=== PATIENT | female | born 1970 | race Caucasian/White ===

== ENCOUNTER → 2016-09-09 | Outpatient (CLI) | payer OTHER ==
--- NOTE | 2016-09-09 12:15 | XR ---
EXAMINATION TYPE: XR hand complete bilateral DATE OF EXAM: 09/09/2016 10:36 AM CLINICAL HISTORY: pain TECHNIQUE: Frontal, lateral and oblique images of the left hand are obtained. COMPARISON: None. FINDINGS: There is no acute fracture/dislocation evident. The joint spaces appear within normal limi ts. The overlying soft tissue appears unremarkable. IMPRESSION: There is no acute fracture or dislocation. ICD 10 NO FRACTURE, INITIAL EVALUATION EXAMINATION TYPE: XR hand complete bilateral DATE OF EXAM: 09/09/2016 10:36 AM CLINICAL HISTORY: pain TECHNIQUE: Frontal, lateral and oblique images of the right hand are obtained. COMPARISON: None. FINDINGS: There is no acute fracture/dislocation evident. The joint spaces appear within normal limi ts. The overlying soft tissue appears unremarkable. IMPRESSION: There is no acute fracture or dislocation ICD 10 NO FRACTURE, INITIAL EVALUATION
== END | disposition home or self-care (01) ==
LOC: RADXRMAIN 10:23
PROVIDERS: ATTEND Family Medicine
DX: M19.042 Primary osteoarthritis, left hand (principal); M19.041 Primary osteoarthritis, right hand

== ENCOUNTER → 2016-09-18 | Outpatient (CLI) | payer OTHER ==
--- NOTE | 2016-09-18 10:50 | US ---
EXAMINATION TYPE: US abdomen complete DATE OF EXAM: 09/18/2016 9:46 AM COMPARISON: Previous study dated 01/18/2016. CLINICAL HISTORY: E27.8 Enlarged adrenal. Enlarged left adrenal, GB removed 01/2016 EXAM MEASUREMENTS: Liver Length: 17.0 cm CBD: 0.3 cm CHD: 0.3 cm Spleen: 10.1 cm Right Kidney: 11.2 x 5.7 x 3.8 cm Left Kidney: 11.1 x 4.5 x 4.7 cm Pancreas: wnl Liver: wnl Gallbladder: Surgically absent CBD: wnl CHD: wnl Spleen: wnl Right Kidney: wnl Left Kidney: wnl Upper IVC: seen Abd Aorta: seen Adrenal glands not visualized The adrenal glands are not visualized. The remainder the examination is within normal limits. IMPRESSION: 1. NONVISUALIZATION ADRENAL GLANDS. 2. STATUS POST CHOLECYSTECTOMY.
== END | disposition home or self-care (01) ==
LOC: RADUSWWP 08:49
PROVIDERS: ATTEND Surgery
DX: E27.8 Other specified disorders of adrenal gland (principal); Z90.49 Acquired absence of other specified parts of digestive tract
CPT/HCPCS: 76700; 77063

== ENCOUNTER → 2016-09-18 | Outpatient (CLI) | payer OTHER ==
--- NOTE | 2016-09-21 13:07 | MM ---
Reason for exam: screening (asymptomatic). Last mammogram was performed 1 year and 6 months ago. History: Patient had first child at age 35. Taking hormonal contraceptives for 6 months. Physical Findings: A clinical breast exam by your physician is recommended on an annual basis and results should be correlated with mammographic findings. MG 3D Screening Mammo W/Cad Bilateral CC and MLO view(s) were taken. Prior study comparison: March 15, 2015, bilateral MG 3d screening mammo w/cad. The breast tissue is heterogeneously dense. This may lower the sensitivity of mammography. Finding: There is a 7 mm high density, oval mass located 7 cm from the nipple in the upper outer quadrant, posterior position of the left breast on CC view, consistent with possible cyst, mass. New finding since March 15, 2015. ASSESSMENT: Incomplete: need additional imaging evaluation, BI-RAD 0 RECOMMENDATION: Ultrasound of the left breast. [facility] will attempt to contact patient to return for ultrasound.
== END | disposition home or self-care (01) ==
LOC: RADMAMWWP 08:53
PROVIDERS: ATTEND Family Medicine
DX: Z12.31 Encounter for screening mammogram for malignant neoplasm of breast (principal)
CPT/HCPCS: 77063; G0202

== ENCOUNTER → 2016-09-24 | Outpatient (CLI) | payer OTHER | END | disposition home or self-care (01) | LOC: RADMRIMAIN 08:29 | PROVIDERS: ATTEND Family Medicine | DX: Z53.9 Procedure and treatment not carried out, unspecified reason (principal) ==

== ENCOUNTER → 2016-10-05 | Outpatient (CLI) | payer OTHER ==
--- NOTE | 2016-10-05 08:38 | USB ---
Reason for exam: additional evaluation requested from abnormal screening. History: Patient had first child at age 35. Taking hormonal contraceptives for 6 months. Physical Findings: Nurse did not find any significant physical abnormalities on exam. US Breast Workup LT Left breast ultrasound includes all four quadrants, the retroareolar region and axilla. Finding demonstrates three oval, cystic lesions measuring 1.0 x 0.5 x 0.8cm at 1 o'clock, a 0.6 x 0.5 x 0.5cm at 1 o'clock and 0.5 x 0.3 x 0.5cm at 2 o'clock. These results were verbally communicated with the patient and result sheet given to the patient on 10/05/16. ASSESSMENT: Benign, BI-RAD 2 RECOMMENDATION: Return to routine screening mammogram schedule for both breasts.
== END | disposition home or self-care (01) ==
LOC: RADUSWWP 07:39
PROVIDERS: ATTEND Family Medicine
DX: R92.8 Other abnormal and inconclusive findings on diagnostic imaging of breast (principal)

== ENCOUNTER → 2017-10-01 | Outpatient (CLI) | payer OTHER ==
--- NOTE | 2017-10-02 12:28 | US ---
EXAMINATION TYPE: US thyroid st tissue head/neck DATE OF EXAM: 10/01/2017 COMPARISON: NONE CLINICAL HISTORY: E05.90 thyrotoxicosis, hyperthyroidism. GLAND SIZE: Right Lobe: 4.9 x 1.8 x 1.7 cm Overall Parenchyma: heterogenous Left Lobe: 5.3 x 1.7 x 1.6 cm Overall Parenchyma: heterogeneous Isthmus Thickness: 0.3 cm NODULES RIGHT: # of nodules measured on right: 0 Subcentimeter nodules noted. LEFT: # of nodules measured on left: 2 1. 1.0 X 0.5 x 0.8 cm hypoechoic solid nodule at the upper pole with well-defined margins. This no dule is wider than tall and shows intranodular vascularity. No prior size 2. 1.3 X 0.6 x 0.8 cm hypoechoic solid nodule at the lower/medial pole with well-defined margins. T his nodule is wider than tall and shows intranodular vascularity. No prior size ISTHMUS: # of nodules measured in the isthmus: Bilateral neck scanned, no evidence of lymphadenopathy. IMPRESSION: Multiple bilateral thyroid nodules.
== END | disposition home or self-care (01) ==
LOC: RADUSMAIN 17:34
PROVIDERS: ATTEND Family Medicine
DX: E04.2 Nontoxic multinodular goiter (principal)
CPT/HCPCS: 76536

== ENCOUNTER → 2017-11-24 | Outpatient (CLI) | payer OTHER ==
--- NOTE | 2017-11-26 08:53 | MM ---
Reason for exam: screening (asymptomatic). Last mammogram was performed 1 year and 2 months ago. History: Patient had first child at age 35. Taking hormonal contraceptives for 6 months. Physical Findings: A clinical breast exam by your physician is recommended on an annual basis and results should be correlated with mammographic findings. MG Screening Mammo w CAD Bilateral CC and MLO view(s) were taken. Prior study comparison: September 18, 2016, bilateral MG 3d screening mammo w/cad. March 15, 2015, bilateral MG 3d screening mammo w/cad. The breast tissue is heterogeneously dense. This may lower the sensitivity of mammography. Finding: There is a 9 mm obscured mass in the upper quadrant, central position of the right breast at middle depth. Left suspicious middle depth asymmetry. ASSESSMENT: Incomplete: need additional imaging evaluation, BI-RAD 0 RECOMMENDATION: Special view mammogram of both breasts. If lesion persists on supplemental views, image directed ultrasound is recommended. [facility] will attempt to contact patient to return for supplemental views and ultrasound if indicated.
== END | disposition home or self-care (01) ==
LOC: RADMAMWWP 16:45
PROVIDERS: ATTEND Obstetrics & Gynecology
DX: Z12.31 Encounter for screening mammogram for malignant neoplasm of breast (principal)
CPT/HCPCS: 77067

== ENCOUNTER → 2017-12-07 | Outpatient (CLI) | payer OTHER ==
--- NOTE | 2017-12-07 14:20 | MM ---
Reason for exam: additional evaluation requested from abnormal screening. Last mammogram was performed less than 1 month ago. History: Patient had first child at age 35. Taking hormonal contraceptives for 6 months. MG Work Up Mamm w CAD BILAT Bilateral spot compression CC, spot compression MLO, and ML view(s) were taken. Prior study comparison: November 24, 2017, bilateral MG screening mammo w CAD. September 18, 2016, bilateral MG 3d screening mammo w/cad. The breast tissue is heterogeneously dense. This may lower the sensitivity of mammography. There are two adjacent persistent masses in the central lateral right breast at middle depth. Left asymmetry improves on additional views and appears as fibroglandular tissue. These results were verbally communicated with the patient and result sheet given to the patient on 12/07/17. ASSESSMENT: Incomplete: need additional imaging evaluation, BI-RAD 0 RECOMMENDATION: Ultrasound of the right breast. (lateral)
--- NOTE | 2017-12-07 14:23 | USB ---
Reason for exam: additional evaluation requested from abnormal screening. History: Patient had first child at age 35. Taking hormonal contraceptives for 6 months. US Breast Workup Limited RT Right limited breast ultrasound including focal area of concern, retroareolar and axilla demonstrates several cystic, benign lesions measuring 1.3 x 1.1 x 0.7cm at 9 o'clock, 1.0 x 0.8 x 0.5cm at 9 o'clock, 0.6 x 0.5 x 0.3cm at 9 o'clock and 0.7 x 0.6 x 0.6cm at 11 o'clock. These results were verbally communicated with the patient and result sheet given to the patient on 12/07/17. ASSESSMENT: Benign, BI-RAD 2 RECOMMENDATION: Return to routine screening mammogram schedule for both breasts.
== END | disposition home or self-care (01) ==
LOC: RADMAMWWP 10:22
PROVIDERS: ATTEND Obstetrics & Gynecology
DX: R92.8 Other abnormal and inconclusive findings on diagnostic imaging of breast (principal)
CPT/HCPCS: 77066

== ENCOUNTER 2018-01-03 11:48 | Day surgery (SDC) | payer OTHER ==
[2017-12-30 18:52] VITALS: BMI 29.5
--- NOTE | 2018-01-02 17:02 | P.GSHP ---
History of Present Illness H&P Date: 01/03/18 CHIEF COMPLAINT: GERD HISTORY OF PRESENT ILLNESS: The patient is a 47-year-old female who presents reports gastroesophageal reflux disease. Upper endoscopy was offered for further evaluation and management. PAST MEDICAL HISTORY: Please see list. PAST SURGICAL HISTORY: Please see list. MEDICATIONS: Please see list. ALLERGIES: Please see list. SOCIAL HISTORY: No illicit drug use FAMILY HISTORY: No reports of Crohn disease or ulcerative colitis. REVIEW OF ORGAN SYSTEMS: CONSTITUTIONAL: No reports of fevers or chills. GI: Denies any blood in stools or constipation. PHYSICAL EXAM: VITAL SIGNS: Stable GENERAL: Well-developed and pleasant in no acute distress. HEENT: No scleral icterus. Extraocular movements grossly intact. Moist buccal mucosa. NECK: Supple without lymphadenopathy. CHEST: Unlabored respirations. Equal bilateral excursions. CARDIOVASCULAR: Regular rate and rhythm. Distal 2+ pulses. ABDOMEN: Soft, nondistended. MUSCULOSKELETAL: No clubbing, cyanosis, or edema. ASSESSMENT: 1. Gastroesophageal reflux disease PLAN: 1. Recommend proceeding with an upper endoscopy Past Medical History Past Medical History: Asthma, GERD/Reflux Additional Past Medical History / Comment(s): RUQ pain History of Any Multi-Drug Resistant Organisms: None Reported Past Surgical History: Cholecystectomy, Tonsillectomy Additional Past Surgical History / Comment(s): LAPAROSCOPY FOR Ovarian Cyst Past Anesthesia/Blood Transfusion Reactions: No Reported Reaction Smoking Status: Former smoker - Past Family History Mother Family Medical History: No Reported History Medications and Allergies Home Medications Medication Instructions Recorded Confirmed Type Butalb/Acetaminophen/Caffeine 1 - 2 cap PO Q4HR PRN 12/30/17 12/30/17 History [Fioricet 50-300-40 mg Capsule] Celecoxib [CeleBREX] 200 mg PO BID 12/30/17 12/30/17 History Esomeprazole Magnesium [NexIUM 20 mg PO DAILY 12/30/17 12/30/17 History 24Hr] Levonorgestrel [Mirena] 1 implant VAGINAL [id number] 12/30/17 12/30/17 History Allergies Allergy/AdvReac Type Severity Reaction Status Date / Time No Known Allergies Allergy Verified 12/30/17 18:38
[~2018-01-03 11:48] MED LIST: LACTATED RINGERS 1,000 ML IV SCH
[2018-01-03] MEDS ORDERED: LIDOCAINE 1% 20 ML VIAL (10MG/ML) FOR IV START INTRADERMA ONE (13:03)
[2018-01-03 13:06] VITALS: TEMP 98.2
[2018-01-03] MEDS ORDERED: PROPOFOL 10 MG/ML 20 ML VIAL IV ONE (13:52)
--- NOTE | 2018-01-03 14:09 | P.PCN ---
Date of Procedure: 01/03/18 Description of Procedure: PREOPERATIVE DIAGNOSIS: Gastroesophageal reflux disease. POSTOPERATIVE DIAGNOSIS: Gastroesophageal reflux disease. Diaphragmatic hiatal hernia without obstruction. Gastric polyps Mild gastritis OPERATION: Esophagogastroduodenoscopy with biopsies along antrum. SURGEON: Nitza Dumas MD ANESTHESIA: MAC. INDICATIONS: The patient is a 47-year-old female who presents with a history of reflux disease. Benefits and risks of the procedure were described. Informed consent was obtained. DESCRIPTION: The patient was brought into the endoscopy suite and laid in the left lateral decubitus position. An Olympus gastroscope was passed along the posterior oropharynx down to the distal esophagus where the squamocolumnar junction was encountered at 34 cm from the incisors. The stomach was entered and no bile reflux was found. Additional findings are listed below. Biopsies with cold forceps were obtained of the antrum. The first through third portion of the duodenum was examined and unremarkable. Retroflexion of the scope confirmed Hill grade 4 lower esophageal valve. The squamocolumnar junction demonstrated LA grade B erosive esophagitis. The stomach was desufflated. The patient tolerated the procedure well. FINDINGS: Squamocolumnar junction 34 cm from the incisors. Diaphragmatic hiatus at 40 cm. Hiatal hernia 6 cm, sliding type Hill grade 4 lower esophageal valve. LA grade B erosive esophagitis. Mild chronic gastritis Gastric polyp along antrum biopsied No active duodenitis. RECOMMENDATIONS: Upper endoscopy as needed. Plan - Discharge Summary New Discharge Prescriptions: No Action Butalb/Acetaminophen/Caffeine [Fioricet 50-300-40 mg Capsule] 1 - 2 cap PO Q4HR PRN PRN Reason: Migraine Headache Celecoxib [CeleBREX] 200 mg PO BID Esomeprazole Magnesium [NexIUM 24Hr] 20 mg PO DAILY Levonorgestrel [Mirena] 1 implant VAGINAL [id number] Discharge Medication List Butalb/Acetaminophen/Caffeine [Fioricet 50-300-40 mg Capsule] 1 - 2 cap PO Q4HR PRN 12/30/17 [History] Celecoxib [CeleBREX] 200 mg PO BID 12/30/17 [History] Esomeprazole Magnesium [NexIUM 24Hr] 20 mg PO DAILY 12/30/17 [History] Levonorgestrel [Mirena] 1 implant VAGINAL [id number] 12/30/17 [History]
[2018-01-03 14:31] VITALS: BP 115/74; PULSE 66; RESP 18
== END 2018-01-03 14:55 | disposition home or self-care (01) ==
LOC: ORWHC2ENDO 11:48
PROVIDERS: ATTEND Surgery Plastic and Reconstructive Surgery
DX: K29.50 Unspecified chronic gastritis without bleeding (principal); K22.10 Ulcer of esophagus without bleeding; K44.9 Diaphragmatic hernia without obstruction or gangrene; K21.9 Gastro-esophageal reflux disease without esophagitis; K31.7 Polyp of stomach and duodenum; J45.909 Unspecified asthma, uncomplicated; Z79.899 Other long term (current) drug therapy; Z97.5 Presence of (intrauterine) contraceptive device; Z87.891 Personal history of nicotine dependence
CPT/HCPCS: 81025; 88305; 43239; J2704

== ENCOUNTER → 2018-02-17 | Outpatient (CLI) | payer OTHER | LOC: LABWHC1 08:41 | PROVIDERS: ATTEND Surgery Plastic and Reconstructive Surgery | DX: Z01.810 Encounter for preprocedural cardiovascular examination (principal); Z01.812 Encounter for preprocedural laboratory examination | CPT/HCPCS: 36415; 93005 ==

== ENCOUNTER → 2018-05-30 | Outpatient (CLI) | payer OTHER ==
[2018-05-30 08:26] LABS: Basophils # (A) 0.1 k/uL (0-0.2); Basophils % (A) 1 %; Eosinophils # (A) 0.2 k/uL (0-0.7); Eosinophils % (A) 2 %; HCT 44.5 % (34.0-46.0); HGB 14.4 gm/dL (11.4-16.0); Lymphocytes # (A) 2.3 k/uL (1.0-4.8); Lymphocytes % (A) 31 %; MCH 30.4 pg (25.0-35.0); MCHC 32.5 g/dL (31.0-37.0); MCV 93.5 fL (80.0-100.0); Mean Platelet Volume 7.8; Monocytes # (A) 0.4 k/uL (0-1.0); Monocytes % (A) 5 %; Neutrophils # (A) 4.2 k/uL (1.3-7.7); Neutrophils % (A) 58 %; Platelet Count 289 k/uL (150-450); RBC 4.76 m/uL (3.80-5.40); RDW 12.9 % (11.5-15.5); WBC 7.2 k/uL (3.8-10.6)
== END | disposition home or self-care (01) ==
LOC: LABWHC1 07:50
PROVIDERS: ATTEND Anesthesiology
DX: Z01.818 Encounter for other preprocedural examination (principal)
CPT/HCPCS: 36415; 85025

== ENCOUNTER 2018-06-03 07:20 | Inpatient (IN) | payer OTHER ==
[2018-05-27 13:05] VITALS: BMI 31.0
[~2018-06-03 07:20] MED LIST changes: +HEPARIN SODIUM,PORCINE 5,000 UNIT/ML 1 ML VIAL SQ ONE; -LACTATED RINGERS 1,000 ML IV SCH; +ceFAZolin IN SWFI 2 GM/20 ML SYRINGE IVP ONE
[2018-06-03] MEDS ORDERED: ACETAMINOPHEN IV (For NPO) 1,000 MG in EMPTY BAG 1 BAG IVPB ONE (09:28)
--- NOTE | 2018-06-03 09:29 | P.GSHP ---
History of Present Illness H&P Date: 06/03/18 CHIEF COMPLAINT: Paraesophageal hiatal hernia with gastroesophageal reflux disease. HISTORY OF PRESENT ILLNESS: The patient is a 48-year-old female who presents with paraesophageal hiatal hernia. She has completed an esophageal manometry including upper endoscopy workup. Now she presents for surgical intervention. PAST MEDICAL HISTORY: Please see list. PAST SURGICAL HISTORY: Please see list. MEDICATIONS: Please see list. ALLERGIES: Please see list. SOCIAL HISTORY: No illicit drug use FAMILY HISTORY: No reports of Crohn disease or ulcerative colitis. REVIEW OF ORGAN SYSTEMS: CONSTITUTIONAL: No reports of fevers or chills. GI: Denies any blood in stools or constipation. PHYSICAL EXAM: VITAL SIGNS: Stable GENERAL: Well-developed pleasant and in no acute distress. HEENT: No scleral icterus. Extraocular movements grossly intact. Moist buccal mucosa. NECK: Supple without lymphadenopathy. CHEST: Unlabored respirations. Equal bilateral excursions. CARDIOVASCULAR: Regular rate and rhythm. Distal 2+ pulses. ABDOMEN: Soft, nondistended. No peritoneal signs. MUSCULOSKELETAL: No clubbing, cyanosis, or edema. SKIN: Well-perfused. Good skin turgor. MANOMETRY: Shows no evidence of achalasia or scleroderma. Findings consistent with ineffective esophageal motility. ASSESSMENT: 1. Diaphragmatic paraesophageal hiatal hernia with severe gastroesophageal reflux disease. PLAN: 1. Recommend proceeding with a robotic paraesophageal hiatal hernia with possible mesh. 2. Benefits and risks of surgical intervention was discussed including possibility of open technique. 3. Inpatient hospitalization recommended of 2 nights 4. DVT prophylaxis. 5. Antibiotic prophylaxis. Past Medical History Past Medical History: Asthma, GERD/Reflux, Osteoarthritis (OA) Additional Past Medical History / Comment(s): RUQ pain, kidney stones History of Any Multi-Drug Resistant Organisms: None Reported Past Surgical History: Cholecystectomy, Tonsillectomy Additional Past Surgical History / Comment(s): ovarian cyst Past Anesthesia/Blood Transfusion Reactions: No Reported Reaction Smoking Status: Former smoker - Past Family History Mother Family Medical History: No Reported History Medications and Allergies Home Medications Medication Instructions Recorded Confirmed Type Butalb/Acetaminophen/Caffeine 1 - 2 cap PO Q4HR PRN 12/30/17 05/27/18 History [Fioricet 50-300-40 mg Capsule] Celecoxib [CeleBREX] 200 mg PO BID 12/30/17 05/27/18 History Esomeprazole Magnesium [NexIUM 20 mg PO DAILY 12/30/17 05/27/18 History 24Hr] Levonorgestrel [Mirena] 1 implant VAGINAL [id number] 12/30/17 05/27/18 History Allergies Allergy/AdvReac Type Severity Reaction Status Date / Time No Known Allergies Allergy Verified 05/27/18 12:36
[2018-06-03] MEDS ORDERED: SCOPOLAMINE 1.5MG/72HR PATCH TRANSDERM STA (09:31)
[2018-06-03] MEDS ORDERED: LACTATED RINGERS 1,000 ML IV ONE ×2 (13:14→16:28)
[2018-06-03] MEDS ORDERED: LIDOCAINE 1% 20 ML VIAL (10MG/ML) FOR IV START INTRADERMA ONE (13:15)
[2018-06-03] MEDS ORDERED: ONDANSETRON 4 MG/2 ML VIAL IVP ONE ×2 (13:15→17:15)
[2018-06-03] MEDS ORDERED: DEXAMETHASONE SOD PHOS (MDV) 100 MG/10 ML VIAL IVP ONE (13:16)
[2018-06-03] MEDS ORDERED: MIDAZOLAM 2 MG/2 ML VIAL IVP ONE (13:41)
[2018-06-03] MEDS ORDERED: BUPIVACAIN-EPI 0.25%-1:200,000 30 ML VIAL SQ ONE ×2 (14:55→15:23)
[2018-06-03] MEDS ORDERED: NEOSTIGMINE 1 MG/ML 10 ML VIAL ONE (14:59)
[2018-06-03] MEDS ORDERED: PHENYLEPHRINE-0.9% NACL SYG 1 MG/10 ML SYRINGE ONE (14:59)
[2018-06-03] MEDS ORDERED: GLYCOPYRROLATE 0.2 MG/ML 2 ML VIAL ONE (14:59)
[2018-06-03] MEDS ORDERED: fentaNYL (PF) 50 MCG/ML 2 ML AMP ONE (14:59)
[2018-06-03] MEDS ORDERED: SUCCINYLCHOLINE CHLORIDE 100 MG/5 ML SYR IV ONE (14:59)
[2018-06-03] MEDS ORDERED: LIDOCAINE 1% INJ 10MG/ML (20 ML MDV) ONE (14:59)
[2018-06-03] MEDS ORDERED: ROCURONIUM BROMIDE 10 MG/ML 10 ML VIAL IV ONE (14:59)
[2018-06-03] MEDS ORDERED: MIDAZOLAM 2 MG/2 ML VIAL ONE (14:59)
[2018-06-03] MEDS ORDERED: PROPOFOL 10 MG/ML 20 ML VIAL IV ONE (14:59)
[2018-06-03] MEDS ORDERED: HYDROmorphone 0.5 MG/0.5 ML SYRINGE IVP ONE ×2 (16:53→17:01)
[2018-06-03] MEDS ORDERED: HYDROcodone/APAP 15 ML SOLUTION PO PRN (16:54)
[2018-06-03] MEDS ORDERED: HYDROmorphone 1 MG/ML 1 ML SYRINGE IVP PRN (16:54)
[2018-06-03] MEDS ORDERED: NALOXONE 0.4 MG/ML 1 ML VIAL IV PRN (16:54)
--- NOTE | 2018-06-03 17:01 | P.OP ---
Date of Procedure: 06/03/18 Description of Procedure: DESCRIPTION OF PROCEDURE(S): SURGEON: NORRIS PARMAR MD PREOPERATIVE DIAGNOSES: 1. Gastroesophageal reflux disease. 2. Paraesophageal hiatal hernia, midline. 3. Asthma 4. Osteoarthritis 5. Migraine headaches 6. Obesity due to excess calories, BMI 31.0 7. Ineffective esophageal motility POSTOPERATIVE DIAGNOSES: 1. Gastroesophageal reflux disease. 2. Paraesophageal hiatal hernia, midline. 3. Asthma 4. Osteoarthritis 5. Migraine headaches 6. Obesity due to excess calories, BMI 31.0 7. Ineffective esophageal motility OPERATION: 1. Robotic-assisted da Claudia Xi laparoscopic repair of paraesophageal hiatal hernia, 4 x 5 cm, with [place] Biopatch A 8 x 8 cm. 2. Placement of 56-Grenadian esophageal dilation bougie ANESTHESIA: General with local anesthetic. ESTIMATED BLOOD LOSS: 5 mL SPECIMENS REMOVED: None COMPLICATIONS: None. Pathology: none sent Condition: stable Disposition: floor FINDINGS: 1. Midline paraesophageal hiatal hernia 4 x 5 2. Intraoperative upper endoscopy confirms complete closure of hiatal hernia from Hill grade 4 to Hill grade 1 INDICATIONS: The patient is a 48-year-old female who presents with gastroesophageal reflux disease and a symptomatic diaphragmatic hiatal hernia. Preoperative workup including upper endoscopy demonstrated a Hill grade 4 lower esophageal valve. She completed an esophageal manometry. Given the severity of symptoms, she had elected for surgical intervention. Benefits and risks including bleeding, infection, recurrence, dysphagia, injury to the lung, need for further surgery was described at length. Informed consent was obtained. DESCRIPTION: The patient was brought into the operating room and placed in supine position. Preoperatively he had received heparin subcutaneously for DVT prophylaxis. After general induction, the abdomen was prepped and draped in standard sterile fashion. The patient had previously voided prior to coming to the operating room. Ioban draping was placed along the abdomen. A timeout protocol was confirmed with the surgical team, for which the patient's name, procedure to be performed including DVT prophylaxis with bilateral SCDs, and preoperative antibiotics were also confirmed. A robotic da Claudia Xi system was prepped and primed. At 12 cm from the xiphoid to just below the umbilicus, proposed port sites were marked with indelible marker along the left axillary line, left mid-clavicular line with each ports were marked 10 cm from each other. A 5 mm 0 degrees laparoscopic trocar entry was performed along the left upper quadrant. The abdomen was insufflated to 15 mmHg pressure was tolerated well. Diagnostic laparoscopy demonstrated no injury to bowel, viscera, or mesentery. No injury had occurred to the small bowel or viscera. Next, one 8 mm robotic port was placed along the right upper abdomen. An 8-mm port was were placed along the left lateral abdominal wall. The camera 8-mm port was maintained along the epigastrium via the hernia defect. Another 12 mm port was placed along the left upper abdominal wall after exchanging the 5 mm port. Please note that the ports were placed at least 20 cm away from the target anatomy. Care was taken to check that each robotic arm were safely away from collision with the bed or the patient. At the epigastrium, a median sized Jose liver retractor was placed under direct visualization with the [employer] Shop Helper placed under the right shoulder of the patient. All robotic arms were used. The patient was repositioned in reverse Trendelenburg position at 14-degrees after lowering the bed. The robot was docked above the right side of the patient. Using a grasper for arm 3, a grasper for arm 1, including vessel sealer for arm 2, the robotic system was docked and primed as described. Instruments were interchanged by the permit review assistant. I had sat at the console. The gastrohepatic ligament was cleaved using a vessel sealer. Next, the phrenoesophageal ligament was mobilized and the distal esophagus was mobilized circumferentially. The left and right crura was identified. Dissection into the mediastinum was performed to release the esophagus into the abdominal cavity. Care was taken to avoid any gastrotomy. The measured defect was consistent with 5 cm axial length and 4 cm in width. After dissection, the distal esophagus of 3 cm was brought into the abdominal cavity. Once the hiatus and crura was dissected, 2-0 VLOC suture was placed to reapproximate the diaphragmatic hiatus posteriorly. To buttress the repair, a [place] Biopatch A was prepared along the back table and cut in half of a baird-hole fashion as to reinforce the repair as an underlay. The mesh was placed along the crural repair and tagged using horizontal mattress sutures using 2-0 VLOC. I went to the head of the bed to perform intraoperative esophagogastroduodenoscopy and placement of a 56Fr bougie. The patient has history of ineffective esophageal dysmotility and a 56-Grenadian bougie was placed under direct visualization. The bougie was placed for 1 minute and then removed. An Olympus gastroscope was passed through posterior oropharynx. Retroflexion of the scope confirmed a Hill grade 1 lower esophageal valve. The stomach had been desufflated. No evidence of leaks were found of the esophagus or stomach. The squamocolumnar junction and hiatus was placed at 40 cm from the incisors. The GI tract with desufflated This concluded the endoscopic portion of the case. The robot was undocked from the patient. I re-scrubbed into the case. All instruments and pneumoperitoneum and specimens were evacuated from the abdominal cavity. Incisions were reapproximated using 4-0 Monocryl in an interrupted subcuticular fashion. Liquid glue was applied to the skin. Local anesthetic was infiltrated in all wounds for postop analgesia. Multiple intra-abdominal films were obtained. At the end of the procedure, needle, sponge, and instrument count was verified correct by the electron beam photo mask technician. The patient had tolerated the procedure well and was taken to the postanesthesia unit in stable condition. Intraoperative films were reviewed with the patient's family who was pleased with the level of care.
[2018-06-03] MEDS ORDERED: MEPERIDINE 50 MG/ML SYRINGE IVP ONE (17:20)
[2018-06-03] MEDS: ONDANSETRON 4 MG/2 ML VIAL IVP SCH (18:09)
[2018-06-03] MEDS: KETOROLAC 30 MG/ML 1 ML VIAL IVP SCH (18:10)
[2018-06-03] MEDS: HYOSCYAMINE ORAL DROPS 1.875 MG/15 ML BOTTLE PO SCH (18:11)
[2018-06-03] MEDS: SIMETHICONE 40 MG/0.6 ML DROPS 2,000 MG/30 ML BOTTLE PO SCH (18:12)
--- NOTE | 2018-06-03 18:48 | P.DS ---
Providers Date of admission: 06/03/18 12:36 Expected date of discharge: 06/04/18 Attending physician: Nitza Dumas Primary care physician: Thierry Mcintosh - Discharge Diagnosis(es) (1) Paraesophageal hiatal hernia Status: Acute (2) Gastroesophageal reflux disease Status: Acute (3) Ineffective esophageal motility Status: Acute Hospital Course: POSTOPERATIVE DIAGNOSES: 1. Gastroesophageal reflux disease. 2. Paraesophageal hiatal hernia, midline. 3. Asthma 4. Osteoarthritis 5. Migraine headaches 6. Obesity due to excess calories, BMI 31.0 7. Ineffective esophageal motility COURSE: The patient is a 48-year-old female who presents with gastroesophageal reflux disease and a symptomatic diaphragmatic hiatal hernia. Preoperative workup including upper endoscopy demonstrated a Hill grade 4 lower esophageal valve. She completed an esophageal manometry. Given the severity of symptoms, she had elected for surgical intervention. Benefits and risks including bleeding , infection, recurrence, dysphagia, injury to the lung, need for further surgery was described at length. Informed consent was obtained. She underwent a robotic-assisted hiatal hernia repair. Postdischarge diet were reviewed in detail. Esophagram was obtained. Patient was placed on a Mitch diet. Pertinent Studies: Esophagram performed Procedures: OPERATION: 1. Robotic-assisted da Claudia Xi laparoscopic repair of paraesophageal hiatal hernia, 4 x 5 cm, with [employer] Biopatch A 8 x 8 cm. 2. Placement of 56-Welsh esophageal dilation bougie ANESTHESIA: General with local anesthetic. ESTIMATED BLOOD LOSS: 5 mL SPECIMENS REMOVED: None COMPLICATIONS: None. Pathology: none sent Condition: stable Disposition: floor FINDINGS: 1. Midline paraesophageal hiatal hernia 4 x 5 2. Intraoperative upper endoscopy confirms complete closure of hiatal hernia from Hill grade 4 to Hill grade 1 Patient Condition at Discharge: Stable Plan - Discharge Summary Discharge Rx Participant: Yes New Discharge Prescriptions: New Bisacodyl [Dulcolax] 5 mg PO DAILY PRN #10 tablet.dr PRN Reason: Constipation HYDROcodone/APAP [[place] Elixir 7.5-325Mg/15Ml] 15 ml PO Q4HR PRN 3 Days #270 ml PRN Reason: Pain Ondansetron Odt [Zofran Odt] 4 mg PO Q8HR PRN #9 tab PRN Reason: Nausea Simethicone 40 mg/0.6 ml Drops [Mylicon Drops] 40 mg PO PCHS PRN #30 ml PRN Reason: Gas No Action Butalb/Acetaminophen/Caffeine [Fioricet 50-300-40 mg Capsule] 1 - 2 cap PO Q4HR PRN PRN Reason: Migraine Headache Celecoxib [CeleBREX] 200 mg PO BID Esomeprazole Magnesium [NexIUM 24Hr] 20 mg PO DAILY Levonorgestrel [Mirena] 1 implant VAGINAL [id number] Discharge Medication List Butalb/Acetaminophen/Caffeine [Fioricet 50-300-40 mg Capsule] 1 - 2 cap PO Q4HR PRN 12/30/17 [History] Celecoxib [CeleBREX] 200 mg PO BID 12/30/17 [History] Esomeprazole Magnesium [NexIUM 24Hr] 20 mg PO DAILY 12/30/17 [History] Levonorgestrel [Mirena] 1 implant VAGINAL [id number] 12/30/17 [History] Bisacodyl [Dulcolax] 5 mg PO DAILY PRN #10 tablet. 06/03/18 [Rx] HYDROcodone/APAP [[place] Elixir 7.5-325Mg/15Ml] 15 ml PO Q4HR PRN 3 Days #270 ml 06/03/18 [Rx] Ondansetron Odt [Zofran Odt] 4 mg PO Q8HR PRN #9 tab 06/03/18 [Rx] Simethicone 40 mg/0.6 ml Drops [Mylicon Drops] 40 mg PO PCHS PRN #30 ml [Rx] Follow up Appointment(s)/Referral(s): Nitza Dumas MD [STAFF PHYSICIAN] - 06/15/18 Patient Instructions/Handouts: Hiatal Hernia (DC), Laparoscopic Hiatal Hernia Repair (DC) Activity/Diet/Wound Care/Special Instructions: No lifting over 4 pounds in 4 weeks. May shower. No bathtub soaks. Full liquid diet per discussion with your surgeon. No straws. No carbonated beverages. Discharge Disposition: HOME SELF-CARE
[2018-06-03] MEDS: DEXAMETHASONE SOD PHOSPHATE 4 MG/ML 1 ML VIAL IV SCH (19:48)
[2018-06-03] MEDS: 0.9% NACL WITH KCL 20 MEQ/L 1,000 ML IV SCH (19:54)
[2018-06-03 21:54] VITALS: RESP 16
[2018-06-03] MEDS: ALBUTEROL NEBULIZED 2.5 MG/3 ML INHALATION SCH (21:55)
[2018-06-03] MEDS: ceFAZolin IN SWFI 2 GM/20 ML SYRINGE IVP SCH (23:03)
[2018-06-04] MEDS: SIMETHICONE 40 MG/0.6 ML DROPS 2,000 MG/30 ML BOTTLE PO SCH ×3 (00:04→12:57)
[2018-06-04] MEDS: HYOSCYAMINE ORAL DROPS 1.875 MG/15 ML BOTTLE PO SCH ×3 (00:05→12:56)
[2018-06-04] MEDS: KETOROLAC 30 MG/ML 1 ML VIAL IVP SCH ×3 (00:06→12:51)
[2018-06-04] MEDS: ONDANSETRON 4 MG/2 ML VIAL IVP SCH ×3 (00:06→12:50)
[2018-06-04] MEDS: DEXAMETHASONE SOD PHOSPHATE 4 MG/ML 1 ML VIAL IV SCH ×3 (00:07→12:53)
[2018-06-04] MEDS: 0.9% NACL WITH KCL 20 MEQ/L 1,000 ML IV SCH (04:31)
[2018-06-04 05:49] LABS: Basophils % (A) 0 %; Eosinophils % (A) 0 %; HCT 39.8 % (34.0-46.0); HGB 12.7 gm/dL (11.4-16.0); Lymphocytes # (A) 1.2 k/uL (1.0-4.8); Lymphocytes % (A) 12 %; MCH 29.8 pg (25.0-35.0); MCHC 31.9 g/dL (31.0-37.0); MCV 93.6 fL (80.0-100.0); Mean Platelet Volume 7.5; Monocytes # (A) 0.2 k/uL (0-1.0); Monocytes % (A) 2 %; Neutrophils # (A) 7.9 k/uL (1.3-7.7); Neutrophils % (A) 85 %; Platelet Count 265 k/uL (150-450); RBC 4.25 m/uL (3.80-5.40); RDW 12.9 % (11.5-15.5); WBC 9.3 k/uL (3.8-10.6)
[2018-06-04 05:58] LABS: Anion Gap 6 mmol/L; Blood Urea Nitrogen 15 mg/dL (7-17); Calcium 8.4 mg/dL (8.4-10.2); Carbon Dioxide 21 mmol/L (22-30); Chloride 110 mmol/L (98-107); Magnesium 1.9 mg/dL (1.6-2.3); Phosphorus 3.5 mg/dL (2.5-4.5); Potassium 4.8 mmol/L (3.5-5.1); Sodium 137 mmol/L (137-145)
[2018-06-04] MEDS ORDERED: 0.9% NACL WITH KCL 20 MEQ/L 1,000 ML IV SCH (08:00)
[2018-06-04] MEDS ORDERED: PANTOPRAZOLE 40 MG/10 ML VIAL IV SCH (09:00)
[2018-06-04] MEDS ORDERED: ENOXAPARIN 40 MG/0.4 ML SYRINGE SQ SCH (09:00)
[2018-06-04] MEDS: ceFAZolin IN SWFI 2 GM/20 ML SYRINGE IVP SCH (09:17)
[2018-06-04] MEDS: ALBUTEROL NEBULIZED 2.5 MG/3 ML INHALATION SCH ×2 (09:19→11:40)
--- NOTE | 2018-06-04 11:21 | P.PN ---
Subjective Progress Note Date: 06/04/18 Principal diagnosis: GERD Patient doing well today. Minimal discomfort. Tolerating liquids. Apparently the upper GI today show no leak however they were not able to visualize the contrast exiting the stomach. She was going to go back down at noon for repeat images. She would like to go home today. Objective - Vital Signs Vital signs: Vital Signs Temp 98.2 F 06/04/18 04:37 Pulse 72 06/04/18 09:28 Resp 16 06/04/18 04:37 BP 98/59 06/04/18 04:37 Pulse Ox 95 06/04/18 04:37 Intake & Output 06/03/18 06/04/18 06/04/18 18:59 06:59 18:59 Intake Total 1400 300 Output Total 5 400 Balance 1395 -100 Weight 95.254 kg 95.254 kg Intake: IV 1400 Oral 300 Output: Urine 400 Estimated Blood Loss 5 Other: Voiding Method Toilet Toilet - Exam Abdomen: Soft, nondistended, incisions clean and dry, minimal tenderness - Labs CBC & Chem 7: 06/04/18 05:33 06/04/18 05:33 Labs: Abnormal Lab Results - Last 24 Hours (Table) 06/04/18 06/04/18 Range/Units 05:33 05:33 Neutrophils # 7.9 H (1.3-7.7) k/uL Chloride 110 H (98-107) mmol/L Carbon Dioxide 21 L (22-30) mmol/L Assessment and Plan (1) Gastroesophageal reflux disease Narrative/Plan: Patient doing well at this time. Await final upper GI. Anticipate discharge following that. Current Visit: Yes Status: Acute Code(s): K21.9 - GASTRO-ESOPHAGEAL REFLUX DISEASE WITHOUT ESOPHAGITIS SNOMED Code(s): 534831181
--- NOTE | 2018-06-04 12:23 | FL ---
EXAMINATION TYPE: FL esophagus cervic/pharynx DATE OF EXAM ORDERED: 06/04/2018 12:13 PM HISTORY: Fundoplication. COMPARISON: None. FINDINGS: The patient drank contrast with ease. The stomach is dilated and full of fluid as the breanne ent had been drinking liquids. There was delayed and exiting of the stomach. There is no evidence of extravasation. There is no evidence of free air. IMPRESSION: 1. STATUS POST MANUEL FUNDOPLICATION. 2. MODERATELY DILATED STOMACH. 3. WE HAVE NOT IDENTIFIED THE LIGAMENT OF TREITZ.
[2018-06-04 14:40] VITALS: BP 101/63; PULSE 93; TEMP 97.9
== END 2018-06-04 14:30 | disposition home or self-care (01) | DRG 328 ==
LOC: 2ORMAIN 12:36 → 6PED 16:38
PROVIDERS: ADMIT Surgery Plastic and Reconstructive Surgery; ATTEND Surgery Plastic and Reconstructive Surgery
PROC: 8E0W4CZ Robotic Assisted Procedure of Trunk Region, Percutaneous Endoscopic Approach (ICD-10-PCS; 2018-06-03)
PROC: 0DJ08ZZ Inspection of Upper Intestinal Tract, Via Natural or Artificial Opening Endoscopic (ICD-10-PCS; 2018-06-03)
PROC: 0BUT4JZ Supplement Diaphragm with Synthetic Substitute, Percutaneous Endoscopic Approach (ICD-10-PCS; principal; 2018-06-03 13:50)
DX: K44.9 Diaphragmatic hernia without obstruction or gangrene (principal); K21.9 Gastro-esophageal reflux disease without esophagitis; G43.909 Migraine, unspecified, not intractable, without status migrainosus; J45.909 Unspecified asthma, uncomplicated; K22.4 Dyskinesia of esophagus; M19.90 Unspecified osteoarthritis, unspecified site; E66.9 Obesity, unspecified; Z68.31 Body mass index [BMI] 31.0-31.9, adult; Z87.442 Personal history of urinary calculi; Z87.891 Personal history of nicotine dependence; Z90.49 Acquired absence of other specified parts of digestive tract
CPT/HCPCS: 74210; 80051; 81025; 82310; 82565; 83735; 84100; 84520; 85025; 94640

== ENCOUNTER → 2018-12-10 | Outpatient (CLI) | payer OTHER ==
--- NOTE | 2018-12-12 00:24 | MR ---
EXAMINATION TYPE: MR brain wo/w con DATE OF EXAM: 12/10/2018 COMPARISON: NONE HISTORY: 48-year-old female Headache TECHNIQUE: Multiplanar, multisequence images of the brain and brainstem were acquired before and aft er administration of 9 mL IV Gadavist. Diffusion weighted imaging is performed. FINDINGS: No evidence for acute infarction, hemorrhage, mass, mass effect, midline shift, herniation, effacemen t of basal cisterns, or extra-axial fluid collection. The ventricles and sulci are age-appropriate. Major intracranial flow voids are intact. T2/FLAIR weighted sequences show no white matter signal abnormality. Midline structures demonstrate normal morphology. The craniocervical junction is normal. Post contrast images demonstrate no evidence of pathologic enhancement. Dural venous sinuses are pat ent. Globes are distorted from artifacts. There may be trace mucosal thickening in the ethmoid air cells. IMPRESSION: Unremarkable MRI brain. No enhancing lesion seen.
== END | disposition home or self-care (01) ==
LOC: RADMRIMAIN 13:58
PROVIDERS: ATTEND Psychiatry & Neurology Neurology
DX: R51 Headache (principal)
CPT/HCPCS: 70553; A9585

== ENCOUNTER 2020-05-06 21:56 | Emergency (ER) | payer OTHER ==
[2020-05-06 22:08] VITALS: TEMP 98.3
[2020-05-06 22:45] LABS: Appearance,Urine Clear (Clear); Basophils # (A) 0.1 k/uL (0-0.2); Basophils % (A) 1 %; Bilirubin,Urine Negative (Negative); Blood,Urine Negative (Negative); Color,Urine Light Yellow; Eosinophils # (A) 0.2 k/uL (0-0.7); Eosinophils % (A) 2 %; Glucose,Urine (UA) Negative (Negative); HCT 40.4 % (34.0-46.0); HGB 13.1 gm/dL (11.4-16.0); Ketones,Urine Negative (Negative); Leukocyte Esterase,Urine Negative (Negative); Lymphocytes # (A) 4.3 k/uL (1.0-4.8); Lymphocytes % (A) 43 %; MCH 30.4 pg (25.0-35.0); MCHC 32.3 g/dL (31.0-37.0); MCV 93.9 fL (80.0-100.0); Mean Platelet Volume 8.2; Monocytes # (A) 0.5 k/uL (0-1.0); Monocytes % (A) 5 %; Neutrophils # (A) 4.7 k/uL (1.3-7.7); Neutrophils % (A) 47 %; Nitrite,Urine Negative (Negative); PH, Urine 7.5 (5.0-8.0); Platelet Count 286 k/uL (150-450); Protein,Urine Negative (Negative); RDW 13.1 % (11.5-15.5); Specific Gravity,Urine 1.004 (1.001-1.035); Urobilinogen,Urine <2.0 mg/dL (<2.0)
[2020-05-06 22:53] LABS: ALT 12 U/L (4-34); AST 16 U/L (14-36); African American GFR (CKD) >90 (>60 ml/min/1.73 sqM); Albumin 3.9 g/dL (3.5-5.0); Alkaline Phosphatase 77 U/L (38-126); Amylase 67 U/L (30-110); Anion Gap 7 mmol/L; Blood Urea Nitrogen 13 mg/dL (7-17); Calcium 9.3 mg/dL (8.4-10.2); Carbon Dioxide 20 mmol/L (22-30); Chloride 111 mmol/L (98-107); Glucose 99 mg/dL (74-99); Lipase 184 U/L (23-300); Non-African American GFR(CKD) >90 (>60 ml/min/1.73 sqM); Potassium 4.1 mmol/L (3.5-5.1); Sodium 138 mmol/L (137-145); Total Bilirubin 0.4 mg/dL (0.2-1.3); Total Protein 6.9 g/dL (6.3-8.2)
--- NOTE | 2020-05-06 23:36 | ED ---
Abdominal Pain HPI - General Chief Complaint: Abdominal Pain Stated Complaint: Abd Pain Time Seen by Provider: 05/06/20 22:15 Source: patient Mode of arrival: wheelchair Limitations: no limitations - History of Present Illness Initial Comments: 50-year-old female presenting for right lower quadrant pain x 1 hour prior to arrival. Patient states that 1 hour prior to arrival she has had onset of right lower quadrant pain. Patient denies any nausea vomiting diarrhea fevers lack of appetite denies any pain prior denies any upper abdominal pain or chest pain. Patient states she's history of previous cholecystectomy as well as hiatal hernia repair she states her surgeon is Dr. Villegas patient states that this does not feel pelvic in nature. Patient denies any vaginal bleeding discharge or concern for sexually transmitted diseases. She denies urinary symptoms admits to history of kidney stones but states this does not feel similar in characteristic. - Related Data Home Medications Medication Instructions Recorded Confirmed Butalb/Acetaminophen/Caffeine 1 - 2 cap PO Q4HR PRN 12/30/17 05/06/20 [Fioricet 50-300-40 mg Capsule] Esomeprazole Magnesium [NexIUM 20 mg PO DAILY 12/30/17 05/06/20 24Hr] Meloxicam [Mobic] 7.5 mg PO DAILY 05/06/20 05/06/20 Topiramate [Topamax] 50 mg PO DAILY 05/06/20 05/06/20 Allergies Allergy/AdvReac Type Severity Reaction Status Date / Time No Known Allergies Allergy Verified 05/06/20 23:24 Review of Systems ROS Statement: Those systems with pertinent positive or pertinent negative responses have been documented in the HPI. ROS Other: All systems not noted in ROS Statement are negative. Past Medical History Past Medical History: Asthma, GERD/Reflux, Osteoarthritis (OA) Additional Past Medical History / Comment(s): kidney stones History of Any Multi-Drug Resistant Organisms: None Reported Past Surgical History: Cholecystectomy, Hernia Repair, Tonsillectomy Additional Past Surgical History / Comment(s): ovarian cyst Past Anesthesia/Blood Transfusion Reactions: No Reported Reaction Past Psychological History: No Psychological Hx Reported Smoking Status: Former smoker Past Alcohol Use History: Rare Past Drug Use History: None Reported - Past Family History Mother Family Medical History: No Reported History General Exam - General Exam Comments Initial Comments: General: The patient is awake and alert, in no distress Eye: +3 mm pupils are equal, round and reactive to light, extra-ocular movements are intact. No nystagmus. There is normal conjunctiva bilaterally. No signs of icterus. Ears, nose, mouth and throat: There are moist mucous membranes and no oral lesions. Neck: The neck is supple, there is no tenderness or JVD. Cardiovascular: There is a regular rate and rhythm. No murmur, rub or gallop is appreciated. Respiratory: Lungs are clear to auscultation, respirations are non-labored, breath sounds are equal. No wheezes, stridor, rales, or rhonchi. Gastrointestinal: Soft, non-distended, RLQ tenderness to palpation, felt to be moderate, abdomen without masses or organomegaly noted. There is no rebound or guarding present. Musculoskeletal: Normal ROM, no tenderness. Strength 5/5. Sensation intact. Radial pulses equal bilaterally 2+. Neurological: A&O x 3. CN II-XII intact grossly, There are no obvious motor or sensory deficits. Coordination appears grossly intact. Speech is normal. Skin: Skin is warm and dry and no rashes or lesions are noted. Psychiatric: Cooperative, appropriate mood & affect, normal judgment. Limitations: no limitations Course Vital Signs 05/06/20 05/07/20 22:02 01:24 Temperature 98.3 F Pulse Rate 84 63 Respiratory 16 18 Rate Blood Pressure 116/81 116/77 O2 Sat by Pulse 99 99 Oximetry Medical Decision Making - Medical Decision Making labs stable. CT (-) for appendicitis however there are findings suggestive possible recently ruptured right ovarian cyst. Ultrasound negative for torsion. Hemorrhagic cyst is demonstrated. Patient's pain has improved she appears nontoxic. Stable at this time feel she is stable for discharge with outpatient [employer] follow-up patient is agreeable to this care plan at discharge at this time. As is attending. - Lab Data Result diagrams: 05/06/20 22:36 05/06/20 22:36 Lab Results 05/06/20 05/06/20 05/06/20 Range/Units 22:36 22:36 22:36 WBC 10.0 (3.8-10.6) k/uL RBC 4.30 (3.80-5.40) m/uL Hgb 13.1 (11.4-16.0) gm/dL Hct 40.4 (34.0-46.0) % MCV 93.9 (80.0-100.0) fL MCH 30.4 (25.0-35.0) pg MCHC 32.3 (31.0-37.0) g/dL RDW 13.1 (11.5-15.5) % Plt Count 286 (150-450) k/uL MPV 8.2 Neutrophils % 47 % Lymphocytes % 43 % Monocytes % 5 % Eosinophils % 2 % Basophils % 1 % Neutrophils # 4.7 (1.3-7.7) k/uL Lymphocytes # 4.3 (1.0-4.8) k/uL Monocytes # 0.5 (0-1.0) k/uL Eosinophils # 0.2 (0-0.7) k/uL Basophils # 0.1 (0-0.2) k/uL Sodium 138 (137-145) mmol/L Potassium 4.1 (3.5-5.1) mmol/L Chloride 111 H (98-107) mmol/L Carbon Dioxide 20 L (22-30) mmol/L Anion Gap 7 mmol/L BUN 13 (7-17) mg/dL Creatinine 0.61 (0.52-1.04) mg/dL Est GFR (CKD-EPI)AfAm >90 (>60 ml/min/1.73 sqM) Est GFR (CKD-EPI)NonAf >90 (>60 ml/min/1.73 sqM) Glucose 99 (74-99) mg/dL Calcium 9.3 (8.4-10.2) mg/dL Total Bilirubin 0.4 (0.2-1.3) mg/dL AST 16 (14-36) U/L ALT 12 (4-34) U/L Alkaline Phosphatase 77 (38-126) U/L Total Protein 6.9 (6.3-8.2) g/dL Albumin 3.9 (3.5-5.0) g/dL Amylase 67 (30-110) U/L Lipase 184 (23-300) U/L Urine Color Light Yellow Urine Appearance Clear (Clear) Urine pH 7.5 (5.0-8.0) Ur Specific [place] 1.004 (1.001-1.035) Urine Protein Negative (Negative) Urine Glucose (UA) Negative (Negative) Urine Ketones Negative (Negative) Urine Blood Negative (Negative) Urine Nitrite Negative (Negative) Urine Bilirubin Negative (Negative) Urine Urobilinogen <2.0 (<2.0) mg/dL Ur Leukocyte Esterase Negative (Negative) Disposition Clinical Impression: Hemorrhagic cyst, Right ovarian cyst Disposition: HOME SELF-CARE Condition: Good Instructions (If sedation given, give patient instructions): Ovarian Cyst (ED), Ruptured Ovarian Cyst (ED) Additional Instructions: Please use medication as discussed. Please follow-up with family doctor in the next 2 days, follow-up with OBGYN for the ovarian cysts. Please return to emergency room if the symptoms increase or worsen or for any other concerns. Is patient prescribed a controlled substance at d/c from ED?: No Referrals: Thierry Mcintosh MD [Primary Care Provider] - 1-2 days Time of Disposition: 01:10
--- NOTE | 2020-05-06 23:46 | CT ---
EXAMINATION TYPE: CT abdomen pelvis w con DATE OF EXAM: 05/06/2020 COMPARISON: 01/30/2016 HISTORY: RLQ pain CT DLP: 1213.2 mGycm Automated exposure control for dose reduction was used. CONTRAST: Performed with IV Contrast, patient injected with 100 mL of Isovue 300. Lung bases are clear of infiltrate. There is no pleural effusion. There is small hiatal hernia. Heart size is normal. There is no pericardial effusion. There are clips from cholecystectomy. Liver spleen pancreas appear normal. Bile ducts are not dilated . There is no adrenal mass. Kidneys show satisfactory contrast opacification. There is no hydronephrosi s. Ureters are not dilated. There is no retroperitoneal adenopathy. There is IUD in good position in the uterine fundus. Uterus is anteverted. Bladder distends smoothly. There is 3 cm cyst on the right ovary. There is small amount of free fluid in the pelvis on the right side. Appendix is medial and ap pears normal. There is some retained fecal material in the rectum. Lumbar vertebra have normal alignment. Posterior elements are intact. There is no compression fractur e. Bony pelvis is intact. Hip joints are intact. IMPRESSION: Normal appendix. Right ovarian cyst. Tiny amount of fluid in the pelvis on the right side of uncertai n significance. Mild constipation.
[2020-05-06] MEDS ORDERED: MORPHINE SULFATE 2 MG/ML SYRINGE IVP STA (23:49)
--- NOTE | 2020-05-07 01:08 | US ---
EXAM: US Pelvis Transvaginal CLINICAL HISTORY: ITS.REASON US Reason: RLQ pain TECHNIQUE: Real-time transvaginal pelvic ultrasound with image documentation. Transvaginal imaging was used for better evaluation of the endometrium and adnexa. COMPARISON: CT abdomen and pelvis performed earlier. FINDINGS: Uterus/cervix: There is a 7 x 10 x 9 mm nabothian cyst noted in the cervix. The uterus measures 7.7 x 4.7 x 5.2 cm. The endometrial stripe is not well-defined with echogenic IUD noted centrally within the body and fundus of the uterus. No myometrial mass. Right ovary: There is a hypoechoic hemorrhagic cyst noted centrally within the right ovary measuring 3.2 x 2.9 x 3 cm. The right ovary measures 4.3 x 3.5 x 3.3 cm. Normal blood flow. Left ovary: There is a 1.3 cm dominant follicle in the left ovary. The left ovary measures 4.3 x 2.4 x 2.4 cm. Normal blood flow. Free fluid: Trace free fluid in the pelvic cul-de-sac and adjacent to the right adnexa noted. Bladder: Empty bladder which cannot be evaluated with this probe. IMPRESSION: 1. There is a hypoechoic hemorrhagic cyst noted centrally within the right ovary measuring 3.2 x 2.9 x 3 cm. 2. No evidence for ovarian torsion bilaterally. 3. The IUD is poorly defined but is suggested centrally in the uterus, as noted on the previous CT examination.
[2020-05-07] MEDS ORDERED: ACET/COD 300 MG/30 MG STARTER PACK 6 TAB BTL PO STA (01:12)
[2020-05-07 01:26] VITALS: BP 116/77; PULSE 63; RESP 18
== END 2020-05-07 01:33 | disposition home or self-care (01) ==
LOC: EC 21:56
DX: N83.201 Unspecified ovarian cyst, right side (principal); K21.9 Gastro-esophageal reflux disease without esophagitis; M19.90 Unspecified osteoarthritis, unspecified site; Z79.899 Other long term (current) drug therapy; Z79.1 Long term (current) use of non-steroidal anti-inflammatories (NSAID); Z90.49 Acquired absence of other specified parts of digestive tract; Z87.891 Personal history of nicotine dependence; Z87.442 Personal history of urinary calculi
CPT/HCPCS: 36415; 80053; 82150; 83690; 85025; 81003; 74177; 99284; 96374; Q9967; 76830; 93975

== ENCOUNTER → 2020-08-22 | Outpatient (CLI) | payer OTHER ==
--- NOTE | 2020-08-26 09:02 | MM ---
Reason for exam: screening (asymptomatic). Last mammogram was performed 2 years and 8 months ago. History: Patient had first child at age 35. Taking hormonal contraceptives for 6 months. Physical Findings: A clinical breast exam by your physician is recommended on an annual basis and results should be correlated with mammographic findings. MG 3D Screening Mammo W/Cad Bilateral CC and MLO view(s) were taken. Prior study comparison: December 07, 2017, bilateral MG work up mamm w CAD BILAT. November 24, 2017, bilateral MG screening mammo w CAD. September 18, 2016, bilateral MG 3d screening mammo w/cad. Finding: There are two typically benign equal density (isodense), obscured oval masses in the upper outer quadrant, posterior middle position of the right breast. New finding since December 07, 2017, November 24, 2017, and September 18, 2016. ASSESSMENT: Incomplete: need additional imaging evaluation, BI-RAD 0 RECOMMENDATION: Ultrasound of the right breast. [facility] will attempt to contact patient to return for ultrasound.
== END | disposition home or self-care (01) ==
LOC: RADMAMWWP 08:22
PROVIDERS: ATTEND Obstetrics & Gynecology
DX: Z12.31 Encounter for screening mammogram for malignant neoplasm of breast (principal)
CPT/HCPCS: 77063; 77067

== ENCOUNTER → 2020-09-03 | Outpatient (CLI) | payer OTHER ==
--- NOTE | 2020-09-03 09:23 | USB ---
Reason for exam: additional evaluation requested from abnormal screening. History: Patient had first child at age 35. Taking hormonal contraceptives for 6 months. Physical Findings: Nurse did not find any significant physical abnormalities on exam. US Breast Workup Limited RT Right limited breast ultrasound including focal area of concern, retroareolar and axilla demonstrates a 20 x 10 x 20mm oval, cystic lesion at 9 o'clock with mammographic correlate, a 18 x 10 x 14mm oval, cystic lesion at 11 o'clock and a 7 x 5 x 7mm oval, mixed lesion at 9 o'clock, cyst with thick debris versus internal nodularity, 6 month follow up recommended. Scanned 9-12 o'clock. These results were verbally communicated with the patient and result sheet given to the patient on 09/03/20. ASSESSMENT: Probably benign, BI-RAD 3 RECOMMENDATION: Follow-up diagnostic mammogram and ultrasound of the right breast in 6 months.
== END | disposition home or self-care (01) ==
LOC: RADUSWWP 07:36
PROVIDERS: ATTEND Obstetrics & Gynecology
DX: N60.01 Solitary cyst of right breast (principal)

== ENCOUNTER → 2021-03-04 | Outpatient (CLI) | payer OTHER ==
--- NOTE | 2021-03-05 07:12 | US ---
EXAMINATION TYPE: US thyroid st tissue head/neck DATE OF EXAM: 03/04/2021 COMPARISON: US dated 10/01/2017 CLINICAL HISTORY: E04.2 Nontoxic multinodular goiter. GLAND SIZE: Right Lobe: 5.7 x 2.0 x 1.6 cm Overall Parenchyma: heterogenous Left Lobe: 5.1 x 1.7 x 2.1 cm Overall Parenchyma: homogeneous Isthmus Thickness: 0.4 cm NODULES RIGHT: # of nodules measured on right: 2 1. 0.9 X 0.9 x 0.9 cm, lower mid, solid or almost completely solid, hypoechoic nodule, which is wid er than tall, with smooth margins, without echogenic foci. Prior size: no prior 2. 0.9 X 0.7 x 0.7 cm, lower mid, solid or almost completely solid, hypoechoic nodule, which is wid er than tall, with smooth margins, without echogenic foci. Prior size: no prior LEFT: # of nodules measured on left: 2 1. 1.0 X 0.5 x 0.8 cm, upper mid, solid or almost completely solid, hypoechoic nodule, which is wid er than tall, with smooth margins, without echogenic foci. Prior size: 1.0 x 0.5 x 0.8 cm 2. 1.4 X 0.6 x 1.0 cm, lower medial, solid or almost completely solid, hypoechoic nodule, which is wider than tall, with smooth margins, without echogenic foci. Prior size: 1.3 x 0.6 x 0.8 cm ISTHMUS: # of nodules measured in the isthmus: 0 Bilateral neck scanned, no evidence of lymphadenopathy. IMPRESSION: Nonspecific thyroid nodularity. Stable nodularity left thyroid lobe.
== END | disposition home or self-care (01) ==
LOC: RADUSWWP 16:36
PROVIDERS: ATTEND Family Medicine
DX: E04.2 Nontoxic multinodular goiter (principal)
CPT/HCPCS: 76536

== ENCOUNTER → 2021-08-05 | Outpatient (CLI) | payer OTHER ==
--- NOTE | 2021-08-05 12:02 | MM ---
Reason for exam: follow-up at short interval from prior study. Last mammogram was performed 11 months ago. History: Patient had first child at age 35. Taking hormonal contraceptives for 6 months. Physical Findings: A clinical breast exam by your physician is recommended on an annual basis and results should be correlated with mammographic findings. MG 3D Diag Mammo W/Cad RT CC and MLO view(s) were taken of the right breast. Prior study comparison: August 22, 2020, bilateral MG 3d screening mammo w/cad. December 07, 2017, bilateral MG work up mamm w CAD BILAT. The breast tissue is heterogeneously dense. This may lower the sensitivity of mammography. There is persistent nodularity in the right breast. This finding is increased in size when compared with previous exams. ASSESSMENT: Incomplete: need additional imaging evaluation, BI-RAD 0 RECOMMENDATION: Ultrasound of the right breast. DAWIT
--- NOTE | 2021-08-05 12:06 | USB ---
Reason for exam: additional evaluation requested from abnormal screening. History: Patient had first child at age 35. Taking hormonal contraceptives for 6 months. US Breast Limited RT Technologist: Dedra Mcdaniels Right limited breast ultrasound including focal area of concern, retroareolar and axilla demonstrates a 1.6 x 1.5 x 1.1cm round, cystic lesion at 9 o'clock, 2cm from nipple simple cyst, stable, a 0.7 x 0.6 x 0.7cm round, cystic lesion, internal echoes at 9 o'clock, 1cm from nipple probable debris filled cysts, stable, a 0.6 x 0.7 x 0.5cm round, cystic lesion, internal echoes at 9 o'clock, 2cm from nipple, probable debris filled cyst, stable and a 2.3 x 2.2 x 1.3cm cystic lesion at 11 o'clock, 5cm from nipple, thin walled cyst increased in size from prior ultrasound with adjacent smaller cysts, stable. ASSESSMENT: Benign, BI-RAD 2 RECOMMENDATION: Follow-up diagnostic mammogram of both breasts in 1 month. Back on schedule.
== END | disposition home or self-care (01) ==
LOC: RADMAMWWP 10:43
PROVIDERS: ATTEND Family Medicine
DX: R92.8 Other abnormal and inconclusive findings on diagnostic imaging of breast (principal)
CPT/HCPCS: 77061; 77065

== ENCOUNTER 2021-09-13 12:36 | Observation (INO) | payer OTHER ==
[2021-09-13] MEDS ORDERED: SODIUM CHLORIDE 0.9% 1,000 ML IV STA (12:59)
[2021-09-13] MEDS ORDERED: ONDANSETRON 4 MG/2 ML VIAL IVP STA (12:59)
[2021-09-13] MEDS ORDERED: IOPAMIDOL CONTRAST (ORAL USE) VIAL PO PRN (12:59)
[2021-09-13] MEDS ORDERED: HYDROmorphone 1 MG/ML 1 ML SYRINGE IVP STA (12:59)
[2021-09-13] MEDS ORDERED: FAMOTIDINE 20 MG/2 ML VIAL IV STA (13:00)
--- NOTE | 2021-09-13 13:06 | ED ---
General Adult HPI - General Chief complaint: Abdominal Pain Stated complaint: r sided abd pain Time Seen by Provider: 09/13/21 12:52 Source: patient, RN notes reviewed Mode of arrival: ambulatory Limitations: no limitations - History of Present Illness Initial comments: Patient is a pleasant 51-year-old female presenting to the emergency Department with right-sided abdominal discomfort. Onset of symptoms was a week ago. Symptoms worsened the past 2 days. Discomfort feels sharp more right upper abdomen and through to the back. Patient has nausea but no vomiting. Patient is having occasional bloody stools, approximately one per day. Patient does have history of previous cholecystectomy as well as hiatal hernia surgery 2 years ago. No fevers. Discomfort is positional. - Related Data Home Medications Medication Instructions Recorded Confirmed Butalb/Acetaminophen/Caffeine 1 - 2 cap PO Q4HR PRN 12/30/17 05/06/20 [Fioricet 50-300-40 mg Capsule] Esomeprazole Magnesium [NexIUM 20 mg PO DAILY 12/30/17 05/06/20 24Hr] Meloxicam [Mobic] 7.5 mg PO DAILY 05/06/20 05/06/20 Topiramate [Topamax] 50 mg PO DAILY 05/06/20 05/06/20 Allergies Allergy/AdvReac Type Severity Reaction Status Date / Time No Known Allergies Allergy Verified 09/13/21 12:42 Review of Systems ROS Statement: Those systems with pertinent positive or pertinent negative responses have been documented in the HPI. ROS Other: All systems not noted in ROS Statement are negative. Constitutional: Denies: fever Eyes: Denies: eye pain Respiratory: Denies: cough Cardiovascular: Denies: chest pain Endocrine: Denies: fatigue Gastrointestinal: Reports: as per HPI, abdominal pain, nausea, hematochezia. Denies: vomiting Genitourinary: Denies: dysuria Musculoskeletal: Reports: as per HPI, back pain Skin: Denies: rash Neurological: Denies: weakness Past Medical History Past Medical History: Asthma, GERD/Reflux, Osteoarthritis (OA) Additional Past Medical History / Comment(s): kidney stones History of Any Multi-Drug Resistant Organisms: None Reported Past Surgical History: Cholecystectomy, Hernia Repair, Tonsillectomy Additional Past Surgical History / Comment(s): ovarian cyst Past Anesthesia/Blood Transfusion Reactions: No Reported Reaction Past Psychological History: No Psychological Hx Reported Smoking Status: Former smoker Past Alcohol Use History: Rare Past Drug Use History: None Reported - Past Family History Mother Family Medical History: No Reported History General Exam Limitations: no limitations General appearance: alert, in no apparent distress Head exam: Present: normocephalic Eye exam: Present: normal appearance Neck exam: Present: normal inspection Respiratory exam: Present: normal lung sounds bilaterally Cardiovascular Exam: Present: regular rate, normal rhythm Expanded Peripheral pulses: 2+: Posterior Tibialis (R), Posterior Tibialis (L) GI/Abdominal exam: Present: soft, tenderness (Moderate right upper quadrant tenderness.). Absent: distended, guarding, rebound, rigid Extremities exam: Present: normal inspection Back exam: Present: other (Patient states mild discomfort below right CVA) Neurological exam: Present: alert Psychiatric exam: Present: normal affect, normal mood Skin exam: Present: normal color Course Vital Signs 09/13/21 12:40 Temperature 98.6 F Pulse Rate 78 Respiratory 20 Rate Blood Pressure 131/62 O2 Sat by Pulse 98 Oximetry Medical Decision Making - Medical Decision Making Patient reevaluated and resting comfortably in bed. Patient states no improvement with medications. Patient updated on results and plan. Case discussed with Dr. arana, who will admit, Dr. Mcintosh. Consult with Dr. Villegas who patient has previously seen. - Lab Data Result diagrams: 09/13/21 13:16 09/13/21 13:16 Lab Results 09/13/21 09/13/21 09/13/21 Range/Units 13:16 13:16 13:16 WBC 7.6 (3.8-10.6) k/uL RBC 4.27 (3.80-5.40) m/uL Hgb 13.3 (11.4-16.0) gm/dL Hct 41.0 (34.0-46.0) % MCV 96.1 (80.0-100.0) fL MCH 31.1 (25.0-35.0) pg MCHC 32.4 (31.0-37.0) g/dL RDW 13.3 (11.5-15.5) % Plt Count 292 (150-450) k/uL MPV 8.2 Neutrophils % 54 % Lymphocytes % 36 % Monocytes % 5 % Eosinophils % 2 % Basophils % 1 % Neutrophils # 4.1 (1.3-7.7) k/uL Lymphocytes # 2.8 (1.0-4.8) k/uL Monocytes # 0.3 (0-1.0) k/uL Eosinophils # 0.1 (0-0.7) k/uL Basophils # 0.1 (0-0.2) k/uL PT 10.6 (9.0-12.0) sec INR 1.0 (<1.2) APTT 23.9 (22.0-30.0) sec Sodium (137-145) mmol/L Potassium (3.5-5.1) mmol/L Chloride (98-107) mmol/L Carbon Dioxide (22-30) mmol/L Anion Gap mmol/L BUN (7-17) mg/dL Creatinine (0.52-1.04) mg/dL Est GFR (CKD-EPI)AfAm (>60 ml/min/1.73 sqM) Est GFR (CKD-EPI)NonAf (>60 ml/min/1.73 sqM) Glucose (74-99) mg/dL Calcium (8.4-10.2) mg/dL Total Bilirubin (0.2-1.3) mg/dL AST (14-36) U/L ALT (4-34) U/L Alkaline Phosphatase (38-126) U/L Troponin I (0.000-0.034) ng/mL Total Protein (6.3-8.2) g/dL Albumin (3.5-5.0) g/dL Amylase (30-110) U/L Lipase (23-300) U/L Urine Color Colorless Urine Appearance Clear (Clear) Urine pH 6.5 (5.0-8.0) Ur Specific [place] 1.011 (1.001-1.035) Urine Protein Negative (Negative) Urine Glucose (UA) Negative (Negative) Urine Ketones Negative (Negative) Urine Blood Negative (Negative) Urine Nitrite Negative (Negative) Urine Bilirubin Negative (Negative) Urine Urobilinogen <2.0 (<2.0) mg/dL Ur Leukocyte Esterase Negative (Negative) 09/13/21 09/13/21 Range/Units 13:16 13:16 WBC (3.8-10.6) k/uL RBC (3.80-5.40) m/uL Hgb (11.4-16.0) gm/dL Hct (34.0-46.0) % MCV (80.0-100.0) fL MCH (25.0-35.0) pg MCHC (31.0-37.0) g/dL RDW (11.5-15.5) % Plt Count (150-450) k/uL MPV Neutrophils % % Lymphocytes % % Monocytes % % Eosinophils % % Basophils % % Neutrophils # (1.3-7.7) k/uL Lymphocytes # (1.0-4.8) k/uL Monocytes # (0-1.0) k/uL Eosinophils # (0-0.7) k/uL Basophils # (0-0.2) k/uL PT (9.0-12.0) sec INR (<1.2) APTT (22.0-30.0) sec Sodium 138 (137-145) mmol/L Potassium 4.0 (3.5-5.1) mmol/L Chloride 109 H (98-107) mmol/L Carbon Dioxide 23 (22-30) mmol/L Anion Gap 6 mmol/L BUN 9 (7-17) mg/dL Creatinine 0.54 (0.52-1.04) mg/dL Est GFR (CKD-EPI)AfAm >90 (>60 ml/min/1.73 sqM) Est GFR (CKD-EPI)NonAf >90 (>60 ml/min/1.73 sqM) Glucose 87 (74-99) mg/dL Calcium 8.9 (8.4-10.2) mg/dL Total Bilirubin 1.0 (0.2-1.3) mg/dL AST 18 (14-36) U/L ALT 14 (4-34) U/L Alkaline Phosphatase 75 (38-126) U/L Troponin I <0.012 (0.000-0.034) ng/mL Total Protein 7.0 (6.3-8.2) g/dL Albumin 3.7 (3.5-5.0) g/dL Amylase 50 (30-110) U/L Lipase 61 (23-300) U/L Urine Color Urine Appearance (Clear) Urine pH (5.0-8.0) Ur Specific [place] (1.001-1.035) Urine Protein (Negative) Urine Glucose (UA) (Negative) Urine Ketones (Negative) Urine Blood (Negative) Urine Nitrite (Negative) Urine Bilirubin (Negative) Urine Urobilinogen (<2.0) mg/dL Ur Leukocyte Esterase (Negative) - Radiology Data Radiology results: report reviewed (Computed tomography scan of abdomen and pelvis reveals no acute process) Disposition Clinical Impression: Abdominal pain, Lower GI hemorrhage Disposition: ADMITTED IP TO THIS HOSP Is patient prescribed a controlled substance at d/c from ED?: No Referrals: Thierry Mcintosh MD [Primary Care Provider] - 1-2 days Time of Disposition: 15:07
[2021-09-13 13:25] LABS: Basophils # (A) 0.1 k/uL (0-0.2); Basophils % (A) 1 %; Eosinophils # (A) 0.1 k/uL (0-0.7); Eosinophils % (A) 2 %; HGB 13.3 gm/dL (11.4-16.0); Lymphocytes # (A) 2.8 k/uL (1.0-4.8); Lymphocytes % (A) 36 %; MCH 31.1 pg (25.0-35.0); MCHC 32.4 g/dL (31.0-37.0); MCV 96.1 fL (80.0-100.0); Mean Platelet Volume 8.2; Monocytes # (A) 0.3 k/uL (0-1.0); Monocytes % (A) 5 %; Neutrophils # (A) 4.1 k/uL (1.3-7.7); Neutrophils % (A) 54 %; Platelet Count 292 k/uL (150-450); RBC 4.27 m/uL (3.80-5.40); RDW 13.3 % (11.5-15.5); WBC 7.6 k/uL (3.8-10.6)
[2021-09-13 13:35] LABS: ALT 14 U/L (4-34); AST 18 U/L (14-36); African American GFR (CKD) >90 (>60 ml/min/1.73 sqM); Albumin 3.7 g/dL (3.5-5.0); Alkaline Phosphatase 75 U/L (38-126); Amylase 50 U/L (30-110); Anion Gap 6 mmol/L; Blood Urea Nitrogen 9 mg/dL (7-17); Calcium 8.9 mg/dL (8.4-10.2); Carbon Dioxide 23 mmol/L (22-30); Chloride 109 mmol/L (98-107); Glucose 87 mg/dL (74-99); Lipase 61 U/L (23-300); Non-African American GFR(CKD) >90 (>60 ml/min/1.73 sqM); Partial Thromboplastin Time 23.9 sec (22.0-30.0); Prothrombin Time 10.6 sec (9.0-12.0); Sodium 138 mmol/L (137-145)
[2021-09-13 14:07] LABS: Appearance,Urine Clear (Clear); Bilirubin,Urine Negative (Negative); Blood,Urine Negative (Negative); Color,Urine Colorless; Glucose,Urine (UA) Negative (Negative); Ketones,Urine Negative (Negative); Leukocyte Esterase,Urine Negative (Negative); Nitrite,Urine Negative (Negative); PH, Urine 6.5 (5.0-8.0); Protein,Urine Negative (Negative); Specific Gravity,Urine 1.011 (1.001-1.035); Urobilinogen,Urine <2.0 mg/dL (<2.0)
--- NOTE | 2021-09-13 14:10 | CT ---
EXAMINATION TYPE: CT abdomen pelvis w con DATE OF EXAM: 09/13/2021 COMPARISON: 05/06/2020 INDICATION: Rt flank pain DLP: 1408.8 mGycm, Automated exposure control for dose reduction was used. CONTRAST: 100 mL of Isovue 300. Study performed with Oral Contrast TECHNIQUE: Axial images were obtained from above the diaphragm to the pubic rami in the axial plane a t 5 mm thick sections. Reconstructed images are reviewed on the computer in the coronal plane. FINDINGS: Limited CT sections are obtained the lung bases. The lung bases are clear. CT ABDOMEN: Liver: Normal Spleen: Normal Pancreas: Normal Adrenal glands: The adrenal glands are normal. Gallbladder: Surgically absent Kidneys: No masses are evident. No hydronephrosis is present. No cysts are present. Delayed images were obtained through the kidneys, which remain unremarkable. Aorta: No acute changes Inferior vena cava: Normal. CT PELVIS: Loops of bowel within the abdomen and pelvis are normal. The study is with limited oral contrast limiting bowel evaluation. Note is made of a few diverticuli sigmoid colon. Appendix: Normal as visualized. Urinary bladder: Normal. Genitourinary structures: Uterus is normal. IUD is within the uterus. A 1.5 cm cyst is on the right o vary. There is a 2 cm cyst on left ovary. Osseous structures: No suspicious lytic or sclerotic lesions. IMPRESSIONS: 1. Bilateral ovarian cysts. This could be followed with ultrasound. 2. No suspicious acute changes to account for abdominal pain.
[2021-09-13] MEDS ORDERED: HYDROmorphone 1 MG/ML 1 ML SYRINGE IVP PRN (15:07)
[2021-09-13] MEDS ORDERED: NALOXONE 0.4 MG/ML 1 ML VIAL IV PRN (15:07)
[2021-09-13] MEDS ORDERED: ONDANSETRON 4 MG/2 ML VIAL IVP PRN (15:07)
[2021-09-13] MEDS ORDERED: PANTOPRAZOLE 40 MG/10 ML VIAL IV SCH (15:15)
[2021-09-13] MEDS: SODIUM CHLORIDE 0.9% 1,000 ML IV SCH (18:11)
[2021-09-13] MEDS: PANTOPRAZOLE 40 MG/10 ML VIAL IVP SCH (22:06)
--- NOTE | 2021-09-13 23:56 | P.HPIM ---
History of Present Illness H&P Date: 09/13/21 Chief Complaint: abdominal pain Patient is a 51-year-old female with a long history of asthma, GERD, diabetes, history of cholecystectomy and previous history of smoking presents to ER with complaints of abdominal pain. Patient states that she has been having right upper quadrant abdominal pain and radiating around to the back. Pain is associated nausea and no episodes of vomiting. Denies any hematemesis or melena. Patient also states that she has been having bright red blood per rectum for the past 1 week. Denies any diarrhea. No complaints of lower abdominal pain. No chest pain or shortness of breath. No fever. No cough or sputum production. Denies any recent illnesses. Patient did have history of cholecystectomy and also hiatal hernia. 2 years ago. Patient does take Celebrex for arthritis frequently. CT of the abdomen pelvis showed bilateral ovarian cysts. This could be followed with ultrasound. Patient still continues to Hicon for abdominal pain. Level of data showed WBC 7.6 hemoglobin 13.3 and platelets 292 Sodium 138 potassium 4.0 chloride 109 bicarb is 23 BUN 9 and creatinine 0.54 liver enzymes not elevated. Total bilirubin level is 1.0 troponin x1 negative and lipase level is 61 Urinalysis: Negative for infection. Review of Systems Constitutional: Patient denies any fever or chills . No generalized weakness or weight loss. Abdomen: Patient does complain of right upper quadrant abdominal pain associate with nausea. No vomiting. No hematemesis. Bright light blood per rectum. No diarrhea. Cardiovascular: Patient denies any chest pain or short of breath no palpitations. Respiratory: patient denied any cough or sputum production. No shortness of breath Neurologic: Patient denied any numbness or tingling headache. Musculoskeletal: Patient denies any complaints of joint swelling or deformity. Skin: Negative Psychiatric: Negative Endocrine: No heat or cold intolerance. No recent weight gain. Genitourinary: No dysuria or hematuria. All other 14 point ROS negative except the above Past Medical History Past Medical History: Asthma, GERD/Reflux, Osteoarthritis (OA) Additional Past Medical History / Comment(s): kidney stones History of Any Multi-Drug Resistant Organisms: None Reported Past Surgical History: Cholecystectomy, Hernia Repair, Tonsillectomy Additional Past Surgical History / Comment(s): ovarian cyst Past Anesthesia/Blood Transfusion Reactions: No Reported Reaction Past Psychological History: No Psychological Hx Reported Smoking Status: Former smoker Past Alcohol Use History: Rare Additional Past Alcohol Use History / Comment(s): quit smoking 2016, 1ppd for 30 yrs. Past Drug Use History: None Reported - Past Family History Mother Family Medical History: No Reported History Medications and Allergies Home Medications Medication Instructions Recorded Confirmed Type Esomeprazole Magnesium [NexIUM 20 mg PO DAILY 12/30/17 09/13/21 History 24Hr] Celecoxib [CeleBREX] 200 mg PO DAILY 09/13/21 09/13/21 History Cyanocobalamin (Vitamin B-12) 1,000 mcg PO DAILY 09/13/21 09/13/21 History [Vitamin B-12] Magnesium 300mg 1 tab PO DAILY 09/13/21 09/13/21 History Zinc Gluconate [Zinc] 100 mg PO DAILY 09/13/21 09/13/21 History Allergies Allergy/AdvReac Type Severity Reaction Status Date / Time No Known Allergies Allergy Verified 09/13/21 15:07 Physical Exam Vitals: Vital Signs Temp Pulse Pulse Resp BP BP Pulse Ox 09/13/21 20:00 87 18 09/13/21 15:45 98.1 F 87 18 131/66 100 09/13/21 15:00 78 18 128/78 99 09/13/21 12:40 98.6 F 78 20 131/62 98 Intake and Output 09/13/21 09/13/21 09/14/21 14:59 22:59 06:59 Other: Voiding Method Toilet # Voids 2 Weight 90.718 kg 90.718 kg PHYSICAL EXAMINATION: Patient is lying in the bed comfortably, no acute distress, awake alert and orie nted.. HEENT: Normocephalic. Neck is supple. Pupils reactive. Nostrils clear. Oral cavity is moist. Neck reveals no JVD, carotid bruits, or thyromegaly. CHEST EXAMINATION: Trachea is central. Symmetrical expansion. Lung hinojosa clear to auscultation and percussion. CARDIAC: Normal S1, S2 with no gallops. No murmurs ABDOMEN: Soft. Bowel sounds normal. Right upper quadrant tenderness. No organ omegaly. No abdominal bruits. Extremities: reveal no edema. No clubbing or cyanosis Neurologically awake, alert, oriented x3 with well-coordinated movements. No focal deficits noted Skin: No rash or skin lesions. Psychiatric: Cooperative. Nonsuicidal Musculoskeletal: No joint swelling or deformity. Normal range of motion. Results CBC & Chem 7: 09/13/21 13:16 09/13/21 13:16 Labs: Abnormal Lab Results - Last 24 Hours (Table) 09/13/21 Range/Units 13:16 Chloride 109 H (98-107) mmol/L Thrombosis Risk Factor Assmnt - DVT/VTE Prophylaxis DVT/VTE Prophylaxis: Mechanical Prophylaxis ordered - Choose All That Apply Any of the Below Risk Factors Present?: Yes Each Factor Represents 1 point: Age 41-60 years Other Risk Factors: No Thrombosis Risk Factor Assessment Total Risk Factor Score: 1 Thrombosis Risk Factor Assessment Level: Low Risk Assessment and Plan Assessment: Right upper quadrant pain. Patient does have history of cholecystectomy. LFTs are not elevated. Followed during hospital is also in consultation with daily use of Celebrex. Bright red blood per rectum/lower GI bleed History of cholecystectomy History of hiatal hernia repair Asthma not menstruation Previous history of smoking DVT prophylaxis with SCDs Plan: Patient will be continued on IV hydration and PPI IV twice daily. Monitor H&H and continue with pain medications and follow-up closely. Gastroenterology service was consulted. Current home medications. Discussed with the patient and her at bedside in detail. Time with Patient: Greater than 30
[2021-09-14] MEDS: SODIUM CHLORIDE 0.9% 1,000 ML IV SCH ×2 (06:11→19:52)
[2021-09-14] MEDS: PANTOPRAZOLE 40 MG/10 ML VIAL IVP SCH ×2 (09:04→20:26)
[2021-09-14] MEDS: CYANOCOBALAMIN 500 MCG TAB PO SCH (09:04)
[2021-09-14 09:11] LABS: Basophils # (A) 0.06 X 10*3/uL (0.00-0.10); Basophils % (A) 0.9 %; Eosinophils # (A) 0.13 X 10*3/uL (0.04-0.35); HCT 37.9 % (37.2-46.3); Immature Grans, Automated 0.3 %; Lymphocytes # (A) 2.47 X 10*3/uL (0.90-5.00); Lymphocytes % (A) 38.4 %; MCH 30.4 pg (27.0-32.0); MCHC 31.7 g/dL (32.0-37.0); MCV 95.9 fL (80.0-97.0); Mean Platelet Volume 11.4 fL (9.5-12.2); Monocytes # (A) 0.56 X 10*3/uL (0.20-1.00); Monocytes % (A) 8.7 %; NRBC Per 100 WBC 0 /100 WBCS (0.0-0.0); Neutrophils # (A) 3.19 X 10*3/uL (1.80-7.70); Neutrophils % (A) 49.7 %; Platelet Count 256 X 10*3/uL (140-440); RBC 3.95 X 10*6/uL (4.10-5.20); RDW 12.8 % (11.5-14.5); WBC 6.43 X 10*3/uL (4.50-10.00)
[2021-09-14] MEDS ORDERED: HYDROcodone/APAP 5-325MG 1 EACH TAB PO PRN (09:14)
[2021-09-14] MEDS ORDERED: HYDROcodone/APAP 5-325MG 1 EACH TAB PO STA (09:14)
[2021-09-14 09:36] LABS: African American GFR (CKD) 123.3 (60.0-200.0); Albumin 3.4 g/dL (3.8-4.9); Albumin/Globulin Ratio 1.53 (1.60-3.17); Anion Gap 6.5 mmol/L (10.00-18.00); BUN/Creat Ratio 14.22 Ratio (12.00-20.00); Blood Urea Nitrogen 8.3 mg/dL (9.0-27.0); Calcium 8.4 mg/dL (8.7-10.3); Carbon Dioxide 22.5 mmol/L (20.0-27.5); Globulin 2.2 g/dL (1.6-3.3); Non-African American GFR(CKD) 106.4 (60.0-200.0); Potassium 4.5 mmol/L (3.5-5.5); Total Bilirubin 0.8 mg/dL (0.30-1.20); Total Protein 5.5 g/dL (6.2-8.2)
--- NOTE | 2021-09-14 12:34 | XR ---
EXAMINATION TYPE: XR chest 1V DATE OF EXAM: 09/14/2021 COMPARISON: None INDICATION: Pain TECHNIQUE: Single frontal view of the chest is obtained. FINDINGS: The heart size is normal. The pulmonary vasculature is normal. The lungs are clear. IMPRESSION: 1. No acute pulmonary process.
--- NOTE | 2021-09-14 14:00 | P.GSCN ---
History of Present Illness Consult date: 09/14/21 History of present illness: REASON FOR CONSULTATION: Right upper quadrant abdominal pain HISTORY OF PRESENT ILLNESS: The patient is a 51 year old female who reports damir ing Celebrex and recently mobic for generalized osteoarthritis for over 3 months. She has had prior hiatal hernia repair. She also had cholecystectomy also previously performed. She reports epigastric abdominal pain is worse with eating at the right upper quadrant. She reports blood in stools and she is due for colonoscopy. Her pain has been worse for over 5 days. General surgery is consulted for abdominal pain. PAST MEDICAL HISTORY: See list and reviewed PAST SURGICAL HISTORY: See list and reviewed MEDICATIONS: See list and reviewed ALLERGIES: See list and reviewed SOCIAL HISTORY: See list and reviewed FAMILY HISTORY: See list and reviewed REVIEW OF ORGAN SYSTEMS: CONSTITUTIONAL: No fevers or chills. No recent weight loss. EYES: Denies any trouble with vision. No glasses. HEENT: No difficulties with hearing. No nosebleeds. No difficulty swallowing. RESPIRATORY: Has asthma. CARDIOVASCULAR: Denies any chest pain, palpitations, or recent heart attacks. GASTROINTESTINAL: Has gastroesophageal reflux disease. GENITOURINARY: Denies any blood in urine or increased urinary frequency. History of kidney stones. History of ovarian cyst. NEUROLOGICAL: Denies any numbness or tingling along the distal extremities. No seizure disorders or headaches. MUSCULOSKELETAL: Has back pain, stiffness or joint arthritis. SKIN: No current skin cancer. No rash. PSYCHIATRIC: Denies current depression or suicidal thoughts. ENDOCRINE: Denies current thyroid disorders. Denies any blood sugar glucose intolerance. HEME/LYMPHATIC: Denies any lumps and bumps around the neck. No recent deep venous thrombosis. ALLERGY/IMMUNOLOGY: No immunoglobulin therapy. No immune deficiencies. BREAST: Denies current breast lumps, pain or nipple discharge. PHYSICAL EXAM: VITALS: Reviewed CONSTITUTIONAL: Well developed and in no acute distress. EYES: Conjuctivae without sclera icterus. Extraocular movements grossly intact. HEAD, EARS, NOSE, THROAT: Moist buccal mucosa. Head is atraumatic, normocephalic. Hears conversational speech. No nasal drainage. NECK: Supple. No JV distention. No thyroidomegaly. RESPIRATORY: Non-labored respirations and equal bilateral excursions. No gross wheezes. CARDIOVASCULAR: Regular rate and rhythm. Extremities without moderate edema. Palpable 2+ radial pulses. ABDOMEN: Moderate tenderness epigastric and right upper quadrant abdominal pain. LYMPH: No neck lymphadenopathy. MUSCULOSKELETAL: Nail and fingers with good capillary refill. SKIN: Warm and well perfused with good skin turgor. NEUROLOGIC: Cranial nerves II through XII grossly intact. Sensation upper and extremities intact. No focal or lateralizing signs. PSYCH: Appropriate affect. Alert and oriented to person, place and time. Displays appropriate insight. CLINCAL LABS: Reviewed. WBC normal at 6.43. Hgb 12.0. Lipase normal. IMAGING: Independently reviewed CT of the abdomen and pelvis demonstrated prior cholecystectomy. No free air. Umbilical hernia fat containing. This is my independent interpretation. RADIOLOGY: Report reviewed with CT of the abdomen and pelvis with bilateral ovarian cyst. RECORDS: previous old records reviewed with hiatal hernia repair in 2019. Midline paraesophageal hiatal hernia 4 x 5 cm. Intraoperative upper endoscopy confirms complete closure of hiatal hernia from Hill grade 4 to Hill grade 1 ASSESSMENT: 1. Epigastric/right upper quadrant abdominal pain 2. Chronic NSAID use for gastro-duodenal ulcer PLAN: 1. Recommend EGD for gastro-duodenal ulcers as she is high risk with her NSAID use. 2. She reports blood in stools and she is due for colonoscopy. 3. Colonoscopy described following completion of EGD ADVANCE DIRECTIVE: Thank you for this kind consultation. Past Medical History Past Medical History: Asthma, GERD/Reflux, Osteoarthritis (OA) Additional Past Medical History / Comment(s): kidney stones History of Any Multi-Drug Resistant Organisms: None Reported Past Surgical History: Cholecystectomy, Hernia Repair, Tonsillectomy Additional Past Surgical History / Comment(s): ovarian cyst Past Anesthesia/Blood Transfusion Reactions: No Reported Reaction Past Psychological History: No Psychological Hx Reported Smoking Status: Former smoker Past Alcohol Use History: Rare Additional Past Alcohol Use History / Comment(s): quit smoking 2016, 1ppd for 30 yrs. Past Drug Use History: None Reported - Past Family History Mother Family Medical History: No Reported History Medications and Allergies Home Medications Medication Instructions Recorded Confirmed Type Esomeprazole Magnesium [NexIUM 20 mg PO DAILY 12/30/17 09/13/21 History 24Hr] Celecoxib [CeleBREX] 200 mg PO DAILY 09/13/21 09/13/21 History Cyanocobalamin (Vitamin B-12) 1,000 mcg PO DAILY 09/13/21 09/13/21 History [Vitamin B-12] Magnesium 300mg 1 tab PO DAILY 09/13/21 09/13/21 History Zinc Gluconate [Zinc] 100 mg PO DAILY 09/13/21 09/13/21 History Allergies Allergy/AdvReac Type Severity Reaction Status Date / Time No Known Allergies Allergy Verified 09/13/21 15:07 Surgical - Exam Vital Signs Temp Pulse Resp BP Pulse Ox 98.6 F 78 20 131/62 98 09/13/21 12:40 09/13/21 12:40 09/13/21 12:40 09/13/21 12:40 09/13/21 12:40 Results - Labs 09/14/21 05:36 09/14/21 05:36 Abnormal Lab Results - Last 24 Hours (Table) 09/14/21 09/14/21 Range/Units 05:36 05:36 RBC 3.95 L (4.10-5.20) X 10*6/uL MCHC 31.7 L (32.0-37.0) g/dL Anion Gap 6.50 L (10.00-18.00) mmol/L BUN 8.3 L (9.0-27.0) mg/dL Calcium 8.4 L (8.7-10.3) mg/dL Total Protein 5.5 L (6.2-8.2) g/dL Albumin 3.4 L (3.8-4.9) g/dL Albumin/Globulin Ratio 1.53 L (1.60-3.17) g/dL Diabetes panel 09/14/21 Range/Units 05:36 Sodium 138 (135-145) mmol/L Potassium 4.5 (3.5-5.5) mmol/L Chloride 109 (96-109) mmol/L Carbon Dioxide 22.5 (20.0-27.5) mmol/L BUN 8.3 L (9.0-27.0) mg/dL Creatinine 0.6 (0.6-1.5) mg/dL Glucose 81 (70-110) mg/dL Calcium 8.4 L (8.7-10.3) mg/dL AST 16 (13-35) U/L ALT 17 (8-44) U/L Alkaline Phosphatase 86 (41-126) U/L Total Protein 5.5 L (6.2-8.2) g/dL Albumin 3.4 L (3.8-4.9) g/dL Calcium panel 09/14/21 Range/Units 05:36 Calcium 8.4 L (8.7-10.3) mg/dL Albumin 3.4 L (3.8-4.9) g/dL Pituitary panel 09/14/21 Range/Units 05:36 Sodium 138 (135-145) mmol/L Potassium 4.5 (3.5-5.5) mmol/L Chloride 109 (96-109) mmol/L Carbon Dioxide 22.5 (20.0-27.5) mmol/L BUN 8.3 L (9.0-27.0) mg/dL Creatinine 0.6 (0.6-1.5) mg/dL Glucose 81 (70-110) mg/dL Calcium 8.4 L (8.7-10.3) mg/dL Adrenal panel 09/14/21 Range/Units 05:36 Sodium 138 (135-145) mmol/L Potassium 4.5 (3.5-5.5) mmol/L Chloride 109 (96-109) mmol/L Carbon Dioxide 22.5 (20.0-27.5) mmol/L BUN 8.3 L (9.0-27.0) mg/dL Creatinine 0.6 (0.6-1.5) mg/dL Glucose 81 (70-110) mg/dL Calcium 8.4 L (8.7-10.3) mg/dL Total Bilirubin 0.80 (0.30-1.20) mg/dL AST 16 (13-35) U/L ALT 17 (8-44) U/L Alkaline Phosphatase 86 (41-126) U/L Total Protein 5.5 L (6.2-8.2) g/dL Albumin 3.4 L (3.8-4.9) g/dL
[2021-09-14 20:17] VITALS: RESP 18
--- NOTE | 2021-09-14 21:24 | P.PN ---
Subjective Progress Note Date: 09/14/21 Patient is a 51-year-old female with a long history of asthma, GERD, diabetes, history of cholecystectomy and previous history of smoking presents to ER with complaints of abdominal pain. Patient states that she has been having right upper quadrant abdominal pain and radiating around to the back. Pain is associated nausea and no episodes of vomiting. Denies any hematemesis or melena. Patient also states that she has been having bright red blood per rectum for the past 1 week. Denies any diarrhea. No complaints of lower abdominal pain. No chest pain or shortness of breath. No fever. No cough or sputum production. Denies any recent illnesses. Patient did have history of cholecystectomy and also hiatal hernia. 2 years ago. Patient does take Celebrex for arthritis frequently. CT of the abdomen pelvis showed bilateral ovarian cysts. This could be followed with ultrasound. [facility] Level of data showed WBC 7.6 hemoglobin 13.3 and platelets 292 Sodium 138 potassium 4.0 chloride 109 bicarb is 23 BUN 9 and creatinine 0.54 liver enzymes not elevated. Total bilirubin level is 1.0 troponin x1 negative and lipase level is 61 Urinalysis: Negative for infection. 09/14/2021 Patient is currently resting in the bed comfortably. Still complains of right upper quadrant abdominal pain. No complaints of chest pain or shortness of breath. No further episodes of rectal bleed. Hemoglobin is fairly stable. Liver enzymes are not elevated and bilirubin level is 0.8. Due to pleuritic chest pain D-dimer was done which is not elevated at 0.37. Chest x-ray showed no acute pulmonary process. Possible duodenal ulcer is being considered. General surgery is on board. Laboratory test showed WBC 6.4 hemoglobin 12.0 and platelets 256 sodium 138 potassium 4.5 chloride 109 bicarb is 22.5 BUN 8.3 and creatinine 0.6. Patient is being continued on Protonix IV twice daily. Current medications reviewed. Objective - Vital Signs Vital signs: Vital Signs Temp 97.9 F 09/14/21 07:00 Pulse 62 09/14/21 07:00 Resp 14 09/14/21 07:00 BP 124/83 09/14/21 07:00 Pulse Ox 98 09/14/21 07:00 Intake & Output 04/30/22 05/01/22 05/01/22 18:59 06:59 18:59 Weight 90.718 kg Other: Voiding Method Toilet # Voids 2 - Exam PHYSICAL EXAMINATION: Patient is lying in the bed comfortably, no acute distress, awake alert and oriented.. HEENT: Normocephalic. Neck is supple. Pupils reactive. Nostrils clear. Oral cavity is moist. Neck reveals no JVD, carotid bruits, or thyromegaly. CHEST EXAMINATION: Trachea is central. Symmetrical expansion. Lung hinojosa clear to auscultation and percussion. CARDIAC: Normal S1, S2 with no gallops. No murmurs ABDOMEN: Soft. Bowel sounds normal. Right upper quadrant tenderness. No organomegaly. No abdominal bruits. Extremities: reveal no edema. No clubbing or cyanosis Neurologically awake, alert, oriented x3 with well-coordinated movements. No focal deficits noted Skin: No rash or skin lesions. Psychiatric: Cooperative. Nonsuicidal Musculoskeletal: No joint swelling or deformity. Normal range of motion. - Labs CBC & Chem 7: 09/14/21 05:36 09/14/21 05:36 Labs: Abnormal Lab Results - Last 24 Hours (Table) 09/13/21 09/14/21 09/14/21 Range/Units 13:16 05:36 05:36 RBC 3.95 L (4.10-5.20) X 10*6/uL MCHC 31.7 L (32.0-37.0) g/dL Chloride 109 H (98-107) mmol/L Anion Gap 6.50 L (10.00-18.00) mmol/L BUN 8.3 L (9.0-27.0) mg/dL Calcium 8.4 L (8.7-10.3) mg/dL Total Protein 5.5 L (6.2-8.2) g/dL Albumin 3.4 L (3.8-4.9) g/dL Albumin/Globulin Ratio 1.53 L (1.60-3.17) g/dL Assessment and Plan Assessment: Right upper quadrant pain. Patient does have history of cholecystectomy. LFTs are not elevated. Followed during hospital is also in consultation with daily use of Celebrex. Bright red blood per rectum/lower GI bleed History of cholecystectomy History of hiatal hernia repair Asthma not menstruation Previous history of smoking DVT prophylaxis with SCDs Plan: Patient will be continued on IV hydration and PPI IV twice daily. Monitor H&H and continue with pain medications and follow-up closely. Gen Surgery was consulted. Current home medications. Consider EGD and colonoscopy. Discussed with the patient and her at bedside in detail.
[2021-09-15] MEDS: PANTOPRAZOLE 40 MG/10 ML VIAL IVP SCH (07:14)
[2021-09-15] MEDS: SODIUM CHLORIDE 0.9% 1,000 ML IV SCH (07:15)
[2021-09-15] MEDS: CYANOCOBALAMIN 500 MCG TAB PO SCH (07:15)
[2021-09-15] MEDS ORDERED: PROPOFOL 10 MG/ML 20 ML VIAL IV ONE (08:24)
[2021-09-15] MEDS ORDERED: LIDOCAINE 2% INJ 20 MG/ML (2 ML VIAL) ONE (08:24)
[2021-09-15] MEDS ORDERED: IV FLUID CONTINUATION 1,000 ML IV ONE (08:27)
--- NOTE | 2021-09-15 08:34 | P.PCN ---
Date of Procedure: 09/15/21 Description of Procedure: PREOPERATIVE DIAGNOSIS: Acute gastrointestinal bleeding Rectal bleeding Right upper quadrant abdominal pain Gastroesophageal reflux disease Status post Mitch fundoplasty POSTOPERATIVE DIAGNOSIS: Acute gastrointestinal bleeding Rectal bleeding Right upper quadrant abdominal pain Gastroesophageal reflux disease Status post Mitch fundoplasty OPERATION: Esophagogastroduodenoscopy SURGEON: Nitza Duams MD ANESTHESIA: MAC. INDICATIONS: The patient is a 51-year-old female who presents with gastrointestinal bleeding. Benefits and risks of the procedure were described. Informed consent was obtained. DESCRIPTION: The patient was brought into the endoscopy suite and laid in the left lateral decubitus position. An Olympus gastroscope was passed along the posterior oropharynx down to the distal esophagus where the squamocolumnar junction was encountered at 40 cm from the incisors. The stomach was entered and no bile reflux was found. Additional findings are listed below. The first through third portion of the duodenum was examined and unremarkable. Retroflexion of the scope confirmed Hill grade 2 lower esophageal valve. The squamocolumnar junction demonstrated LA grade B erosive esophagitis. The stomach was desufflated. The patient tolerated the procedure well. FINDINGS: Squamocolumnar junction 40 cm from the incisors. Diaphragmatic hiatus at 41 cm. Hiatal hernia, 1 cm, sliding hiatal hernia Hill grade 2 lower esophageal valve. LA grade B erosive esophagitis. No active duodenitis. No stigmata of bleeding RECOMMENDATIONS: 1. Recommend lower endoscopy for gastrointestinal bleed
[2021-09-15 09:12] LABS: Basophils # (A) 0.04 X 10*3/uL (0.00-0.10); Basophils % (A) 0.6 %; Eosinophils # (A) 0.18 X 10*3/uL (0.04-0.35); Eosinophils % (A) 2.6 %; HCT 37.1 % (37.2-46.3); HGB 11.7 g/dL (12.0-15.0); Immature Grans, Automated 0.3 %; Lymphocytes # (A) 3.21 X 10*3/uL (0.90-5.00); Lymphocytes % (A) 45.9 %; MCH 30.8 pg (27.0-32.0); MCHC 31.5 g/dL (32.0-37.0); MCV 97.6 fL (80.0-97.0); Mean Platelet Volume 11.5 fL (9.5-12.2); Monocytes # (A) 0.56 X 10*3/uL (0.20-1.00); NRBC Per 100 WBC 0 /100 WBCS (0.0-0.0); Neutrophils # (A) 2.99 X 10*3/uL (1.80-7.70); Neutrophils % (A) 42.6 %; Platelet Count 240 X 10*3/uL (140-440); RDW 12.8 % (11.5-14.5)
[2021-09-15 09:31] LABS: African American GFR (CKD) 122.3 (60.0-200.0); Anion Gap 8.5 mmol/L (10.00-18.00); BUN/Creat Ratio 9.5 Ratio (12.00-20.00); Blood Urea Nitrogen 5.7 mg/dL (9.0-27.0); Calcium 8.3 mg/dL (8.7-10.3); Carbon Dioxide 21.5 mmol/L (20.0-27.5); Non-African American GFR(CKD) 105.5 (60.0-200.0); Potassium 4.1 mmol/L (3.5-5.5)
[2021-09-15 09:33] VITALS: TEMP 97.6
[2021-09-15 09:36] VITALS: BP 130/85; PULSE 67
--- NOTE | 2021-09-15 21:33 | P.DS ---
Providers Date of admission: 09/13/21 15:12 Attending physician: Lopez Marquez MD Consults: 09/13/21 15:07 Consult Physician Urgent Consulting Provider: Nitza Dumas Consult Reason/Comments: abp, lower gi hemorrhage Do you want consulting provider notified?: Yes Primary care physician: Thierry Mcintosh Hospital Course: Final Diagnosis Right upper quadrant pain s/p cholecystectomy. Bright red blood per rectum x 1 week status post EGD showing erosive espophagitis with no active duodenitis or bleeding. Daily use of celebrex for chronic arthritis History of cholecystectomy History of hiatal hernia repair Asthma, not in acute exacerbation Previous history of smoking DVT prophylaxis; SCD's Discharge Disposition Patient is discharged home and will proceed with outpatient colonoscopy on Thursday September 16, 2021. Hospital Course This is a pleasant 51 year old female who presents to the hospital with concerns for abdominal pain, right upper quadrant with radiation to the back. Denies hematemesis or melena. Patient also reports bright red blood per rectum which has been ongoing for the last week. There is no lower abdominal pain, dysuria. Medical history includes cholecystectomy 2 years ago, hiatal hernia, arthritis for which patient takes celebrex daily. Initial work up consists of CT abdomen pelvis which shows bilateral ovarian cysts. On admission WBC 7.6, hemoglobin 13.3, platelet count 292. Sodium 138 potassium 4.0 chloride 109 bicarb is 23 BUN 9 and creatinine 0.54 liver enzymes not elevated. Total bilirubin level is 1.0 troponin x1 negative and lipase level is 61 Urinalysis: Negative for infection. Chest xray: No acute cardiopulmonary process. Patient was given IV hydration, started on IV protonix 40 mg PO BID, and admitted to the hospital with consults placed to surgical services. Patient underwent EGD on 09/15/2021 which shows hiatal hernia, Hill grade 2 lower esophageal valve, LA grade B erosive esophagitis, no active duodenitis, no stigmata of bleeding. Surgical services recommended colonoscopy which is scheduled for Wednesday. Patient will be discharged home on protonix 40 mg PO twice a day and continue to hold celebrex. 09/15/2021 Patient is evaluated today status post EGD. Reports mild abdominal pain right upper quadrant which has improved somewhat. No further episodes of rectal bleeding, states though she has not had a bowel movement since Wednesday. Patient would like to go home and proceed with colonoscopy outpatient. Continue on protonix twice a day, hold celebrex. Bowel prep has been sent to pharmacy by surgical services. Hemoglobin today 11.7. Patient denying chest pain, chest pressure, cough or shortness of breath. Denies hematuria, dysuria. Lungs are clear, S1 S2 auscultated, normoactive bowel sounds, no tenderness on palpation. Focal neurological exam is negative. Vital signs stable, afebrile, heart rate 67, blood pressure 130/85, 99% on room air. Please see medication reconciliation for a list off current medications. Thank you for allowing us to participate in the care of this patient. The impression and plan of care has been dictated by Elizabeth Gordon, Nurse Practitioner as directed. Dr. Judson MD I have performed a history and physical examination and medical decision making of this patient, discussed the same with the dictator, and agree with the dictators assessment and plan as written, documented as a scribe. Based on total visit time, I have performed more than 50% of this visit. Patient Condition at Discharge: Stable Plan - Discharge Summary New Discharge Prescriptions: New Pantoprazole [Protonix] 40 mg PO BID 14 Days #28 tab Continue Zinc Gluconate [Zinc] 100 mg PO DAILY Celecoxib [CeleBREX] 200 mg PO DAILY Magnesium 300mg 1 tab PO DAILY Cyanocobalamin (Vitamin B-12) [Vitamin B-12] 1,000 mcg PO DAILY Discontinued Esomeprazole Magnesium [NexIUM 24Hr] 20 mg PO DAILY Discharge Medication List Celecoxib [CeleBREX] 200 mg PO DAILY 09/13/21 [History] Cyanocobalamin (Vitamin B-12) [Vitamin B-12] 1,000 mcg PO DAILY 09/13/21 [History] Magnesium 300mg 1 tab PO DAILY 09/13/21 [History] Zinc Gluconate [Zinc] 100 mg PO DAILY 09/13/21 [History] Pantoprazole [Protonix] 40 mg PO BID 14 Days #28 tab 09/15/21 [Rx] Follow up Appointment(s)/Referral(s): Thierry Mcintosh MD [Primary Care Provider] - 1-2 days Nitza Dumas MD [STAFF PHYSICIAN] - 09/17/21 ([facility] will call you with time of colonscopy and when to take prep. Call office with any issues) Ambulatory/Diagnostic Orders: Complete Blood Count w/diff [LAB.AMB] Time Frame: 3 Days, Location: None Selected Patient Instructions/Handouts: Esophagitis (DC), Colonoscopy (DC) Activity/Diet/Wound Care/Special Instructions: Surgical Services will notify you tomorrow for time of colonoscopy on Wednesday September 15, 2021. Complete bowel prep Wednesday, which has been sent in to your pharmacy. Monitor for signs of acute bleeding Protonix twice a day for 2 weeks and can resume home esomeprazole unless otherwise directed from surgical services. Discharge Disposition: HOME SELF-CARE
== END 2021-09-15 14:19 | disposition home or self-care (01) ==
LOC: EC 12:36 → 6NMEDSUR 15:12 → INTOOBSV 09-15 12:03 → OBSVTOIN 09-15 12:03 → UNDODISOB 09-15 14:19 → UNDODISIN 09-15 14:19
PROVIDERS: ADMIT Internal Medicine; ATTEND Internal Medicine
PROC: 0DJ08ZZ Inspection of Upper Intestinal Tract, Via Natural or Artificial Opening Endoscopic (ICD-10-PCS; principal; 2021-09-15 07:55)
DX: K62.5 Hemorrhage of anus and rectum (principal); R10.11 Right upper quadrant pain; K21.00 Gastro-esophageal reflux disease with esophagitis, without bleeding; J45.909 Unspecified asthma, uncomplicated; K44.9 Diaphragmatic hernia without obstruction or gangrene; E11.9 Type 2 diabetes mellitus without complications; M15.9 Polyosteoarthritis, unspecified; N83.202 Unspecified ovarian cyst, left side; N83.201 Unspecified ovarian cyst, right side; Z79.1 Long term (current) use of non-steroidal anti-inflammatories (NSAID); Z79.899 Other long term (current) drug therapy; Z87.891 Personal history of nicotine dependence; Z87.442 Personal history of urinary calculi; Z90.49 Acquired absence of other specified parts of digestive tract; Z87.19 Personal history of other diseases of the digestive system; Z98.890 Other specified postprocedural states
CPT/HCPCS: 96376 ×2; 96361; 96375 ×2; 96374; 99285; 36415; 85379; 80053 ×2; 80048; 82150; 83690; 84484; 85025 ×3; 85610; 85730; 81003; 71045; 74177; 43235; G0378 ×3; J2405; J1170; J2704; C9113 ×3; Q9967; J2001; 96365

== ENCOUNTER 2021-09-17 09:28 | Day surgery (SDC) | payer OTHER ==
[2021-09-16 08:48] VITALS: BMI 31.3
[~2021-09-17 09:28] MED LIST changes: -HEPARIN SODIUM,PORCINE 5,000 UNIT/ML 1 ML VIAL SQ ONE; +LACTATED RINGERS 1,000 ML IV SCH; -ceFAZolin IN SWFI 2 GM/20 ML SYRINGE IVP ONE
[2021-09-17 10:01] VITALS: RESP 16; TEMP 98.9
[2021-09-17] MEDS ORDERED: PROPOFOL 10 MG/ML 20 ML VIAL IV ONE (10:38)
[2021-09-17] MEDS ORDERED: SODIUM CHLORIDE 0.9% 1,000 ML IV ONE (11:05)
--- NOTE | 2021-09-17 11:33 | P.GSHP ---
History of Present Illness H&P Date: 09/17/21 CHIEF COMPLAINT: Colon screen HISTORY OF PRESENT ILLNESS: The patient is a 51-year-old female who presents for colon screen. Lower endoscopy was offered for further evaluation and management. PAST MEDICAL HISTORY: Please see list. PAST SURGICAL HISTORY: Please see list. MEDICATIONS: Please see list. ALLERGIES: Please see list. SOCIAL HISTORY: No illicit drug use FAMILY HISTORY: No reports of Crohn disease or ulcerative colitis. REVIEW OF ORGAN SYSTEMS: CONSTITUTIONAL: No reports of fevers or chills. PHYSICAL EXAM: VITAL SIGNS: Stable GENERAL: Well-developed pleasant in no acute distress. HEENT: No scleral icterus. Extraocular movements grossly intact. Moist buccal mucosa. NECK: Supple without lymphadenopathy. CHEST: Unlabored respirations. Equal bilateral excursions. CARDIOVASCULAR: Regular rate and rhythm. Distal 2+ pulses. ABDOMEN: Soft, nontender, nondistended. MUSCULOSKELETAL: No clubbing, cyanosis, or edema. ASSESSMENT: 1. Colon screen. PLAN: 1. Recommend proceeding with a lower endoscopy Past Medical History Past Medical History: Asthma, GERD/Reflux, Osteoarthritis (OA) Additional Past Medical History / Comment(s): admitted to [facility] w/ abd pain and GI Bleed on 09/13 thru 09/15,hx kidney stones History of Any Multi-Drug Resistant Organisms: None Reported Past Surgical History: Cholecystectomy, Hernia Repair, Tonsillectomy Additional Past Surgical History / Comment(s): ovarian cyst Past Anesthesia/Blood Transfusion Reactions: No Reported Reaction Smoking Status: Former smoker - Past Family History Mother Family Medical History: No Reported History Medications and Allergies Home Medications Medication Instructions Recorded Confirmed Type Cyanocobalamin (Vitamin B-12) 1,000 mcg PO DAILY 09/13/21 09/16/21 History [Vitamin B-12] Magnesium 300mg 300 mg PO DAILY 09/13/21 09/16/21 History Zinc Gluconate [Zinc] 100 mg PO DAILY 09/13/21 09/16/21 History Pantoprazole [Protonix] 40 mg PO BID 14 Days #28 tab 09/15/21 09/16/21 Rx Hydrocortisone Suppository 25 mg RECTAL BID #20 suppositor 09/17/21 Rx [Anusol-Hc] Allergies Allergy/AdvReac Type Severity Reaction Status Date / Time No Known Allergies Allergy Verified 09/16/21 08:40 Surgical - Exam Vital Signs Temp Pulse Resp BP Pulse Ox 98.9 F 67 16 121/67 99 09/17/21 09:59 09/17/21 09:59 09/17/21 09:59 09/17/21 09:59 09/17/21 09:59
--- NOTE | 2021-09-17 11:37 | P.PCN ---
Date of Procedure: 09/17/21 Description of Procedure: PREOPERATIVE DIAGNOSIS: Colonoscopy screening Recent GI bleed POSTOPERATIVE DIAGNOSIS: Recent GI bleed Tubular adenoma sigmoid colon Sigmoid diverticulosis Internal hemorrhoids, grade 4 OPERATION: Colonoscopy to the ileocecal valve and appendiceal orifice, cecum Colonoscopy with hot snare polypectomy SURGEON: Nitza Dumas MD. ANESTHESIA: MAC. INDICATIONS: The patient is an 51-year-old female with recent gastrointestinal bleeding. Benefits and risks were described and informed consent was obtained. DESCRIPTION OF PROCEDURE: The patient had undergone Sutab prep. The patient had been brought into the operating room and laid in the left lateral decubitus position. After adequate intravenous sedation, the rectum was examined with 2% lidocaine jelly. External hemorrhoids were encountered. The rectal tone was within normal limits. No lesions were palpated in the rectal vault. An Olympus colonoscope was advanced until the cecum, ileocecal valve and appendiceal orifice were clearly viewed. The prep was good. Sigmoid diverticulosis was encountered. Colonic polyps were found and removed. No evidence of focal colitis was found. Retroflexion of the scope demonstrated grade 4 internal hemorrhoids without active bleeding or inflammation. The colon was desufflated. The patient had tolerated the procedure well. Withdrawal time was over 6 minutes. FINDINGS: Aronchick preparation quality scale 2 (1-5) Internal hemorrhoids, grade 4 with recent inflammation and bleeding External hemorrhoids, grade 4. No arteriovenous malformations. Sigmoid diverticulosis, few Removal of 1 polyps: - Snare polypectomy 20 cm from the anal verge, 5 mm tubulovillous adenoma polyp, sigmoid colon No focal colitis. RECOMMENDATIONS: Repeat colonoscopy in 3 years, 2024 Rectal suppository for rectal bleeding Plan - Discharge Summary Discharge Rx Participant: No New Discharge Prescriptions: New Hydrocortisone Suppository [Anusol-Hc] 25 mg RECTAL BID #20 suppositor Continue Zinc Gluconate [Zinc] 100 mg PO DAILY Pantoprazole [Protonix] 40 mg PO BID 14 Days #28 tab Magnesium 300mg 300 mg PO DAILY Cyanocobalamin (Vitamin B-12) [Vitamin B-12] 1,000 mcg PO DAILY Discharge Medication List Cyanocobalamin (Vitamin B-12) [Vitamin B-12] 1,000 mcg PO DAILY 09/13/21 [History] Magnesium 300mg 300 mg PO DAILY 09/13/21 [History] Zinc Gluconate [Zinc] 100 mg PO DAILY 09/13/21 [History] Pantoprazole [Protonix] 40 mg PO BID 14 Days #28 tab 09/15/21 [Rx] Hydrocortisone Suppository [Anusol-Hc] 25 mg RECTAL BID #20 suppositor 09/17/21 [Rx] Follow up Appointment(s)/Referral(s): Nitza Dumas MD [STAFF PHYSICIAN] - 09/23/21 10:00 am Patient Instructions/Handouts: *Surgery [facility] - (Anesthesia) Endoscopy Discharge Instructions, Hemorrhoids (DC), Diverticulosis (GEN), Colorectal Polyps (GEN), Diverticulosis Diet (GEN) Activity/Diet/Wound Care/Special Instructions: Repeat colonoscopy in 3 years, 2024 Discharge Disposition: HOME SELF-CARE
[2021-09-17 11:38] VITALS: BP 114/61; PULSE 69
== END 2021-09-17 11:39 | disposition home or self-care (01) ==
LOC: ORWHC2ENDO 09:28
PROVIDERS: ATTEND Surgery Plastic and Reconstructive Surgery
DX: D12.5 Benign neoplasm of sigmoid colon (principal); K57.31 Diverticulosis of large intestine without perforation or abscess with bleeding; K64.3 Fourth degree hemorrhoids; K64.4 Residual hemorrhoidal skin tags; J45.909 Unspecified asthma, uncomplicated; K21.9 Gastro-esophageal reflux disease without esophagitis; M19.90 Unspecified osteoarthritis, unspecified site; Z87.442 Personal history of urinary calculi; Z90.49 Acquired absence of other specified parts of digestive tract; Z98.890 Other specified postprocedural states; Z90.89 Acquired absence of other organs; Z87.891 Personal history of nicotine dependence; Z79.899 Other long term (current) drug therapy
CPT/HCPCS: 81025; 88305; 45385; J2704

== ENCOUNTER 2022-04-18 13:59 | Emergency (ER) | payer OTHER ==
[2022-04-18 14:03] VITALS: PULSE 75; TEMP 98.6
[2022-04-18 14:57] LABS: Appearance,Urine Clear (Clear); Bilirubin,Urine Negative (Negative); Blood,Urine Negative (Negative); Color,Urine Light Yellow; Glucose,Urine (UA) Negative (Negative); Ketones,Urine Negative (Negative); Leukocyte Esterase,Urine Negative (Negative); Nitrite,Urine Negative (Negative); PH, Urine 7.5 (5.0-8.0); Protein,Urine Negative (Negative); Specific Gravity,Urine 1.008 (1.001-1.035); Urobilinogen,Urine <2.0 mg/dL (<2.0)
[2022-04-18] MEDS ORDERED: HYDROcodone/APAP 7.5-325MG 1 EACH TAB PO ONE (15:55)
[2022-04-18] MEDS ORDERED: ONDANSETRON 4 MG/2 ML VIAL IVP STA (15:55)
[2022-04-18] MEDS ORDERED: SODIUM CHLORIDE 0.9% 1,000 ML IV STA (15:55)
[2022-04-18 16:33] LABS: Basophils # (A) 0.1 k/uL (0-0.2); Basophils % (A) 1 %; Eosinophils # (A) 0.2 k/uL (0-0.7); Eosinophils % (A) 3 %; HCT 41.7 % (34.0-46.0); HGB 13.6 gm/dL (11.4-16.0); Lymphocytes # (A) 2.6 k/uL (1.0-4.8); Lymphocytes % (A) 38 %; MCH 31.4 pg (25.0-35.0); MCHC 32.7 g/dL (31.0-37.0); MCV 96.1 fL (80.0-100.0); Mean Platelet Volume 8.9; Monocytes # (A) 0.3 k/uL (0-1.0); Monocytes % (A) 5 %; Neutrophils # (A) 3.5 k/uL (1.3-7.7); Neutrophils % (A) 51 %; Platelet Count 248 k/uL (150-450); RBC 4.34 m/uL (3.80-5.40); RDW 12.8 % (11.5-15.5); WBC 6.8 k/uL (3.8-10.6)
[2022-04-18 16:45] LABS: ALT 28 U/L (4-34); AST 24 U/L (14-36); African American GFR (CKD) >90 (>60 ml/min/1.73 sqM); Alkaline Phosphatase 73 U/L (38-126); Amylase 43 U/L (30-110); Anion Gap 5 mmol/L; Blood Urea Nitrogen 14 mg/dL (7-17); Calcium 8.9 mg/dL (8.4-10.2); Carbon Dioxide 25 mmol/L (22-30); Chloride 109 mmol/L (98-107); Glucose 82 mg/dL (74-99); Lipase 53 U/L (23-300); Non-African American GFR(CKD) >90 (>60 ml/min/1.73 sqM); Potassium 4.1 mmol/L (3.5-5.1); Sodium 139 mmol/L (137-145); Total Bilirubin 0.8 mg/dL (0.2-1.3)
--- NOTE | 2022-04-18 17:15 | US ---
EXAMINATION TYPE: US abdomen limited DATE OF EXAM: 04/18/2022 COMPARISON: NONE CLINICAL HISTORY: RUQ pain, hx of cholecystectomy. Pain TECHNIQUE: Multiple sonographic images of the right upper quadrant are obtained. 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 Liver: wnl Gallbladder: Surgically absent Evidence for sonographic Stiles's sign: No CBD: wnl Right Kidney: wnl IMPRESSION: Cholecystectomy. No dilated ducts. No evidence of pancreatic mass.
[2022-04-18] MEDS ORDERED: KETOROLAC 15 MG/ML 1 ML VIAL IVP STA (17:54)
--- NOTE | 2022-04-18 18:02 | ED ---
Abdominal Pain HPI - General Chief Complaint: Abdominal Pain Stated Complaint: abdominal pain Time Seen by Provider: 04/18/22 15:36 Source: patient Mode of arrival: ambulatory Limitations: no limitations - History of Present Illness Initial Comments: Patient is a 52-year-old female who presents to the emergency department for evaluation of abdominal pain. Patient reports pain in her right upper abdomen which has been occurring for the past year with worsening in the past few weeks. She has history of cholecystectomy approximately 6 years ago. Oatient scheduled for outpatient ultrasound next week due to primary care providers concern for "blocked duct " however patient presents today due to increased pain. Patient has not taken pain medication, reports 7/10 in severity. Patient describes it as a sharp pain in her right upper abdomen that radiates to her back. Patient is adamant that pain is not in the epigastric region. It is associated with nausea and one episode of vomiting. Patient also reports decreased appetite. She denies fever, chills, chest pain, shortness of breath, diarrhea, burning with urination, increased urinary frequency/urgency. Does admit to intermittent blood in stool which she states is chronic for her. Patient presented for similar symptoms in August. This documentation was reviewed. Patient was evaluated by Dr. Dumas who performed hiatal hernia surgery on patient 3 years ago. EGD was performed on 09/15/21 which was reviewed and showed hiatal hernia and erosive esophagitis with no active duodenitis or bleeding. It was thought to be due to chronic Celebrex use. Patient states she was switched to diclofenac. Patient was discharged with Protonix and outpatient colonoscopy was scheduled for rectal bleeding. This was performed which I reviewed. This was significant for internal/external hemorrhoids and one polyp which found to be tubular adenoma. - Related Data Home Medications Medication Instructions Recorded Confirmed Diclofenac Sodium [Voltaren] 75 mg PO BID 04/18/22 04/18/22 Previous Rx's Medication Instructions Recorded Ketorolac [Toradol] 10 mg PO Q8HR #15 tab 04/18/22 Ondansetron Odt [Zofran Odt] 4 mg PO Q8HR PRN #12 tab 04/18/22 Allergies Allergy/AdvReac Type Severity Reaction Status Date / Time No Known Allergies Allergy Verified 04/18/22 18:21 Review of Systems ROS Statement: Those systems with pertinent positive or pertinent negative responses have been documented in the HPI. ROS Other: All systems not noted in ROS Statement are negative. Past Medical History Past Medical History: Asthma, GERD/Reflux, Osteoarthritis (OA) Additional Past Medical History / Comment(s): admitted to [facility] w/ abd pain and GI Bleed on 09/13 thru 09/15,hx kidney stones History of Any Multi-Drug Resistant Organisms: None Reported Past Surgical History: Cholecystectomy, Hernia Repair, Tonsillectomy Additional Past Surgical History / Comment(s): ovarian cyst Past Anesthesia/Blood Transfusion Reactions: No Reported Reaction Past Psychological History: No Psychological Hx Reported Smoking Status: Former smoker Past Alcohol Use History: None Reported Past Drug Use History: None Reported - Past Family History Mother Family Medical History: No Reported History General Exam Limitations: no limitations General appearance: alert, in no apparent distress Head exam: Present: atraumatic, normocephalic, normal inspection Eye exam: Present: normal appearance, PERRL, EOMI. Absent: scleral icterus, conjunctival injection, periorbital swelling Respiratory exam: Present: normal lung sounds bilaterally. Absent: respiratory distress, wheezes, rales, rhonchi, stridor Cardiovascular Exam: Present: regular rate, normal rhythm, normal heart sounds. Absent: systolic murmur, diastolic murmur, rubs, gallop, clicks GI/Abdominal exam: Present: soft, tenderness (RUQ), normal bowel sounds. Absent: distended, guarding, rebound, rigid, pulsatile mass, hernia Back exam: Present: normal inspection, full ROM. Absent: tenderness, CVA tenderness (R), CVA tenderness (L), paraspinal tenderness, vertebral tenderness Neurological exam: Present: alert, oriented X3, CN II-XII intact Psychiatric exam: Present: normal affect, normal mood Course Vital Signs 04/18/22 04/18/22 14:00 18:46 Temperature 98.6 F Pulse Rate 75 75 Respiratory 22 18 Rate Blood Pressure 138/63 117/69 O2 Sat by Pulse 98 96 Oximetry Medical Decision Making - Medical Decision Making This is a 52-year-old female presenting with right upper quadrant pain. Patient well-appearing and in no apparent distress. Afebrile. There is moderate tender ness in the right upper quadrant without rigidity or guarding. Laboratory studies obtained. There is no leukocytosis. No abnormal liver enzymes. Normal bilirubin. Urinalysis is not indicative of infection. Abdominal ultrasound obtained interpreted by me which shows no dilated ducts. No evidence of pancreatic mass or other abnormality. Results discussed with patient. Pain unchanged. Toradol given. CT of abdomen and pelvis with contrast was obtained and interpreted by me which shows a nondilated bile neck, small hiatal hernia, clips from cholecystectomy. There is a large right ovarian cyst compared to old exam. Patient does not have right lower quadrant pain or tenderness. Results discussed with patient. At this time there are no diagnostic studies to explain patient's symptoms. I offered patient admission for pain control and further evaluation however she declined. Patient did have pain relief with Toradol. I will send a very short course of this medication. Patient will follow up with primary care provider. Dr. Harrell is my attending. - Lab Data Result diagrams: 04/18/22 16:24 04/18/22 16:24 Lab Results 04/18/22 04/18/22 04/18/22 Range/Units 14:48 16:24 16:24 WBC 6.8 (3.8-10.6) k/uL RBC 4.34 (3.80-5.40) m/uL Hgb 13.6 (11.4-16.0) gm/dL Hct 41.7 (34.0-46.0) % MCV 96.1 (80.0-100.0) fL MCH 31.4 (25.0-35.0) pg MCHC 32.7 (31.0-37.0) g/dL RDW 12.8 (11.5-15.5) % Plt Count 248 (150-450) k/uL MPV 8.9 Neutrophils % 51 % Lymphocytes % 38 % Monocytes % 5 % Eosinophils % 3 % Basophils % 1 % Neutrophils # 3.5 (1.3-7.7) k/uL Lymphocytes # 2.6 (1.0-4.8) k/uL Monocytes # 0.3 (0-1.0) k/uL Eosinophils # 0.2 (0-0.7) k/uL Basophils # 0.1 (0-0.2) k/uL Sodium 139 (137-145) mmol/L Potassium 4.1 (3.5-5.1) mmol/L Chloride 109 H (98-107) mmol/L Carbon Dioxide 25 (22-30) mmol/L Anion Gap 5 mmol/L BUN 14 (7-17) mg/dL Creatinine 0.56 (0.52-1.04) mg/dL Est GFR (CKD-EPI)AfAm >90 (>60 ml/min/1.73 sqM) Est GFR (CKD-EPI)NonAf >90 (>60 ml/min/1.73 sqM) Glucose 82 (74-99) mg/dL Calcium 8.9 (8.4-10.2) mg/dL Total Bilirubin 0.8 (0.2-1.3) mg/dL AST 24 (14-36) U/L ALT 28 (4-34) U/L Alkaline Phosphatase 73 (38-126) U/L Total Protein 7.0 (6.3-8.2) g/dL Albumin 4.0 (3.5-5.0) g/dL Amylase 43 (30-110) U/L Lipase 53 (23-300) U/L Urine Color Light Yellow Urine Appearance Clear (Clear) Urine pH 7.5 (5.0-8.0) Ur Specific [place] 1.008 (1.001-1.035) Urine Protein Negative (Negative) Urine Glucose (UA) Negative (Negative) Urine Ketones Negative (Negative) Urine Blood Negative (Negative) Urine Nitrite Negative (Negative) Urine Bilirubin Negative (Negative) Urine Urobilinogen <2.0 (<2.0) mg/dL Ur Leukocyte Esterase Negative (Negative) Disposition Clinical Impression: RUQ pain, Nausea & vomiting, Decreased appetite Disposition: HOME SELF-CARE Condition: Good Instructions (If sedation given, give patient instructions): Abdominal Pain (ED) Additional Instructions: Take medication as directed. Follow-up with primary care provider as planned. Return to the emergency department experience new, concerning, or worsening symptoms. Prescriptions: Ketorolac [Toradol] 10 mg PO Q8HR #15 tab Ondansetron Odt [Zofran Odt] 4 mg PO Q8HR PRN #12 tab PRN Reason: Nausea Is patient prescribed a controlled substance at d/c from ED?: No Referrals: Thierry Mcintosh MD [Primary Care Provider] - 1-2 days
[2022-04-18 18:47] VITALS: BP 117/69; RESP 18
--- NOTE | 2022-04-18 18:47 | CT ---
EXAMINATION TYPE: CT abdomen pelvis w con DATE OF EXAM: 04/18/2022 COMPARISON: 09/13/2021 HISTORY: Abdominal pain. Right upper quadrant pain CT DLP: mGycm Automated exposure control for dose reduction was used. CONTRAST: Isovue 100 mL IV. FINDINGS: There are some mild subsegmental atelectasis at the posterior lung bases. No pleural effusion. Heart size is normal. No pericardial effusion. There is small hiatal hernia. Stomach is intact. There are c lips from cholecystectomy. The bile necks are nondilated. Spleen is intact. There is no pancreatic ma ss. Liver is intact. There is no adrenal mass. Kidneys show satisfactory contrast opacification. No hydronephrosis. Ureter s are not dilated. No retroperitoneal adenopathy. Bladder distends smoothly. There is 5 x 4 cm cystic fluid collection in the pelvis on the right side at could be ovarian cyst. There is IUD in the uteri ne fundus. Uterus is anteverted. Appendix not clearly seen. No sign of thickened appendix. There is no mesenteric edema. No ascites or free air. Delayed images show normal renal excretion. No intestinal wall thickening. The lumbar vertebra have normal alignment. No compression fracture. This spaces are normal. Bony pelv is is intact. The hip joints are intact. IMPRESSION: Large right ovarian cyst is increased compared to old exam. Appendix not seen.
== END 2022-04-18 19:18 | disposition home or self-care (01) ==
LOC: EC 13:59
DX: R10.11 Right upper quadrant pain (principal); R11.2 Nausea with vomiting, unspecified; J45.909 Unspecified asthma, uncomplicated; R63.0 Anorexia; Z87.891 Personal history of nicotine dependence
CPT/HCPCS: 36415; 80053; 82150; 83690; 85025; 81003; 76705; 74177; 99284; 96374; 96375; 96361; J2405; J1885; Q9967

== ENCOUNTER → 2022-04-22 | Outpatient (CLI) | payer OTHER ==
--- NOTE | 2022-04-22 08:34 | MM ---
Reason for Exam: Follow-up at short interval from prior study. Last mammogram was performed 1 year(s) and 8 month(s) ago. Patient History: Menarche at age 14. First Full-Term at age 35. Late child-bearing (after 30). Currently using Hormonal Contraceptives, for 6 months. Last menstrual period: 05/20/2020 Risk Values: Tanisha 5 year model risk: 1.3%. NCI Lifetime model risk: 10.8%. Prior Study Comparison: 12/07/2017 Bilateral Diagnostic Mammogram, [facility]. 08/22/2020 Bilateral Screening Mammogram, [facility]. 08/05/2021 Right Diagnostic Mammogram, [facility]. Tissue Density: The breast tissue is heterogeneously dense. This may lower the sensitivity of mammography. Findings: Analyzed By CAD. Stable breast cysts within the right breast which were characterized on prior ultrasound. No new suspicious masses consultations or distortions. Overall Assessment: Benign, BI-RAD 2 Management: Screening Mammogram of both breasts in 1 year. A clinical breast exam by your physician is recommended on an annual basis and results should be correlated with mammographic findings. This exam should not preclude additional follow-up of suspicious palpable abnormalities. Results were given to the patient verbally at the time of exam. Electronically signed and approved by: Stevo Mir DO
== END | disposition home or self-care (01) ==
LOC: RADMAMWWP 06:55
PROVIDERS: ATTEND Family Medicine
DX: R92.8 Other abnormal and inconclusive findings on diagnostic imaging of breast (principal); R10.11 Right upper quadrant pain
CPT/HCPCS: 77062; 77066

== ENCOUNTER → 2022-06-01 | Outpatient (CLI) | payer OTHER ==
--- NOTE | 2022-06-01 13:00 | US ---
EXAMINATION TYPE: US pelvic complete DATE OF EXAM: 06/01/2022 COMPARISON: Transvaginal ultrasound 05/07/2020, CT abdomen and pelvis 04/18/2022. CLINICAL HISTORY: N83.[address] showed right ovarian cyst, patient has history of o v cysts, h/o IUD, TECHNIQUE: TA. Transabdominal sonographic images of the pelvis were acquired. Date of LMP: h/o 2 IUD's, has some spotting but not true cycles EXAM MEASUREMENTS: Uterus: 8.4 x 4.0 x 5.2 cm Endometrial Stripe: 0.7 cm Right Ovary: 2.8 x 2.8 x 3.2 cm Left Ovary: 2.5 x 2.5 x 1.8 cm 1. Uterus: Anteverted wnl 2. Endometrium: fundal IUD seen 3. Right Ovary: 2 separate cystic structures seen, posterior = 3.2 x 2.7 x 2.6cm, anterior = 2.3 x 2 .3 x 2.6cm 4. Left Ovary: wnl 5. Bilateral Adnexa: wnl 6. Posterior cul-de-sac: wnl IMPRESSION: 1. No acute pelvic process. 2. There are 2 simple appearing right ovarian cysts with the largest one measuring up to 3.2 cm. 3. IUD is present within the uterus.
== END | disposition home or self-care (01) ==
LOC: RADUSWWP 12:17
PROVIDERS: ATTEND Family Medicine
DX: N83.201 Unspecified ovarian cyst, right side (principal); Z97.5 Presence of (intrauterine) contraceptive device
CPT/HCPCS: 76856

== ENCOUNTER 2022-10-17 12:26 | Emergency (ER) | payer OTHER ==
[2022-10-17 12:33] VITALS: TEMP 98
[2022-10-17] MEDS ORDERED: KETOROLAC 15 MG/ML 1 ML VIAL IVP STA (13:00)
[2022-10-17] MEDS ORDERED: SODIUM CHLORIDE 0.9% 1,000 ML IV STA (13:00)
[2022-10-17] MEDS ORDERED: ONDANSETRON 4 MG/2 ML VIAL IVP STA (13:00)
--- NOTE | 2022-10-17 13:10 | ED ---
Abdominal Pain HPI - General Chief Complaint: Abdominal Pain Stated Complaint: Abd Pain Time Seen by Provider: 10/17/22 12:47 Source: patient, RN notes reviewed Mode of arrival: ambulatory Limitations: no limitations - History of Present Illness Initial Comments: This is a 52-year-old female who presents to the emergency department for abdominal pain. States that this started last night. Describes this as being in the right lower quadrant, however it started out in the center of the abdomen. She has nausea but no vomiting. Denies any fevers or chills. Reports associated diarrhea. Also reports a history of kidney stones and ovarian cysts, but states that this feels different. Denies any fevers, chills, sore throat, cough, dyspnea, chest pain, palpitations, vomiting, back pain, or headaches. MD Complaint: abdominal pain Onset/Timin -: days(s) Location: RLQ Associated Symptoms: nausea - Related Data Home Medications Medication Instructions Recorded Confirmed Diclofenac Sodium [Voltaren] 75 mg PO BID 04/18/22 04/18/22 Previous Rx's Medication Instructions Recorded Ketorolac [Toradol] 10 mg PO Q8HR #15 tab 04/18/22 Ondansetron Odt [Zofran Odt] 4 mg PO Q8HR PRN #12 tab 04/18/22 Ondansetron Odt [Zofran Odt] 4 mg PO Q8HR PRN #10 tab 10/17/22 traMADol HCl [Ultram] 50 mg PO Q6HR PRN 3 Days #12 tab 10/17/22 Allergies Allergy/AdvReac Type Severity Reaction Status Date / Time No Known Allergies Allergy Verified 10/17/22 12:32 Review of Systems ROS Statement: Those systems with pertinent positive or pertinent negative responses have been documented in the HPI. ROS Other: All systems not noted in ROS Statement are negative. Past Medical History Past Medical History: Asthma, GERD/Reflux, Osteoarthritis (OA) Additional Past Medical History / Comment(s): admitted to [facility] w/ abd pain and GI Bleed on 09/13 thru 09/15,hx kidney stones History of Any Multi-Drug Resistant Organisms: None Reported Past Surgical History: Cholecystectomy, Hernia Repair, Tonsillectomy Additional Past Surgical History / Comment(s): ovarian cyst Past Anesthesia/Blood Transfusion Reactions: No Reported Reaction Past Psychological History: No Psychological Hx Reported Smoking Status: Former smoker Past Alcohol Use History: None Reported Past Drug Use History: None Reported - Past Family History Mother Family Medical History: No Reported History General Exam Limitations: no limitations General appearance: alert, in no apparent distress Head exam: Present: atraumatic, normocephalic, normal inspection Respiratory exam: Present: normal lung sounds bilaterally. Absent: respiratory distress, wheezes, rales, rhonchi, stridor Cardiovascular Exam: Present: regular rate, normal rhythm, normal heart sounds. Absent: systolic murmur, diastolic murmur, rubs, gallop, clicks GI/Abdominal exam: Present: soft, tenderness (RLQ), normal bowel sounds. Absent: distended, guarding, rebound, rigid Neurological exam: Present: alert, oriented X3, CN II-XII intact Psychiatric exam: Present: normal affect, normal mood Skin exam: Present: warm, dry, intact, normal color. Absent: rash Course Vital Signs 10/17/22 10/17/22 10/17/22 12:30 13:34 15:40 Temperature 98 F Pulse Rate 86 59 L 66 Respiratory 20 16 18 Rate Blood Pressure 123/82 132/72 129/87 O2 Sat by Pulse 99 99 99 Oximetry Medical Decision Making - Medical Decision Making This is a 52-year-old female who presents to the emergency department for abdominal pain. Was pt. sent in by a medical professional or institution? @ -No Did you speak to anyone other than the patient for history? @ -No Did you review nursing and triage notes? @ -Yes, and I agree, it is accurate with regards to the patient's symptoms. Were old charts reviewed? @ -No Differential Diagnosis? @ -Differential Abdominal Pain Women: Appendicitis, diverticulosis, ischemic bowel, pancreatitis, hepatitis, UTI, gastroenteritis, AAA, incarcerated hernia, bowel obstruction, constipation, inflammatory bowel, hepatitis, peptic ulcer disease, splenic infarction, perforated viscus, vulvitis, ovarian torsion, PID, kidney stone, placenta abruption, this is not meant to be an all-inclusive list EKG interpreted by me (3pts min.)? @ -Not obtained X-rays interpreted by me (1pt min.)? @ -Not obtained CT interpreted by me (1pt min.)? @ -Computed tomography scan of the abdomen and pelvis obtained. My interpreta tion identifies no evidence of dilation of the appendix, bowel wall thickening, or free air. U/S interpreted by me (1pt. min.)? @ -Not obtained What testing was considered but not performed? (CT, X-rays, U/S, labs)? Why? @ -None What meds were considered but not given? Why? @ -None Did you discuss the management of the patient with other professionals? @ -No Did you reconcile home meds? @ -No Was smoking cessation discussed for >3mins.? @ -No Was critical care preformed (if so, how long)? @ -No Were there social determinants of health that impacted care today? How? (Homelessness, low income, unemployed, alcoholism, drug addiction, transportation, low edu. Level, literacy, decrease access to med. care, prison, rehab)? @ -No Was there de-escalation of care discussed even if they declined? (Discuss DNR or withdrawal of care, Hospice)? @ -No What co-morbidities impacted this encounter? (DM, HTN, Smoking, COPD, CAD, Cancer, CVA, Hep., AIDS, mental health diagnosis, sleep apnea, morbid obesity)? @ -Morbid obesity Was patient admitted / discharged? @ -Discharged. Lab work obtained and found to be nonactionable. Computed tomography scan of the abdomen and pelvis obtained revealing no acute findings to account for her symptoms. The appendix was visualized and no evidence of appendicitis was identified. She has a left-sided ovarian cyst, however the patient's symptoms are on the right side. She also notes a history of ovarian cysts and states that the pain is different. She had some improvement in pain with the Toradol, states that it took the edge off and made it more tolerable. Advised that this may be musculoskeletal in nature. Recommended ibuprofen and T ylenol as needed for pain relief. Prescription for Zofran provided with dosing instructions reviewed. She is instructed to follow up with her primary care provider for reevaluation of symptoms. Undiagnosed new problem with uncertain prognosis? @ -None Drug Therapy requiring intensive monitoring for toxicity (Heparin, Nitro, Insulin, Cardizem)? @ -None Were any procedures done? @ -None Diagnosis/symptom? @ -Abdominal pain Acute, or Chronic, or Acute on Chronic? @ -Acute Uncomplicated (without systemic symptoms) or Complicated (systemic symptoms)? @ -Uncomplicated Side effects of treatment? @ -None Exacerbation, Progression, or Severe Exacerbation] @ -Not applicable Poses a threat to life or bodily function? @ -No Return precautions reviewed in depth, the patient is instructed to return to the emergency department with any new, worsening, or concerning symptoms. Patient verbalized understanding. This case was discussed in detail with the attending ED physician, Dr. Roth. Presentation, findings, and treatment plan discussed in detail as well. - Lab Data Result diagrams: 10/17/22 13:15 10/17/22 13:15 Lab Results 10/17/22 10/17/22 10/17/22 Range/Units 13:15 13:15 13:15 WBC 7.2 (3.8-10.6) k/uL RBC 4.32 (3.80-5.40) m/uL Hgb 13.4 (11.4-16.0) gm/dL Hct 41.5 (34.0-46.0) % MCV 96.0 (80.0-100.0) fL MCH 31.1 (25.0-35.0) pg MCHC 32.4 (31.0-37.0) g/dL RDW 12.5 (11.5-15.5) % Plt Count 278 (150-450) k/uL MPV 8.4 Neutrophils % 53 % Lymphocytes % 37 % Monocytes % 5 % Eosinophils % 2 % Basophils % 1 % Neutrophils # 3.8 (1.3-7.7) k/uL Lymphocytes # 2.7 (1.0-4.8) k/uL Monocytes # 0.4 (0-1.0) k/uL Eosinophils # 0.1 (0-0.7) k/uL Basophils # 0.0 (0-0.2) k/uL Sodium 137 (137-145) mmol/L Potassium 4.1 (3.5-5.1) mmol/L Chloride 106 (98-107) mmol/L Carbon Dioxide 23 (22-30) mmol/L Anion Gap 8 mmol/L BUN 15 (7-17) mg/dL Creatinine 0.58 (0.52-1.04) mg/dL Est GFR (CKD-EPI)AfAm >90 (>60 ml/min/1.73 sqM) Est GFR (CKD-EPI)NonAf >90 (>60 ml/min/1.73 sqM) Glucose 95 (74-99) mg/dL Plasma Lactic Acid E[place] (0.7-2.0) mmol/L Calcium 8.6 (8.4-10.2) mg/dL Total Bilirubin 0.6 (0.2-1.3) mg/dL AST 22 (14-36) U/L ALT 29 (4-34) U/L Alkaline Phosphatase 71 (38-126) U/L Total Protein 7.0 (6.3-8.2) g/dL Albumin 3.8 (3.5-5.0) g/dL Urine Color Yellow Urine Appearance Clear (Clear) Urine pH 7.0 (5.0-8.0) Ur Specific [place] 1.013 (1.001-1.035) Urine Protein Negative (Negative) Urine Glucose (UA) Negative (Negative) Urine Ketones Negative (Negative) Urine Blood Negative (Negative) Urine Nitrite Negative (Negative) Urine Bilirubin Negative (Negative) Urine Urobilinogen <2.0 (<2.0) mg/dL Ur Leukocyte Esterase Trace H (Negative) Urine RBC 1 (0-5) /hpf Urine WBC 1 (0-5) /hpf Ur Squamous Epith Cells 1 (0-4) /hpf Urine Mucus Rare H (None) /hpf 10/17/22 Range/Units 13:15 WBC (3.8-10.6) k/uL RBC (3.80-5.40) m/uL Hgb (11.4-16.0) gm/dL Hct (34.0-46.0) % MCV (80.0-100.0) fL MCH (25.0-35.0) pg MCHC (31.0-37.0) g/dL RDW (11.5-15.5) % Plt Count (150-450) k/uL MPV Neutrophils % % Lymphocytes % % Monocytes % % Eosinophils % % Basophils % % Neutrophils # (1.3-7.7) k/uL Lymphocytes # (1.0-4.8) k/uL Monocytes # (0-1.0) k/uL Eosinophils # (0-0.7) k/uL Basophils # (0-0.2) k/uL Sodium (137-145) mmol/L Potassium (3.5-5.1) mmol/L Chloride (98-107) mmol/L Carbon Dioxide (22-30) mmol/L Anion Gap mmol/L BUN (7-17) mg/dL Creatinine (0.52-1.04) mg/dL Est GFR (CKD-EPI)AfAm (>60 ml/min/1.73 sqM) Est GFR (CKD-EPI)NonAf (>60 ml/min/1.73 sqM) Glucose (74-99) mg/dL Plasma Lactic Acid Elier 0.9 (0.7-2.0) mmol/L Calcium (8.4-10.2) mg/dL Total Bilirubin (0.2-1.3) mg/dL AST (14-36) U/L ALT (4-34) U/L Alkaline Phosphatase (38-126) U/L Total Protein (6.3-8.2) g/dL Albumin (3.5-5.0) g/dL Urine Color Urine Appearance (Clear) Urine pH (5.0-8.0) Ur Specific [place] (1.001-1.035) Urine Protein (Negative) Urine Glucose (UA) (Negative) Urine Ketones (Negative) Urine Blood (Negative) Urine Nitrite (Negative) Urine Bilirubin (Negative) Urine Urobilinogen (<2.0) mg/dL Ur Leukocyte Esterase (Negative) Urine RBC (0-5) /hpf Urine WBC (0-5) /hpf Ur Squamous Epith Cells (0-4) /hpf Urine Mucus (None) /hpf - Radiology Data Radiology results: report reviewed, image reviewed Disposition Clinical Impression: Abdominal pain Disposition: HOME SELF-CARE Instructions (If sedation given, give patient instructions): Abdominal Pain (ED) Additional Instructions: Return to the emergency department with any new, worsening, or concerning symptoms. Alternate with ibuprofen and Tylenol as needed for pain relief. You can take the Zofran up to every 8 hours as needed for nausea and vomiting. Follow up with your primary care provider in 1-2 days. Prescriptions: Ondansetron Odt [Zofran Odt] 4 mg PO Q8HR PRN #10 tab PRN Reason: Nausea And Vomiting Is patient prescribed a controlled substance at d/c from ED?: No Referrals: Thierry Mcintosh MD [Primary Care Provider] - 1-2 days
[2022-10-17 13:33] LABS: Basophils % (A) 1 %; Eosinophils # (A) 0.1 k/uL (0-0.7); Eosinophils % (A) 2 %; HCT 41.5 % (34.0-46.0); HGB 13.4 gm/dL (11.4-16.0); Lymphocytes # (A) 2.7 k/uL (1.0-4.8); Lymphocytes % (A) 37 %; MCH 31.1 pg (25.0-35.0); MCHC 32.4 g/dL (31.0-37.0); Mean Platelet Volume 8.4; Monocytes # (A) 0.4 k/uL (0-1.0); Monocytes % (A) 5 %; Neutrophils # (A) 3.8 k/uL (1.3-7.7); Neutrophils % (A) 53 %; Platelet Count 278 k/uL (150-450); RBC 4.32 m/uL (3.80-5.40); RDW 12.5 % (11.5-15.5); WBC 7.2 k/uL (3.8-10.6)
[2022-10-17 13:38] LABS: Appearance,Urine Clear (Clear); Bilirubin,Urine Negative (Negative); Blood,Urine Negative (Negative); Color,Urine Yellow; Glucose,Urine (UA) Negative (Negative); Ketones,Urine Negative (Negative); Leukocyte Esterase,Urine Trace (Negative); Mucus,Urine Rare /hpf; Nitrite,Urine Negative (Negative); Protein,Urine Negative (Negative); RBC,Urine 1 /hpf (0-5); Specific Gravity,Urine 1.013 (1.001-1.035); Squamous Epithelial Cell,Urine 1 /hpf (0-4); Urobilinogen,Urine <2.0 mg/dL (<2.0); WBC,Urine 1 /hpf (0-5)
[2022-10-17 13:46] LABS: ALT 29 U/L (4-34); AST 22 U/L (14-36); African American GFR (CKD) >90 (>60 ml/min/1.73 sqM); Albumin 3.8 g/dL (3.5-5.0); Alkaline Phosphatase 71 U/L (38-126); Anion Gap 8 mmol/L; Blood Urea Nitrogen 15 mg/dL (7-17); Calcium 8.6 mg/dL (8.4-10.2); Carbon Dioxide 23 mmol/L (22-30); Chloride 106 mmol/L (98-107); Glucose 95 mg/dL (74-99); Non-African American GFR(CKD) >90 (>60 ml/min/1.73 sqM); Potassium 4.1 mmol/L (3.5-5.1); Sodium 137 mmol/L (137-145); Total Bilirubin 0.6 mg/dL (0.2-1.3)
--- NOTE | 2022-10-17 14:28 | CT ---
EXAMINATION TYPE: CT abdomen pelvis w con DATE OF EXAM: 10/17/2022 COMPARISON: 04/18/2022 HISTORY: Right lower quadrant pain CT DLP: 1393.5 mGycm CONTRAST: CT scan of the abdomen and pelvis is performed without Oral Contrast and with IV Contrast, patient in jected with 100 mL of Isovue 300. FINDINGS: LUNG BASES-: No visible nodule. No infiltrate. Small hiatal hernia noted. LIVER/GB: The gallbladder is surgically absent. No space occupying hepatic lesion. Biliary tree is of normal caliber. PANCREAS: No inflammation. No distinct mass. SPLEEN: No splenic enlargement. No lesion seen. ADRENALS: No nodule. No thickening. KIDNEYS/BLADDER: No hydronephrosis. No nephrolithiasis. No distinct renal mass. Urinary bladder g rossly unremarkable. BOWEL: Normal appendix visualized. Normal bowel caliber. No inflammation. GENITAL ORGANS: Resolution of large right ovarian cyst seen previously. New left ovarian cyst measuri ng 3.7 cm. IUD is noted to be in place. LYMPH NODES: No greater than 1cm abdominal or pelvic lymph nodes are appreciated. AORTA: No significant abnormality. OSSEOUS STRUCTURES: No significant abnormality is seen. OTHER: No significant additional abnormality is seen. IMPRESSION: 1. 3.7 cm left ovarian cyst.
[2022-10-17] MEDS ORDERED: ONDANSETRON 4 MG ODT STARTER PACK 2 TAB BTL PO STA (15:05)
[2022-10-17] MEDS ORDERED: traMADol 50 MG STARTER PACK 3 TAB BTL PO STA (15:05)
[2022-10-17] MEDS ORDERED: IBUPROFEN 600 MG STARTER PACK 4 TAB BTL PO STA (15:05)
[2022-10-17 15:44] VITALS: BP 129/87; PULSE 66; RESP 18
== END 2022-10-17 15:43 | disposition home or self-care (01) ==
LOC: EC 12:26
DX: R10.31 Right lower quadrant pain (principal); J45.909 Unspecified asthma, uncomplicated; M19.90 Unspecified osteoarthritis, unspecified site; Z79.1 Long term (current) use of non-steroidal anti-inflammatories (NSAID); Z87.891 Personal history of nicotine dependence
CPT/HCPCS: 36415; 80053; 83605; 85025; 81001; 74177; 99284; 96374; 96375; 96361; J2405; J1885; S0119; Q9967

== ENCOUNTER 2022-11-30 17:23 | Emergency (ER) | payer OTHER ==
[2022-11-30 17:35] VITALS: TEMP 97.8
[2022-11-30 18:05] LABS: Appearance,Urine Cloudy (Clear); Bilirubin,Urine Negative (Negative); Blood,Urine Negative (Negative); Color,Urine Light Yellow; Glucose,Urine (UA) Negative (Negative); Hyaline Casts,Urine 1 /lpf (0-2); Ketones,Urine Negative (Negative); Leukocyte Esterase,Urine Moderate (Negative); Mucus,Urine Rare /hpf; Nitrite,Urine Negative (Negative); PH, Urine 5.5 (5.0-8.0); Protein,Urine Negative (Negative); RBC,Urine 1 /hpf (0-5); Specific Gravity,Urine 1.007 (1.001-1.035); Squamous Epithelial Cell,Urine 7 /hpf (0-4); Urobilinogen,Urine <2.0 mg/dL (<2.0); WBC,Urine 3 /hpf (0-5)
--- NOTE | 2022-11-30 18:53 | ED ---
General Adult HPI - General Chief complaint: Urogenital Stated complaint: kidney stones,back pain Time Seen by Provider: 11/30/22 18:20 Source: patient, RN notes reviewed Mode of arrival: ambulatory Limitations: no limitations - History of Present Illness Initial comments: 52-year-old female presents to the emergency department chief complaint of right-sided flank pain 1 day. She states that on Wednesday she started having burning with urination and went to the urgent care was treated for a urinary tract infection. She reports associated nausea without vomiting. She states that she is still on her antibiotic for UTI. She denies fever, chills, vo miting, diarrhea. - Related Data Home Medications Medication Instructions Recorded Confirmed Diclofenac Sodium [Voltaren] 75 mg PO BID 04/18/22 04/18/22 Previous Rx's Medication Instructions Recorded Ketorolac [Toradol] 10 mg PO Q8HR #15 tab 04/18/22 Ondansetron Odt [Zofran Odt] 4 mg PO Q8HR PRN #12 tab 04/18/22 Ondansetron Odt [Zofran Odt] 4 mg PO Q8HR PRN #10 tab 10/17/22 traMADol HCl [Ultram] 50 mg PO Q6HR PRN 3 Days #12 tab 10/17/22 Allergies Allergy/AdvReac Type Severity Reaction Status Date / Time No Known Allergies Allergy Verified 11/30/22 17:35 Review of Systems ROS Statement: Those systems with pertinent positive or pertinent negative responses have been documented in the HPI. ROS Other: All systems not noted in ROS Statement are negative. Past Medical History Past Medical History: Asthma, GERD/Reflux, Osteoarthritis (OA) Additional Past Medical History / Comment(s): admitted to [facility] w/ abd pain and GI Bleed on 09/13 thru 09/15,hx kidney stones History of Any Multi-Drug Resistant Organisms: None Reported Past Surgical History: Cholecystectomy, Hernia Repair, Tonsillectomy Additional Past Surgical History / Comment(s): ovarian cyst Past Anesthesia/Blood Transfusion Reactions: No Reported Reaction Past Psychological History: No Psychological Hx Reported Smoking Status: Former smoker Past Alcohol Use History: None Reported Past Drug Use History: None Reported - Past Family History Mother Family Medical History: No Reported History General Exam Limitations: no limitations General appearance: alert, in no apparent distress Head exam: Present: atraumatic, normocephalic, normal inspection Eye exam: Present: normal appearance ENT exam: Present: normal exam, mucous membranes moist Neck exam: Present: normal inspection. Absent: tenderness, meningismus, lymphadenopathy Respiratory exam: Present: normal lung sounds bilaterally. Absent: respiratory distress, wheezes, rales, rhonchi, stridor Cardiovascular Exam: Present: regular rate, normal rhythm, normal heart sounds. Absent: systolic murmur, diastolic murmur, rubs, gallop, clicks GI/Abdominal exam: Present: soft, normal bowel sounds. Absent: distended, tenderness, guarding, rebound, rigid Extremities exam: Present: normal inspection, full ROM, normal capillary refill. Absent: tenderness, pedal edema, joint swelling, calf tenderness Back exam: Present: normal inspection, full ROM, tenderness (right sided flank t tp ). Absent: CVA tenderness (R), CVA tenderness (L) Neurological exam: Present: alert, oriented X3 Psychiatric exam: Present: normal affect, normal mood Skin exam: Present: warm, dry, intact, normal color. Absent: rash Course Vital Signs 11/30/22 11/30/22 11/30/22 17:32 18:48 20:42 Temperature 97.8 F Pulse Rate 84 77 67 Respiratory 16 20 20 Rate Blood Pressure 120/85 121/82 134/90 O2 Sat by Pulse 98 99 98 Oximetry 11/30/22 21:19 Temperature Pulse Rate 85 Respiratory 16 Rate Blood Pressure 130/65 O2 Sat by Pulse 98 Oximetry Medical Decision Making - Medical Decision Making Was pt. sent in by a medical professional or institution (, PA, [employer], urgent care, hospital, or [place] health care facility...) When possible be specific @ -No Did you speak to anyone other than the patient for history (EMS, parent, family, police, friend...)? What history was obtained from this source @ -No Did you review nursing and triage notes (agree or disagree)? Why? @ -I reviewed and agree with nursing and triage notes Were old charts reviewed (outside hosp., previous admission, EMS record, old EKG, old radiological studies, urgent care reports/EKG's, [place] health care facility records)? Report findings @ -No old charts were reviewed Differential Diagnosis (chest pain, altered mental status, abdominal pain women, abdominal pain men, vaginal bleeding, weakness, fever, dyspnea, syncope, headache, dizziness, GI bleed, back pain, seizure, CVA, palpatations, mental health, musculoskeletal)? @ -Differential Abdominal Pain Women: Appendicitis, Cholecystitis, diverticulosis, ischemic bowel, pancreatitis, hepatitis, UTI, gastroenteritis, AAA, incarcerated hernia, bowel obstruction, constipation, inflammatory bowel, hepatitis, peptic ulcer disease, splenic infarction, perforated viscus, vulvitis, ovarian torsion, PID, kidney stone, placenta abruption, this is not meant to be an all-inclusive list EKG interpreted by me (3pts min.). @ -None X-rays interpreted by me (1pt min.). @ -None done CT interpreted by me (1pt min.). @ -CT abd pelvis showed no evidence of nephrolithiasis U/S interpreted by me (1pt. min.). @ -None done What testing was considered but not performed or refused? (CT, X-rays, U/S, labs)? Why? @ -None What meds were considered but not given or refused? Why? @ -None Did you discuss the management of the patient with other professionals (pro fessionals i.e. , PA, [employer], lab, RT, psych nurse, social media campaign manager, outside cutter, teacher, nuclear officer, case monitor)? Give summary @ -No Was smoking cessation discussed for >3mins.? @ -No Was critical care preformed (if so, how long)? @ -No Were there social determinants of health that impacted care today? How? (Homelessness, low income, unemployed, alcoholism, drug addiction, transporta tion, low edu. Level, literacy, decrease access to med. care, skilled nursing, rehab)? @ -No Was there de-escalation of care discussed even if they declined (Discuss DNR or withdrawal of care, Hospice)? DNR status @ -No What co-morbidities impacted this encounter? (DM, HTN, Smoking, COPD, CAD, Cancer, CVA, ARF, Chemo, Hep., AIDS, mental health diagnosis, sleep apnea, morbid obesity)? @ -None Was patient admitted / discharged? Hospital course, mention meds given and route, prescriptions, significant lab abnormalities, going to OR and other pertinent info. @ -discharged, Patient presented to the emergency department for chief complaint of right flank pain x1 day. Patient has a history of kidney stones and states this feels similar. CBC within normal limits; CMP shows sodium 135, potassium 5.3 slightly hemolyzed; UA shows negative blood, negative nitrate, negative leukocyte esterase, 7 squamous epithelial cells. Lactic acid 0.8. CT abd/pelvis showed no evidence of nephrolithiasis, ovarian cyst smaller from prior CT. Patient advised on findings, take tylenol and motrin as needed for pain, and strict return precautions discussed. Patient stable at time of discharge. Case discussed with my attending, Dr. Hernandez. Undiagnosed new problem with uncertain prognosis? @ -No Drug Therapy requiring intensive monitoring for toxicity (Heparin, Nitro, Insulin, Cardizem)? @ -No Were any procedures done? @ -No Diagnosis/symptom? @ -Flank pain Acute, or Chronic, or Acute on Chronic? @ -acute Uncomplicated (without systemic symptoms) or Complicated (systemic symptoms)? @ -Uncomplicated Side effects of treatment? @ -No Exacerbation, Progression, or Severe Exacerbation? @ -No Poses a threat to life or bodily function? How? (Chest pain, USA, GA, pneumonia, PE, COPD, DKA, ARF, appy, cholecystitis, CVA, Diverticulitis, Homicidal, Suicidal, threat to staff... and all critical care pts) @ -No - Lab Data Result diagrams: 11/30/22 19:00 11/30/22 19:00 Lab Results 11/30/22 11/30/22 11/30/22 Range/Units 17:52 19:00 19:00 WBC 8.1 (3.8-10.6) k/uL RBC 4.08 (3.80-5.40) m/uL Hgb 12.8 (11.4-16.0) gm/dL Hct 39.4 (34.0-46.0) % MCV 96.8 (80.0-100.0) fL MCH 31.5 (25.0-35.0) pg MCHC 32.6 (31.0-37.0) g/dL RDW 12.5 (11.5-15.5) % Plt Count 264 (150-450) k/uL MPV 8.6 Neutrophils % 50 % Lymphocytes % 40 % Monocytes % 5 % Eosinophils % 2 % Basophils % 1 % Neutrophils # 4.1 (1.3-7.7) k/uL Lymphocytes # 3.2 (1.0-4.8) k/uL Monocytes # 0.4 (0-1.0) k/uL Eosinophils # 0.2 (0-0.7) k/uL Basophils # 0.0 (0-0.2) k/uL Sodium 135 L (137-145) mmol/L Potassium 5.3 H (3.5-5.1) mmol/L Chloride 106 (98-107) mmol/L Carbon Dioxide 18 L (22-30) mmol/L Anion Gap 11 mmol/L BUN 15 (7-17) mg/dL Creatinine 0.47 L (0.52-1.04) mg/dL Est GFR (CKD-EPI)AfAm >90 (>60 ml/min/1.73 sqM) Est GFR (CKD-EPI)NonAf >90 (>60 ml/min/1.73 sqM) Glucose 81 (74-99) mg/dL Plasma Lactic Acid Elier (0.7-2.0) mmol/L Calcium 8.5 (8.4-10.2) mg/dL Total Bilirubin 1.0 (0.2-1.3) mg/dL AST 34 (14-36) U/L ALT 41 H (4-34) U/L Alkaline Phosphatase 67 (38-126) U/L Total Protein 7.1 (6.3-8.2) g/dL Albumin 4.1 (3.5-5.0) g/dL Amylase 47 (30-110) U/L Lipase 60 (23-300) U/L Urine Color Light Yellow Urine Appearance Cloudy H (Clear) Urine pH 5.5 (5.0-8.0) Ur Specific Burton 1.007 (1.001-1.035) Urine Protein Negative (Negative) Urine Glucose (UA) Negative (Negative) Urine Ketones Negative (Negative) Urine Blood Negative (Negative) Urine Nitrite Negative (Negative) Urine Bilirubin Negative (Negative) Urine Urobilinogen <2.0 (<2.0) mg/dL Ur Leukocyte Esterase Moderate H (Negative) Urine RBC 1 (0-5) /hpf Urine WBC 3 (0-5) /hpf Ur Squamous Epith Cells 7 H (0-4) /hpf Hyaline Casts 1 (0-2) /lpf Urine Mucus Rare H (None) /hpf 07 Range/Units 20:03 WBC (3.8-10.6) k/uL RBC (3.80-5.40) m/uL Hgb (11.4-16.0) gm/dL Hct (34.0-46.0) % MCV (80.0-100.0) fL MCH (25.0-35.0) pg MCHC (31.0-37.0) g/dL RDW (11.5-15.5) % Plt Count (150-450) k/uL MPV Neutrophils % % Lymphocytes % % Monocytes % % Eosinophils % % Basophils % % Neutrophils # (1.3-7.7) k/uL Lymphocytes # (1.0-4.8) k/uL Monocytes # (0-1.0) k/uL Eosinophils # (0-0.7) k/uL Basophils # (0-0.2) k/uL Sodium (137-145) mmol/L Potassium (3.5-5.1) mmol/L Chloride (98-107) mmol/L Carbon Dioxide (22-30) mmol/L Anion Gap mmol/L BUN (7-17) mg/dL Creatinine (0.52-1.04) mg/dL Est GFR (CKD-EPI)AfAm (>60 ml/min/1.73 sqM) Est GFR (CKD-EPI)NonAf (>60 ml/min/1.73 sqM) Glucose (74-99) mg/dL Plasma Lactic Acid Elier 0.8 (0.7-2.0) mmol/L Calcium (8.4-10.2) mg/dL Total Bilirubin (0.2-1.3) mg/dL AST (14-36) U/L ALT (4-34) U/L Alkaline Phosphatase (38-126) U/L Total Protein (6.3-8.2) g/dL Albumin (3.5-5.0) g/dL Amylase (30-110) U/L Lipase (23-300) U/L Urine Color Urine Appearance (Clear) Urine pH (5.0-8.0) Ur Specific Burton (1.001-1.035) Urine Protein (Negative) Urine Glucose (UA) (Negative) Urine Ketones (Negative) Urine Blood (Negative) Urine Nitrite (Negative) Urine Bilirubin (Negative) Urine Urobilinogen (<2.0) mg/dL Ur Leukocyte Esterase (Negative) Urine RBC (0-5) /hpf Urine WBC (0-5) /hpf Ur Squamous Epith Cells (0-4) /hpf Hyaline Casts (0-2) /lpf Urine Mucus (None) /hpf Disposition Clinical Impression: Right flank pain Disposition: HOME SELF-CARE Condition: Stable Instructions (If sedation given, give patient instructions): Flank Pain (ED) Additional Instructions: Please follow up with your primary care provider. Return to the emergency department for new or worsening symptoms. Is patient prescribed a controlled substance at d/c from ED?: No Referrals: Thierry Mcintosh MD [Primary Care Provider] - 1-2 days Time of Disposition: 21:10
[2022-11-30 19:18] LABS: Basophils % (A) 1 %; Eosinophils # (A) 0.2 k/uL (0-0.7); Eosinophils % (A) 2 %; HCT 39.4 % (34.0-46.0); HGB 12.8 gm/dL (11.4-16.0); Lymphocytes # (A) 3.2 k/uL (1.0-4.8); Lymphocytes % (A) 40 %; MCH 31.5 pg (25.0-35.0); MCHC 32.6 g/dL (31.0-37.0); MCV 96.8 fL (80.0-100.0); Mean Platelet Volume 8.6; Monocytes # (A) 0.4 k/uL (0-1.0); Monocytes % (A) 5 %; Neutrophils # (A) 4.1 k/uL (1.3-7.7); Neutrophils % (A) 50 %; Platelet Count 264 k/uL (150-450); RBC 4.08 m/uL (3.80-5.40); RDW 12.5 % (11.5-15.5); WBC 8.1 k/uL (3.8-10.6)
[2022-11-30 19:29] LABS: ALT 41 U/L (4-34); African American GFR (CKD) >90 (>60 ml/min/1.73 sqM); Amylase 47 U/L (30-110); Anion Gap 11 mmol/L; Blood Urea Nitrogen 15 mg/dL (7-17); Calcium 8.5 mg/dL (8.4-10.2); Carbon Dioxide 18 mmol/L (22-30); Chloride 106 mmol/L (98-107); Glucose 81 mg/dL (74-99); Lipase 60 U/L (23-300); Non-African American GFR(CKD) >90 (>60 ml/min/1.73 sqM); Sodium 135 mmol/L (137-145)
[2022-11-30 19:30] LABS: Albumin 4.1 g/dL (3.5-5.0); Potassium 5.3 mmol/L (3.5-5.1); Total Protein 7.1 g/dL (6.3-8.2)
[2022-11-30 19:31] LABS: AST 34 U/L (14-36); Alkaline Phosphatase 67 U/L (38-126)
--- NOTE | 2022-11-30 19:53 | CT ---
EXAMINATION TYPE: CT abdomen pelvis wo con CT DLP: 1048.4 mGycm, Automated exposure control for dose reduction was used. DATE OF EXAM: 11/30/2022 7:37 PM COMPARISON: CT abdomen pelvis most recent from 10/17/2021 CLINICAL INDICATION:Female, 52 years old with history of rt flank pain; rt flank pain TECHNIQUE: Axial CT of the abdomen and pelvis. Sagittal and coronal reformats were created on a [employer] workstation. Contrast used: mL of , (none if empty) Oral contrast used: without Oral Contrast (none if empty) FINDINGS: LOWER CHEST: Unremarkable ABDOMEN LIVER: Unremarkable GALLBLADDER AND BILE DUCTS: The gallbladder surgically absent. PANCREAS: Unremarkable. SPLEEN: Unremarkable. ADRENAL GLANDS: Unremarkable. KIDNEYS AND URETERS: No evidence of hydronephrosis or renal calculus. The ureters are unremarkable. PELVIS BLADDER: Unremarkable REPRODUCTIVE: Intrauterine device seen within the endometrium. LEFT ovarian cyst has decreased in siz e now measuring 1.6 cm. ABDOMEN & PELVIS STOMACH AND BOWEL: No evidence of bowel obstruction. Large stool burden throughout the colon. The wellington endix is normal. PERITONEUM/RETROPERITONEUM: No evidence of pneumoperitoneum or free fluid. VASCULATURE: No evidence of aortic aneurysm. MUSCULOSKELETAL: No acute osseous abnormalities LYMPH NODES: No gross evidence for lymphadenopathy. SOFT TISSUE/ABDOMINAL WALL: Fat-containing inguinal hernias bilaterally. Fat-containing umbilical her edi. IMPRESSION: 1. No evidence for acute abdominal process. The appendix is normal. No obstructive uropathy or renal calculus visualized. 2. IUD device in appropriate position. 3. Left ovarian cyst now measuring 1.6 cm in size.
[2022-11-30] MEDS ORDERED: KETOROLAC 15 MG/ML 1 ML VIAL IVP STA (20:23)
[2022-11-30 21:20] VITALS: BP 130/65; PULSE 85; RESP 16
== END 2022-11-30 21:19 | disposition home or self-care (01) ==
LOC: EC 17:23
DX: N83.202 Unspecified ovarian cyst, left side (principal); J45.909 Unspecified asthma, uncomplicated; Z87.891 Personal history of nicotine dependence
CPT/HCPCS: 36415; 80053; 82150; 83605; 83690; 85025; 81001; 74176; 99284; 96374; J1885

== ENCOUNTER → 2023-01-29 | Outpatient (CLI) | payer OTHER ==
[2023-01-29 10:48] LABS: Basophils # (A) 0.07 X 10*3/uL (0.00-0.10); Eosinophils # (A) 0.15 X 10*3/uL (0.04-0.35); Eosinophils % (A) 2.1 %; HGB 12.9 d/dL (12.0-15.0); Lymphocytes # (A) 2.75 X 10*3/uL (0.90-5.00); Lymphocytes % (A) 38.8 %; MCH 30.2 pg (27.0-32.0); MCHC 32.3 d/dL (32.0-37.0); MCV 93.7 FL (80.0-97.0); Mean Platelet Volume 10.6 FL (9.5-12.2); Monocytes # (A) 0.57 X 10*3/uL (0.20-1.00); NRBC Per 100 WBC 0 X 10*3/uL (0.00-0.01); Neutrophils # (A) 3.52 X 10*3/uL (1.80-7.70); Neutrophils % (A) 49.7 %; Platelet Count 337 X 10*3/uL (140-440); RBC 4.27 X 10*6/uL (4.10-5.20); RDW 13.1 % (11.5-14.5); WBC 7.09 X 10*3/uL (4.50-10.00)
[2023-01-29 11:01] LABS: BUN/Creat Ratio 17.57 Ratio (12.00-20.00); Blood Urea Nitrogen 12.3 mg/dL (9.0-27.0); Calcium 9.6 mg/dL (8.7-10.3); Carbon Dioxide 24.8 mmol/L (21.6-31.8); Chloride 105 mmol/L (96-109); Glucose 83 mg/dL (70-110); Potassium 4.7 mmol/L (3.5-5.5); Sodium 139 mmol/L (135-145)
== END | disposition home or self-care (01) ==
LOC: LABWHC1 07:15
PROVIDERS: ATTEND Orthopaedic Surgery Hand Surgery
DX: Z01.812 Encounter for preprocedural laboratory examination (principal); M18.11 Unilateral primary osteoarthritis of first carpometacarpal joint, right hand
CPT/HCPCS: 36415; 80048; 85025

== ENCOUNTER → 2023-11-29 | Outpatient (CLI) | payer OTHER ==
[2023-11-29 15:41] LABS: Hepatitis A Antibody IgM Nonreactive (Nonreactive); Hepatitis B Core IgM Nonreactive (Nonreactive); Hepatitis B Surface Antigen Nonreactive (Nonreactive); Hepatitis C IgG Antibody Nonreactive (Nonreactive)
[2023-11-29 16:12] LABS: ALT 15 U/L (8-44); AST 11 U/L (13-35); Albumin 4.3 g/dL (3.8-4.9); Albumin/Globulin Ratio 1.59 Ratio (1.60-3.17); Alkaline Phosphatase 64 U/L (41-126); BUN/Creat Ratio 19.71 Ratio (12.00-20.00); Blood Urea Nitrogen 13.8 mg/dL (9.0-27.0); Calcium 9.2 mg/dL (8.7-10.3); Carbon Dioxide 21.8 mmol/L (21.6-31.8); Chloride 106 mmol/L (96-109); Globulin 2.7 g/dL (1.6-3.3); Glucose 87 mg/dL (70-110); Potassium 4.1 mmol/L (3.5-5.5); Sodium 139 mmol/L (135-145); Total Bilirubin 0.5 mg/dL (0.3-1.2)
[2023-11-29 17:01] LABS: Basophils # (A) 0.07 X 10*3/uL (0.00-0.10); Basophils % (A) 0.7 %; Eosinophils # (A) 0.06 X 10*3/uL (0.04-0.35); Eosinophils % (A) 0.6 %; HCT 41.8 % (37.2-46.3); HGB 13.5 g/dL (12.0-15.0); Lymphocytes % (A) 34.9 %; MCH 30.1 pg (27.0-32.0); MCHC 32.3 g/dL (32.0-37.0); MCV 93.3 FL (80.0-97.0); Mean Platelet Volume 11.3 FL (9.5-12.2); Monocytes # (A) 0.81 X 10*3/uL (0.20-1.00); Monocytes % (A) 7.6 %; NRBC Per 100 WBC 0 X 10*3/uL (0.00-0.01); Neutrophils # (A) 5.91 X 10*3/uL (1.80-7.70); Neutrophils % (A) 55.8 %; Platelet Count 314 X 10*3/uL (140-440); RBC 4.48 X 10*6/uL (4.10-5.20); RDW 12.7 % (11.5-14.5); WBC 10.59 X 10*3/uL (4.50-10.00)
== END | disposition home or self-care (01) ==
LOC: LABWHC1 10:34
PROVIDERS: ATTEND Nurse Practitioner Family
DX: K76.0 Fatty (change of) liver, not elsewhere classified (principal)
CPT/HCPCS: 36415; 80053; 80074; 81596; 85025

== ENCOUNTER → 2024-02-02 | Outpatient (CLI) | payer OTHER ==
--- NOTE | 2024-02-05 10:59 | MR ---
EXAMINATION TYPE: MR lumbar spine wo con DATE OF EXAM: 02/02/2024 COMPARISON: None HISTORY: FX, Low back pain into left buttocks/thigh CONTRAST: 0 mL intravenous Gadavist. TECHNIQUE: Multiplanar, multisequence images of the lumbar spine were acquired. FINDINGS: L5-S1: Disc desiccation is present. No significant loss of disc height. No significant disc bulge or disc herniation. No spinal canal stenosis. No foraminal stenosis. L4-L5: No significant disc bulge or disc herniation. No spinal canal stenosis. No foraminal stenosi s. Facet hypertrophy is present. L3-L4: No significant disc bulge or disc herniation. No spinal canal stenosis. No foraminal stenosi s. L2-L3: No significant disc bulge or disc herniation. No spinal canal stenosis. No foraminal stenosi s. L1-L2: No significant disc bulge or disc herniation. No spinal canal stenosis. No foraminal stenosi s. T12-L1: No significant disc bulge or disc herniation. No spinal canal stenosis. No foraminal stenos is. Cord terminates at the L1 vertebral body heights and signal. IMPRESSION: 1. Mild disc desiccation L5-S1. 2. Facet hypertrophy L4-5. [facility], , 02/05/2024 10:56 AM
== END | disposition home or self-care (01) ==
LOC: RADMRIMAIN 12:41
PROVIDERS: ATTEND Orthopaedic Surgery
DX: M47.816 Spondylosis without myelopathy or radiculopathy, lumbar region (principal); M51.37 Other intervertebral disc degeneration, lumbosacral region
CPT/HCPCS: 72148

== ENCOUNTER → 2024-04-06 | Outpatient (CLI) | payer OTHER ==
[2024-04-06 12:30] VITALS: BP 126/85; PULSE 78; RESP 19; TEMP 97.5
--- NOTE | 2024-04-06 14:20 | P.PAINPG ---
PQRS Measure Charge Sheet Comment: HISTORY OF PRESENT ILLNESS: A 54 yr old female w male living specialist at side as a referral from Dr Marley presents today w severe and chronic LBP > 3 mo secondary to radiculopathy, spondylosis and facet arthropathy without myelopathy for evaluation. Pt states pain level is provoked at 5-6 /10 in intensity, constant, localized in the lumbar spine, predominantly axial, sharp in character w occasional shooting pain towards the LLE. Pain is provoked by sitting/ standing for periods > 30 min. Pain is alleviated by PT x 6 wks which ended in Jan 2024, physician guided home exercises every other day since Jan 2024, heat, medications (Ibu), repositioning and rest . Oswestry axial pain score at 29. PMH: OA, Asthma, GERD, Nephrolithiasis, Ovarian Cyst PSH: R Thumb Suture [place] x2 (2022), Cholecystectomy, Hernia Repair, Tonsillectomy SH: Former tobacco user, Occ ETOH use, No illicit drug use FH: Mo- No Reported History, Bro- [place] All: See list Meds: See list REVIEW OF ORGAN SYSTEMS: CONSTITUTIONAL: No fevers or chills. No recent weight loss. NEUROLOGICAL: + numbness and tingling along the distal extremities. No seizure disorders or headaches. MUSCULOSKELETAL: + pain PSYCHIATRIC: Denies current depression or suicidal thoughts. Physical Examinations : Constitutional : Cooperative , not in acute distress . Neurologic : Cranial nerve II to XII intact. No focal neurological deficits. Psychiatric : alert & oriented x 3. Matching mood & appropriate affect. Judgment & insight intact. Musculoskeletal : Cervical Spine Motor strength in the deltoid and biceps: Normal right side. Normal Left side Motor strength biceps and the wrist extensors: Normal right side . Normal left side Motor strength in the triceps muscle: Normal right side. Normal left side Deep tendon reflexes: Normal at the biceps. Normal at Brachioradialis. Normal at triceps Vertebral body tenderness to deep palpation over Cervical facet loading test: positive bilaterally Spurling test: positive bilaterally Neck distraction test: positive bilaterally Sofia sign: positive bilaterally Lumbar spine Motor strength lower extremities ,thigh and legs 5/5 Right side , 5/5 Left side Deep tendon reflexes : Normal Knee Jerk. Normal Ankle Jerk Vertebral body tenderness over L4 Nava Test positive L> R L4-L5 Lumbar facet Loading Test: positive Right / positive Left Range of motion of the lumbar spine Flexion 30 degrees, extension 10 degrees Straight Leg Raise test: Left/ Right positive at degrees Mora test: positive right / positive left. Severe tenderness over the Sacroiliac joint on the Right / Left sides Gaenslen test: positive bilaterally Seated flexion test: positive bilaterally. Sacral spine : Severe tenderness over the Sacroiliac j oint: right side / left side Range of motion: Flexion of the lumbar spine <60 degrees Range of motion: Extension of the lumbar spine <20 degrees Gaenslen's Test positive Mora test: positive right side / left side Thigh Thrust Test Sacral Thrust Test Imaging: MRI non contrast lumbar spine from 02/02/24 reviewed Assessment/ Plan : L4-L5 facet arthropathy, L5-S1 disc dessication Recommendation of SRINIVAS L4-L5 #1. Risks, benefits of procedure discussed and patient verbalized understanding. Admits to anti- coagulant use or medical history of diabetes. Protocol for discontinuation/ continuation of medications manuel procedure discussed. All questions answered. I have spent greater than 30 minutes on patient care today. Dr Christina was available by phone for the evaluation of this patient. The time was used to review the medical records including relevant urine studies and Prescription history (MAPs), review of the available imaging, evaluation and examination of the patient, coordination of care with the medical staff and if applicable referring physicians, as well as creation of the medical record PQRS Narrative: Smoking Status Former smoker Home Medications: Ambulatory Orders Diclofenac Sodium [Voltaren] 75 mg PO BID 04/18/22 Ketorolac [Toradol] 10 mg PO Q8HR #15 tab 04/18/22 Ondansetron Odt [Zofran Odt] 4 mg PO Q8HR PRN #10 tab 10/17/22 DULoxetine HCL [Cymbalta] 60 mg PO DAILY 02/05/23 HYDROcodone/APAP 5-325MG [[place] 5-325] 1 tab PO Q6HR PRN 3 Days #24 tab 02/10/23 Controlled Substance Measures - Controlled Substance Measures Is patient prescribed a controlled substance at discharge?: No
== END ==
LOC: PNWHC3 12:12
PROVIDERS: ATTEND Specialist
DX: M43.16 Spondylolisthesis, lumbar region (principal); M47.26 Other spondylosis with radiculopathy, lumbar region; Z87.891 Personal history of nicotine dependence
CPT/HCPCS: 99211

== ENCOUNTER 2024-05-02 12:28 | Day surgery (SDC) | payer OTHER ==
[2024-05-02] MEDS ORDERED: LACTATED RINGERS 1,000 ML IV SCH (12:38)
[2024-05-02 12:58] VITALS: RESP 16; TEMP 97.7
[2024-05-02] MEDS ORDERED: IOPAMIDOL M200 10 ML VIAL ONE (13:07)
[2024-05-02] MEDS ORDERED: methylPREDNISolone ACETATE 80 MG/ML 1 ML VIAL ONE (13:07)
--- NOTE | 2024-05-02 13:16 | P.PCN ---
Date of Procedure: 05/02/24 Procedure(s) Performed: PREOPERATIVE DIAGNOSIS: 1- Lumbar Degenerative Disc Diseases 2-Lumbar spondylosis with Facet arthropathy without myelopathy. 3-lumbar radiculopathy POSTOPERATIVE DIAGNOSIS: 1-lumbar degenerative disc disease. 2-lumbar spondylosis with facet arthropathy without myelopathy. 3-lumbar radiculopathy PROCEDURE 1. Lumbar epidural steroid injection under fluoroscopic guidance at the L4-5 level. (Fluoroscopy imaging was available in radiology department) 2. Lumbar epidurogram. ANESTHESIA: Lidocaine 1% 3 and then only. EBL: Minimal PROCEDURE INDICATION: The patient with low back pain and radiculitis symptoms unresponsive to conservative treatment. Fluoroscopy was used to optimize visualization of the needle placement and to maximize safety. PROCEDURE DESCRIPTION / TECHNIQUE: The patient was seen and identified in the preoperative area. Risks, benefits, complications including but not limited to infections ,bleeding ,allergic reaction to the medications ,nerve damage and not complete pain releife , and alternatives were discussed with the patient. The patient agreed to proceed with the procedure and signed the consent, and vital signs were stable. Patient was taken to the OR and time out was completed. The patient was placed in the prone position on procedure table and a pillow was placed under the abdomen to reduce lumbar lordosis. The lumbosacral area was prepped and draped in the usual sterile fashion.ere closely monitored during the procedure. Vital signs was monitered during the entire procedure. Using anterior-posterior fluoroscopy, the L4-5 interlaminar space was identified and the skin over this site was marked and then infiltrated with 1% lidocaine subcutaneously. Subsequently, a 18-gauge 6 inches long Tuohy epidural needle was inserted and advanced toward the epidural space using the ``Loss of resistance technique and guided by AP and lateral fluoroscopy. The correct needle position in the epidural space was verified with the injection of 2 mL of the water soluble contrast dye Isovue 200 contrast and observing an excellent epidurogram with the epidural spread of the dye, after negative aspiration for blood and CSF and in the absence of paresthesias. Again after negative aspiration, a 6 ml mixture containing 80 mg of Depo-medrol ( Preservetive Free ), and 2 ml of preservative free Normal Saline, and 2 ml of preservative free lidocaine 1% solution was injected and a washout of epidurogram was seen. Needle was withdrawn intact, skin was cleansed, and bandages were applied. COMPLICATIONS: None DISPOSITION / PLANS: The patient was placed in a supine position and transferred to the recovery area in a stable condition for observation. There was no evidence of lower extremity motor or sensory deficit after the procedure. Patient was discharged from the recovery room after meeting discharge criteria. Home discharge instructions were given to the patient by the staff. The patient was reexamined prior to discharge. The patient will schedule a follow up in the clinic in 2-4 weeks.
[2024-05-02 13:43] VITALS: BP 139/77; PULSE 73
--- NOTE | 2024-05-02 15:17 | FL ---
EXAMINATION TYPE: FL guided pain mgmt statistic DATE OF EXAM: 05/02/2024 1:28 PM COMPARISON: Pre Operative Images if available both CT/MRI or plain film CLINICAL INDICATION: Female, 54 years old with history of LESI; TECHNIQUE: FL guided pain mgmt statistic, multiple fluoroscopic images provided for procedure. Total fluoroscopy time: 6.6 seconds Total submitted images to PACS: 1 DAP: [id number] mGym2 Gycm2 uGym2 cGycm2 or equivalent. FINDINGS: Fluoroscopic images during injection for pain management demonstrate multilevel degeneration changes throughout the spine. No evidence for fracture. No acute process identified. IMPRESSION: 1. No evidence for intraoperative complication. 2. Please see the operative/procedural note for further details. [facility], Workstation: [facility], 05/02/2024 3:15 PM
== END 2024-05-02 13:45 | disposition home or self-care (01) ==
LOC: ORPAIN 12:28
PROVIDERS: ATTEND Specialist
DX: M47.26 Other spondylosis with radiculopathy, lumbar region (principal)
CPT/HCPCS: 62323; 81025

== ENCOUNTER → 2024-06-01 | Outpatient (CLI) | payer OTHER ==
[2024-06-01 12:58] VITALS: BP 147/92; PULSE 84; RESP 16; TEMP 98
--- NOTE | 2024-06-01 14:31 | P.PAINPG ---
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 Pt states she experienced 80 % pain relief x 4 wks s/p procedure. Pt states pain level is provoked at 1 /10 in intensity, constant, localized in the lumbar spine, predominantly axial, sharp in character w occasional shooting pain towards the LLE. Pain is provoked by sitting/ standing for periods > 30 min. Pain is alleviated by PT x 6 wks which ended in Jan 2024, physician guided home exercises every other day since Jan 2024, heat, medications, repositioning and rest . Interventional procedures include SRINIVAS L4-L5 x1 Medications include Ibu REVIEW OF ORGAN SYSTEMS: CONSTITUTIONAL: No fevers or chills. No recent weight loss. NEUROLOGICAL: + numbness and tingling along the distal extremities. No seizure disorders or headaches. MUSCULOSKELETAL: + pain PSYCHIATRIC: Denies current depression or suicidal thoughts. Physical Examinations : Constitutional : Cooperative , not in acute distress . Neurologic : Cranial nerve II to XII intact. No focal neurological deficits. Psychiatric : alert & oriented x 3. Matching mood & appropriate affect. Judgment & insight intact. Musculoskeletal : Cervical Spine Motor strength in the deltoid and biceps: Normal right side. Normal Left side Motor strength biceps and the wrist extensors: Normal right side . Normal left side Motor strength in the triceps muscle: Normal right side. Normal left side Deep tendon reflexes: Normal at the biceps. Normal at Brachioradialis. Normal at triceps Vertebral body tenderness to deep palpation over Cervical facet loading test: positive bilaterally Spurling test: positive bilaterally Neck distraction test: positive bilaterally Sofia sign: positive bilaterally Lumbar spine Motor strength lower extremities ,thigh and legs 5/5 Right side , 5/5 Left side Deep tendon reflexes : Normal Knee Jerk. Normal Ankle Jerk Vertebral body tenderness over L4 Nava Test positive L> R L4-L5 Lumbar facet Loading Test: positive Right / positive Left Range of motion of the lumbar spine Flexion 30 degrees, extension 10 degrees Straight Leg Raise test: Left/ Right positive at degrees Mora test: positive right / positive left. Severe tenderness over the Sacroiliac joint on the Right / Left sides Gaenslen test: positive bilaterally Seated flexion test: positive bilaterally. Sacral spine : Severe tenderness over the Sacroiliac joint: right side / left side Range of motion: Flexion of the lumbar spine <60 degrees Range of motion: Extension of the lum bar spine <20 degrees Gaenslen's Test positive Mora test: positive right side / left side Thigh Thrust Test Sacral Thrust Test Imaging: MRI non contrast lumbar spine from 02/02/24 reviewed Assessment/ Plan : L4-L5 facet arthropathy, L5-S1 disc dessication Will manage residual pain and may RTC on an as needed basis. All questions answered. I have spent greater than 30 minutes on patient care today. Dr Christina was available by phone for the evaluation of this patient. The time was used to review the medical records including relevant urine studies and Prescription history (MAPs), review of the available imaging, evaluation and examination of the patient, coordination of care with the medical staff and if applicable referring physicians, as well as creation of the medical record - Pain Location Back Non-Pharmacological Interventions: Position/Reposition Pharmacological Interventions: Discuss Pain Med Options PQRS Narrative: Smoking Status Former smoker Narcotic Agreement Date Signed 04/06/24 Hx Alcohol Use (MH) Yes: social / casual Home Medications: Ambulatory Orders DULoxetine HCL [Cymbalta] 60 mg PO DAILY 02/05/23 Hydroxychloroquine Sulfate [Plaquenil] 200 mg PO DAILY 05/01/24 Nexium(Unk) 1 tab PO DAILY 05/01/24 Ibuprofen 800 mg PO Q8H PRN 06/01/24 Controlled Substance Measures - Controlled Substance Measures Is patient prescribed a controlled substance at discharge?: No
== END ==
LOC: PNWHC3 12:16
PROVIDERS: ATTEND Specialist
DX: M51.379 Other intervertebral disc degeneration, lumbosacral region without mention of lumbar back pain or lower extremity pain (principal); M47.816 Spondylosis without myelopathy or radiculopathy, lumbar region; Z87.891 Personal history of nicotine dependence
CPT/HCPCS: 99211

== ENCOUNTER 2024-07-04 17:34 | Observation (INO) | payer OTHER ==
--- NOTE | 2024-07-04 18:11 | ED ---
Chest Pain HPI - General Source: patient Mode of arrival: ambulatory Limitations: no limitations <Adam Joy - Last Filed: 07/04/24 18:11> - General Source: patient, RN notes reviewed, old records reviewed <Keanu Webber - Last Filed: 07/04/24 23:09> - General Chief Complaint: Chest Pain Stated Complaint: Chest pains Time Seen by Provider: 07/04/24 18:11 - History of Present Illness Initial Comments: 54-year-old female presenting with chief complaint of chest pain. Located on the left side of the chest with radiation to the left shoulder. Started about an hour ago. She is complaining of heartburn and nausea. (Adam Joy) Patient is a 54-year-old female who presents emergency department complaining of left-sided chest pain. Has been ongoing since late afternoon. Was worked up as a quick note. Has a history of asthma, GERD. States this is different than her symptoms. Has a history of obesity, as well as family history of heart issues. States pain does not radiate. Denies any associated nausea or vomiting or sweating. No other acute complaints. Presents for further evaluation at this time. In the waiting room, did endorse radiation of the left shoulder and states this was momentary and has not had that persistently. States pain is intermittent with no known palliative or provocative factors. (Keanu Webber) - Related Data Home Medications Medication Instructions Recorded Confirmed DULoxetine HCL [Cymbalta] 60 mg PO DAILY 02/05/23 06/01/24 Hydroxychloroquine Sulfate 200 mg PO DAILY 05/01/24 06/01/24 [Plaquenil] Nexium(Unk) 1 tab PO DAILY 05/01/24 06/01/24 Ibuprofen 800 mg PO Q8H PRN 06/01/24 06/01/24 Allergies Allergy/AdvReac Type Severity Reaction Status Date / Time No Known Allergies Allergy Verified 07/04/24 17:47 Review of Systems ROS Other: All systems not noted in ROS Statement are negative. <Adam Joy - Last Filed: 07/04/24 18:11> ROS Other: All systems not noted in ROS Statement are negative. <Keanu Webber - Last Filed: 07/04/24 23:09> ROS Statement: Those systems with pertinent positive or pertinent negative responses have been documented in the HPI. Review of Systems: CONST: Denies fever EYES: Denies blurry vision ENT: Denies nasal congestion C/V: Endorses chest pain RESP: Denies shortness of breath GI: Denies abdominal pain : Denies dysuria SKIN: Denies rash. MSK: Denies joint pain. NEURO: Denies headache (Keanu Webber) EKG Findings - EKG Comments: EKG Findings:: 12-lead Electrocardiogram Interpretation Note. EKG was reviewed and interpreted by myself. 12-lead ECG performed at 1820 is interpreted by me as revealing normal sinus rhythm at a rate of 75 beats per minute. [place] is normal. DC interval is 149 ms, QRS durations 85 ms, QTc is 397 ms.. There were no ST or T wave abnormalities to suggest myocardial ischemia or injury. R wave progression across the precordium was satisfactory. By my interpretation this EKG is non-diagnostic for acute ischemia. 12-lead Electrocardiogram Interpretation Note. EKG was reviewed and interpreted by myself. 12-lead ECG performed at 2140 is interpreted by me as revealing normal sinus rhythm at a rate of 68 beats per minute. [place] is normal. DC interval is 148 ms, QRS duration is 93 ms, QTc is 402 ms.. There were no ST or T wave abnormalities to suggest myocardial ischemia or injury. R wave progression across the precordium was satisfactory. By my interpretation this EKG is non-diagnostic for acute ischemia. - EKG Results: EKG: interpreted by ERMD <Keanu Webber - Last Filed: 07/04/24 23:09> Past Medical History Past Medical History: Asthma, GERD/Reflux, GI Bleed, Osteoarthritis (OA) Additional Past Medical History / Comment(s): ,hx kidney stones History of Any Multi-Drug Resistant Organisms: None Reported Past Surgical History: Cholecystectomy, Hernia Repair, Tonsillectomy Additional Past Surgical History / Comment(s): ovarian cyst, Past Anesthesia/Blood Transfusion Reactions: No Reported Reaction Past Psychological History: No Psychological Hx Reported Smoking Status: Former smoker Past Alcohol Use History: None Reported Past Drug Use History: None Reported - Past Family History Mother Family Medical History: No Reported History Brother(s) Family Medical History: Cancer <Adam Joy - Last Filed: 07/04/24 18:11> General Exam Limitations: no limitations <Adam Joy - Last Filed: 07/04/24 18:11> <Keanu Webber - Last Filed: 07/04/24 23:09> - General Exam Comments Initial Comments: Visual Physical Exam Vital signs reviewed General: Well-appearing, nontoxic, no acute distress. Head: Normocephalic, atraumatic Eyes: PERRLA, EOMI ENT: Airway patent Chest: Nonlabored breathing Skin: No visual rash, normal skin tone Neuro: Alert and oriented 3 Musculoskeletal: No gross abnormalities (Adam Joy) General: Appears in no acute distress. HEAD: Normal with no signs of head trauma. EYES: PERRLA, EOMI, conjunctiva normal, no discharge. ENT: Hearing grossly intact, normal oropharynx. RESPIRATORY: Clear breath sounds bilaterally. No wheezes, rales, or rhonchi. C/V: Regular rate and rhythm. S1 and S2 auscultated, no edema, peripheral pulses 2+ and intact throughout ABD: Abd is soft, nontender, nondistended EXT: Normal range of motion, no obvious deformity SKIN: No rashes or lesions observed on exposed skin. NEURO: Alert and oriented x 4. Cranial nerves II-XII intact. No focal sensory or strength deficits. (Keanu Webber) Course Vital Signs 07/04/24 07/04/24 17:45 21:58 Temperature 97.9 F Pulse Rate 85 75 Respiratory 20 17 Rate Blood Pressure 141/85 92/58 O2 Sat by Pulse 99 95 Oximetry Chest Pain [facility] <Adam Joy - Last Filed: 07/04/24 18:11> <Keanu Webber - Last Filed: 07/04/24 23:09> - MDM I performed the quick note portion of this visit, electronically signed Adam Joy PA-C (Adam Joy) Was pt. sent in by a medical professional or institution ([facility], OIL PAINTER, urgent care, hospital, or long term...) When possible be specific @ -No Did you speak to anyone other than the patient for history (EMS, parent, family, police, friend...)? What history was obtained from this source @ -No Did you review nursing and triage notes (agree or disagree)? Why? @ -I reviewed and agree with nursing and triage notes Were old charts reviewed (outside hosp., previous admission, EMS record, old EKG, old radiological studies, urgent care reports/EKG's, long term records)? Report findings @ -Compared today's EKG with EKG from February 2018 with no obvious significant change. Differential Diagnosis (chest pain, altered mental status, abdominal pain women, abdominal pain men, vaginal bleeding, weakness, fever, dyspnea, syncope, headache, dizziness, GI bleed, back pain, seizure, CVA, palpatations, mental health, musculoskeletal)? @ -Differential Chest Pain: Stable Angina, Unstable Angina, STEMI, NSTEMI Aortic Dissection, Pneumothorax, Musculoskeletal, Esophageal Spasm GERD, Cholecystitis, Pancreatitis, Zoster, this is not meant to be an all-inclusive list. EKG interpreted by me (3pts min.). @ -As above X-rays interpreted by me (1pt min.). @ -Chest x-ray reveals no obvious acute cardiopulmonary process. CT interpreted by me (1pt min.). @ -None done U/S interpreted by me (1pt. min.). @ -None done What testing was considered but not performed or refused? (CT, X-rays, U/S, labs)? Why? @ -None What meds were considered but not given or refused? Why? @ -None Did you discuss the management of the patient with other professionals (professionals i.e. , PA, OIL PAINTER, lab, RT, psych nurse, social science analyst, stone setter apprentice, teacher, corporate development officer, hospice case manager)? Give summary @ -Discussed with the admitting team, midlevel provider Dedra of [facility] who accepted the admission. Was smoking cessation discussed for >3mins.? @ -No Was critical care preformed (if so, how long)? @ -No Were there social determinants of health that impacted care today? How? (Homelessness, low income, unemployed, alcoholism, drug addiction, transportation, low edu. Level, literacy, decrease access to med. care, long term, rehab)? @ -No Was there de-escalation of care discussed even if they declined (Discuss DNR or withdrawal of care, Hospice)? DNR status @ -No What co-morbidities impacted this encounter? (DM, HTN, Smoking, COPD, CAD, Cancer, CVA, ARF, Chemo, Hep., AIDS, mental health diagnosis, sleep apnea, morbid obesity)? @ -None Was patient admitted / discharged? Hospital course, mention meds given and route, prescriptions, significant lab abnormalities, going to OR and other pertinent info. @ -Patient presents for chest pain. Originally seen as a quick note and all results returned while patient was in the waiting room. Patient states pain has been on and off again. Currently has it mildly present. Describes as a squeezing sensation. Patient given nitro which had no effect on the pain. Patient will be given morphine subsequently as well as IV fluids. She is given 324 mg of aspirin. Workup thus far negative for any obvious acute finding. Undetectable troponin. 2 EKGs within normal limits. Repeat troponin was undetectable as well. I discussed with the patient and due to her having continued symptoms despite no response to nitro, patient will be admitted for cardiac evaluation. Echo ordered. Cardiology consulted. Patient was in agreement this plan. I spoke with the admitting provider, VALERY Colmenares of [facility] who accepted the admission. Undiagnosed new problem with uncertain prognosis? @ -No Drug Therapy requiring intensive monitoring for toxicity (Heparin, Nitro, Insulin, Cardizem)? @ -No Were any procedures done? @ -No Diagnosis/symptom? @ -Chest pain Acute, or Chronic, or Acute on Chronic? @ -Acute Uncomplicated (without systemic symptoms) or Complicated (systemic symptoms)? @ -Complicated Side effects of treatment? @ -No Exacerbation, Progression, or Severe Exacerbation? @ -No Poses a threat to life or bodily function? How? (Chest pain, [place], MA, pneumonia, PE, COPD, DKA, ARF, appy, cholecystitis, CVA, Diverticulitis, Homicidal, Suicidal, threat to staff... and all critical care pts) @ -Possibly, yes (Keanu Webber) Disposition <Adam Joy - Last Filed: 07/04/24 18:11> Time of Disposition: 22:10 <Keanu Webber - Last Filed: 07/04/24 23:09> Clinical Impression: Chest pain Disposition: ADMITTED IP TO THIS HOSP Condition: Stable
[2024-07-04 18:41] LABS: Basophils # (A) 0.1 k/uL (0-0.2); Basophils % (A) 1 %; Eosinophils # (A) 0.2 k/uL (0-0.7); Eosinophils % (A) 3 %; HCT 42.1 % (34.0-46.0); HGB 13.9 gm/dL (11.4-16.0); Lymphocytes # (A) 3.6 k/uL (1.0-4.8); Lymphocytes % (A) 45 %; MCH 30.5 pg (25.0-35.0); MCHC 32.9 g/dL (31.0-37.0); MCV 92.5 fL (80.0-100.0); Monocytes # (A) 0.5 k/uL (0-1.0); Monocytes % (A) 6 %; Neutrophils # (A) 3.5 k/uL (1.3-7.7); Neutrophils % (A) 43 %; Platelet Count 290 k/uL (150-450); RBC 4.55 m/uL (3.80-5.40); RDW 12.6 % (11.5-15.5); WBC 8.1 k/uL (3.8-10.6)
[2024-07-04 18:50] LABS: ALT 23 U/L (4-34); AST 24 U/L (14-36); African American GFR (CKD) >90 (>60 ml/min/1.73 sqM); Albumin 4.2 g/dL (3.5-5.0); Alkaline Phosphatase 67 U/L (38-126); Anion Gap 10 mmol/L; Blood Urea Nitrogen 19 mg/dL (7-17); Calcium 9.4 mg/dL (8.4-10.2); Carbon Dioxide 23 mmol/L (22-30); Chloride 104 mmol/L (98-107); Glucose 89 mg/dL (74-99); Lipase 59 U/L (23-300); Magnesium 2.1 mg/dL (1.6-2.3); Non-African American GFR(CKD) >90 (>60 ml/min/1.73 sqM); Potassium 4.4 mmol/L (3.5-5.1); Sodium 137 mmol/L (137-145); Total Bilirubin 0.8 mg/dL (0.2-1.3); Total Protein 7.3 g/dL (6.3-8.2)
[2024-07-04 18:53] LABS: INR 0.9 (<1.2); Partial Thromboplastin Time 22.7 sec (22.0-30.0); Prothrombin Time 10.1 sec (10.0-12.5)
--- NOTE | 2024-07-04 19:03 | XR ---
EXAMINATION TYPE: XR chest 2V DATE OF EXAM: 07/04/2024 6:46 PM COMPARISON: Chest radiographs from 09/14/2021 CLINICAL INDICATION: Female, 54 years old with history of Chest Pain; TECHNIQUE: XR chest 2V Frontal and lateral views of the chest. FINDINGS: Lungs/Pleura: There is no evidence of pleural effusion, focal consolidation, or pneumothorax. Pulmonary vascularity: Unremarkable. Heart/mediastinum: Cardiomediastinal silhouette is unremarkable. Musculoskeletal: No acute osseous pathology. Other findings: None IMPRESSION: No acute cardiopulmonary disease/process. [facility], , 07/04/2024 7:01 PM
[2024-07-04] MEDS: ASPIRIN 81 MG PO STA (21:48)
[2024-07-04] MEDS: NITROGLYCERIN SL TABS 0.4 MG TAB SUBLINGUAL STA (21:49)
[2024-07-04] MEDS: SODIUM CHLORIDE 0.9% 1,000 ML IV STA (21:49)
[2024-07-04] MEDS ORDERED: NALOXONE 0.4 MG/ML 1 ML VIAL IV PRN (22:05)
[2024-07-04] MEDS: MORPHINE SULFATE 4 MG/ML SYRINGE IVP STA (23:17)
[2024-07-04] MEDS: SODIUM CHLORIDE 0.9% 1,000 ML IV SCH (23:30)
[2024-07-05] MEDS: HEPARIN SODIUM,PORCINE 5,000 UNIT/ML 1 ML VIAL SQ SCH (00:43)
[2024-07-05 02:41] LABS: Glucose,Whole Blood 124 mg/dL (70-110)
[2024-07-05] MEDS ORDERED: MAG HYDROX/AL HYDROX/SIMETH 30 ML CUP PO PRN (02:46)
[2024-07-05 03:33] LABS: ALT 22 U/L (4-34); AST 24 U/L (14-36); African American GFR (CKD) >90 (>60 ml/min/1.73 sqM); Albumin 3.5 g/dL (3.5-5.0); Alkaline Phosphatase 73 U/L (38-126); Anion Gap 8 mmol/L; Blood Urea Nitrogen 18 mg/dL (7-17); Calcium 9.1 mg/dL (8.4-10.2); Carbon Dioxide 23 mmol/L (22-30); Chloride 106 mmol/L (98-107); Glucose 136 mg/dL (74-99); Non-African American GFR(CKD) >90 (>60 ml/min/1.73 sqM); Potassium 3.9 mmol/L (3.5-5.1); Sodium 137 mmol/L (137-145); Total Bilirubin 0.8 mg/dL (0.2-1.3); Total Protein 6.3 g/dL (6.3-8.2)
[2024-07-05 03:46] LABS: Basophils # (A) 0.1 k/uL (0-0.2); Basophils % (A) 1 %; Eosinophils # (A) 0.2 k/uL (0-0.7); Eosinophils % (A) 3 %; HCT 38.4 % (34.0-46.0); HGB 12.5 gm/dL (11.4-16.0); Lymphocytes # (A) 3.7 k/uL (1.0-4.8); Lymphocytes % (A) 55 %; MCH 30.6 pg (25.0-35.0); MCHC 32.6 g/dL (31.0-37.0); MCV 93.8 fL (80.0-100.0); Mean Platelet Volume 8.3; Monocytes # (A) 0.4 k/uL (0-1.0); Monocytes % (A) 5 %; Neutrophils # (A) 2.2 k/uL (1.3-7.7); Neutrophils % (A) 33 %; Platelet Count 262 k/uL (150-450); RBC 4.09 m/uL (3.80-5.40); RDW 12.7 % (11.5-15.5); WBC 6.8 k/uL (3.8-10.6)
[2024-07-05] MEDS: ONDANSETRON 4 MG/2 ML VIAL IVP PRN (04:27)
--- NOTE | 2024-07-05 12:00 | P.CRDCN ---
History of Present Illness Consult date: 07/05/24 Consult reason: chest pain History of present illness: This is a 54-year-old female with past medical history of fibromyalgia, kidney stones, GERD, remote history of tobacco use and dependence. We have been asked to evaluate the patient for chest pain. Patient states at 4:30 in the afternoon yesterday, she developed chest pain that was a pressure type pain on the left side and then it went to her left shoulder and stopped. She also had some shortness of breath. She also had some nausea with this. She denies any lightheadedness or dizziness and no syncopal episodes. She denies any previous cardiac history and no previous cardiac workup. She does not have history of diabetes. She does have a history of tobacco use and quit 8 years ago. She denies alcohol use. No family history of premature coronary artery disease. No rash on her chest. Blood pressure 99/60, heart rate 66, pulse ox 95% on room air. Patient is status post bolus of 1 L IV fluid, morphine IV, aspirin and Nitrostat. Patient is seen today in the emergency center waiting for a bed on the cardiac stepdown unit. -EKG: Sinus rhythm with no acute ST-T wave changes. -Chest x-ray: No acute process. -Laboratory studies: CBC CMP unremarkable. Troponins are negative x 4 -Home cardiac medications: None Review Of Systems: At the time of my exam: CONSTITUTIONAL: Denies fever or chills. HEENT: Denies blurred vision, vision changes, or eye pain. Denies hemoptysis CARDIOVASCULAR: Denies chest pain. Denies orthopnea. Denies PND. Denies palpitations RESPIRATORY: Denies shortness of breath. GASTROINTESTINAL: Denies abdominal pain. Denies nausea or vomiting. HEMATOLOGIC: Denies bleeding disorders. GENITOURINARY: Denies any blood in urine. SKIN: Denies puritis. Denies rash. Physical examination: Gen: This is a 54-year-old female in no acute distress VS: reviewed HEENT: Head is atraumatic, normocephalic. Pupils equal, round. Sclerae is anicteric. NECK: Supple. No JVD. LUNGS: Clear to auscultation. No wheezes or rhonchi. No intercostal retractions. HEART: Regular rate and rhythm. No murmur. ABDOMEN: Soft No tenderness. EXTREMITIES: No pedal edema. No calf tenderness. NEUROLOGICAL: Patient is awake, alert and oriented x3. Assessment: Atypical chest pain, acute coronary syndrome Fibromyalgia GERD Plan: Schedule patient for exercise stress test today Obtain 2-D echocardiogram and Doppler study to assess cardiac structure and function If testing is unremarkable, patient is cleared for discharge home from cardiology perspective. Thank you kindly for this consultation. Nurse practitioner note has been reviewed, I agree with documented findings and plan of care. Patient was seen and examined. Past Medical History Past Medical History: Asthma, GERD/Reflux, GI Bleed, Osteoarthritis (OA) Additional Past Medical History / Comment(s): ,hx kidney stones History of Any Multi-Drug Resistant Organisms: None Reported Past Surgical History: Cholecystectomy, Hernia Repair, Tonsillectomy Additional Past Surgical History / Comment(s): ovarian cyst, Past Anesthesia/Blood Transfusion Reactions: No Reported Reaction Past Psychological History: No Psychological Hx Reported Smoking Status: Former smoker Past Alcohol Use History: None Reported Past Drug Use History: None Reported - Past Family History Mother Family Medical History: No Reported History Brother(s) Family Medical History: Cancer Medications and Allergies Home Medications Medication Instructions Recorded Confirmed Type DULoxetine HCL [Cymbalta] 60 mg PO HS 02/05/23 07/05/24 History Hydroxychloroquine Sulfate 200 mg PO HS 05/01/24 07/05/24 History [Plaquenil] Ascorbic Acid [Vitamin C] 1,000 mg PO DAILY 07/05/24 07/05/24 History Cholecalciferol (Vitamin D3) 50 mcg PO DAILY 07/05/24 07/05/24 History [Vitamin D3 (50 Mcg = 2000 Iu)] Allergies Allergy/AdvReac Type Severity Reaction Status Date / Time No Known Allergies Allergy Verified 07/05/24 08:36 Physical Exam Vitals: Vital Signs Temp Pulse Resp BP Pulse Ox 07/05/24 06:54 66 18 99/60 95 07/05/24 05:35 60 20 94/57 99 07/05/24 04:23 97.6 F 67 17 86/57 99 07/05/24 02:47 59 L 17 91/63 93 L 07/05/24 00:35 65 18 120/74 97 07/04/24 22:00 68 18 96/61 95 07/04/24 21:58 75 17 92/58 95 07/04/24 17:45 97.9 F 85 20 141/85 99 Intake and Output 07/04/24 07/05/24 07/05/24 22:59 06:59 14:59 Other: Weight 113.398 kg Results 07/05/24 02:49 07/05/24 02:49 Cardiac Enzymes 07/04/24 07/04/24 07/04/24 Range/Units 18:20 18:20 21:09 AST 24 (14-36) U/L Troponin I <0.012 <0.012 (0.000-0.034) ng/mL 07/05/24 07/05/24 07/05/24 Range/Units 00:10 02:49 02:49 AST 24 (14-36) U/L Troponin I <0.012 <0.012 (0.000-0.034) ng/mL Coagulation 07/04/24 Range/Units 18:20 PT 10.1 (10.0-12.5) sec APTT 22.7 (22.0-30.0) sec CBC 07/04/24 07/05/24 Range/Units 18:20 02:49 WBC 8.1 6.8 (3.8-10.6) k/uL RBC 4.55 4.09 (3.80-5.40) m/uL Hgb 13.9 12.5 (11.4-16.0) gm/dL Hct 42.1 38.4 (34.0-46.0) % Plt Count 290 262 (150-450) k/uL Comprehensive Metabolic Panel 07/04/24 07/05/24 Range/Units 18:20 02:49 Sodium 137 137 (137-145) mmol/L Potassium 4.4 3.9 (3.5-5.1) mmol/L Chloride 104 106 (98-107) mmol/L Carbon Dioxide 23 23 (22-30) mmol/L BUN 19 H 18 H (7-17) mg/dL Creatinine 0.66 0.64 (0.52-1.04) mg/dL Glucose 89 136 H (74-99) mg/dL Calcium 9.4 9.1 (8.4-10.2) mg/dL AST 24 24 (14-36) U/L ALT 23 22 (4-34) U/L Alkaline Phosphatase 67 73 (38-126) U/L Total Protein 7.3 6.3 (6.3-8.2) g/dL Albumin 4.2 3.5 (3.5-5.0) g/dL Current Medications Generic Name Dose Route Start Last Admin Trade Name Freq PRN Reason Stop Dose Admin Al Hydroxide/Mg Hydroxide 30 ml 07/05/24 02:46 Mag Hydrox/Al Hydrox/Simeth 30 Ml Cup PO Q4HR PRN GI Upset Heparin Sodium (Porcine) 5,000 unit 07/05/24 00:00 07/05/24 00:43 Heparin Sodium,Porcine 5,000 Unit/Ml 1 Ml Vial SQ 5,000 unit Q8HR TIERA Administration Sodium Chloride 1,000 mls @ 75 mls/hr 07/04/24 22:15 07/04/24 23:30 Saline 0.9% IV 75 mls/hr .[id number] TIERA Administration Naloxone HCl 0.2 mg 07/04/24 22:05 Naloxone 0.4 Mg/Ml 1 Ml Vial IV Q2M PRN Opioid Reversal Ondansetron HCl 4 mg 07/05/24 02:46 07/05/24 04:27 Ondansetron 4 Mg/2 Ml Vial IVP 4 mg Q6HR PRN Administration Nausea And Vomiting Intake and Output 07/04/24 07/05/24 07/05/24 22:59 06:59 14:59 Other: Weight 113.398 kg 07/05/24 02:49 07/05/24 02:49
--- NOTE | 2024-07-05 13:19 | CA ---
Transthoracic Echo Report Name: Ana Parnell Age: 54 Gender: F : 1970 Exam Date: 07/05/2024 11:46 Exam Location: [facility] Ht (in): 67 Wt (lb): 250 Ordering Physician: Keanu Webber MD Attending/Referring Phys: Supervisor Mails Annabelle Rothman RDCS Procedure CPT: Indications: Chest Pain Cardiac Hx: Technical Quality: Fair Contrast 1: Total Dose (mL): Contrast 2: Total Dose (mL): MEASUREMENTS (Male / Female) Normal Values 2D ECHO LV Diastolic Diameter PLAX 4.9 cm 4.2 - 5.9 / 3.9 - 5.3 cm LV Systolic Diameter PLAX 3.4 cm IVS Diastolic Thickness 1.0 cm 0.6 - 1.0 / 0.6 - 0.9 cm LVPW Diastolic Thickness 1.0 cm 0.6 - 1.0 / 0.6 - 0.9 cm LV Relative Wall Thickness 0.4 RV Internal Dim ED PLAX 3.3 cm LA Systolic Diameter LX 3.8 cm 3.0 - 4.0 / 2.7 - 3.8 cm LV Diastolic Volume MOD 4C 118.2 cm??? LV Systolic Volume MOD 4C 56.2 cm??? LV Ejection Fraction MOD 4C 52.5 % LV Cardiac Index MOD 4C 1835.6 cm???/min???m??? LV Diastolic Length 4C 9.6 cm LV Systolic Length 4C 7.7 cm LV Diastolic Volume MOD 2C 116.6 cm??? LV Systolic Volume MOD 2C 57.8 cm??? LV Ejection Fraction MOD 2C 50.4 % LV Cardiac Index MOD 2C 1738.0 cm???/min???m??? LV Diastolic Length 2C 9.5 cm LV Systolic Length 2C 7.4 cm LA Volume 57.9 cm??? 18 - 58 / 22 - 52 cm??? LA Volume Index 24.4 cm???/m??? 16 - 28 cm???/m??? M-MODE Aortic Root Diameter MM 3.2 cm DOPPLER AV Peak Velocity 162.0 cm/s AV Peak Gradient 10.5 mmHg MV Area PHT 2.6 cm??? Mitral E Point Velocity 99.7 cm/s Mitral A Point Velocity 83.9 cm/s Mitral E to A Ratio 1.2 MV Deceleration Time 289.1 ms TR Peak Velocity 249.4 cm/s TR Peak Gradient 24.9 mmHg Right Ventricular Systolic Press 29.2 mmHg FINDINGS Left Ventricle Left ventricular ejection fraction is estimated at 55-60 %. Left ventricular cavity size normal. Mildly increased posterior wall thickness. Normal left ventricular wall motion. Right Ventricle Mild right ventricular dilatation. Right ventricular systolic pressure within normal limits. Right Atrium Normal right atrial size. No right atrial thrombus or mass seen. Left Atrium Mildly increased left atrial volume. Mildly increased left atrial area. No left atrial thrombus or mass present. Mitral Valve Structurally normal mitral valve. No evidence for mitral valve prolapse. No mitral stenosis. Trace mitral regurgitation. Aortic Valve Trileaflet aortic valve. No aortic valve stenosis or regurgitation. Tricuspid Valve Structurally normal tricuspid valve. Mild tricuspid regurgitation. Pulmonic Valve Structurally normal pulmonic valve. No pulmonic regurgitation. Pericardium No pericardial effusion. Aorta Normal size aortic root and proximal ascending aorta. CONCLUSIONS Normal biventricular systolic function Mild RV enlargement No significant valvular abnormalities noted No pericardial effusion Previewed by: Dr. Trevor Weathers MD (Electronically Signed) Final Date: 05 July 2024 13:18
--- NOTE | 2024-07-05 13:24 | CA ---
Exercise Stress Test Report Name: Ana Parnell Exam Date: 07/05/2024 11:02 Exam Location: [facility] Ht (in): 67 Wt (lb): 250 BSA: 2.22 Ordering Phys: Bibi Mckinney Referring Phys: JAM, Technologist: Cody Flaherty Age: 54 Gender: F : 1970 Procedure CPT: Indications: Chest Pain ICD-10 Codes: Patient History: Medications: see chart Meds past 24 hrs: Pretest Chest Pain: STRESS TEST Naif Protocol Exercise Duration (min:sec): 04:[address] Depressions (mm): Angina Score: Gabriel Score: Resting HR (bpm): 79 Peak HR (bpm): 148 Resting BP (mmHg): 105 / 63 Peak BP (mmHg): 170 / 66 MPHR: 166 Target HR: 141 % MPHR: 89 METS: 5.8 Total Dose: Peak Dose: Atropine: Double Product: 31188 BP Response: Stress Termination: Reached target heart rate Stress Symptoms: Dyspnea Stress Summary: ECG ANALYSIS Resting ECG: Stress ECG: CONCLUSIONS Average exercise tolerance Normal electrocardiogram stress test Dr. Trevor Weathers MD (Electronically Signed) Final Date: 05 July 2024 13:23
--- NOTE | 2024-07-05 15:01 | P.HPIM ---
History of Present Illness H&P Date: 07/05/24 This is a very pleasant 54-year-old female who presented to the emergency department with chest pain. Per nursing and ER documentation patient was reporting left-sided chest wall pain that radiated to the left shoulder with associated heartburn and nausea. Patient follows with Dr. Mcintosh in the out patient setting with a past medical history of asthma, GERD, obesity, osteoarthritis, previous history of kidney stones with abdominal surgeries, former smoker and denies alcohol or illicit drug use. Troponins x 4 were negative and other labs reviewed and within normal limits. Patient was admitted for observation with cardiology evaluation. Cardiology evaluated the patient early this morning recommending stress test and will await further report. REVIEW OF SYSTEMS: CONSTITUTIONAL: No fever, no malaise, no fatigue. HEENT: No recent visual problems or hearing problems. Denied any sore throat. CARDIOVASCULAR: Reports of intermittent chest pain that is nonprovoked and comes and goes, orthopnea, PND, no palpitations, no syncope. PULMONARY: No shortness of breath, no cough, no hemoptysis. GASTROINTESTINAL: No diarrhea, no nausea, no vomiting, no abdominal pain. NEUROLOGICAL: No headaches, no weakness, no numbness. HEMATOLOGICAL: Denies any bleeding or petechiae. GENITOURINARY: Denies any burning micturition, frequency, or urgency. MUSCULOSKELETAL/RHEUMATOLOGICAL: Denies any joint pain, swelling, or any muscle pain. ENDOCRINE: Denies any polyuria or polydipsia. The rest of the 14-point review of systems is negative. PHYSICAL EXAMINATION: GENERAL: The patient is alert and oriented x3, not in any acute distress. Well developed, obese HEENT: Pupils are round and equally reacting to light. EOMI. No scleral icterus. No conjunctival pallor. Normocephalic, atraumatic. No pharyngeal erythema. No thyromegaly. CARDIOVASCULAR: S1 and S2 present. No murmurs, rubs, or gallops. PULMONARY: Chest is clear to auscultation, no wheezing or crackles. ABDOMEN: Soft, obese, nontender, nondistended, normoactive bowel sounds. No palpable organomegaly. MUSCULOSKELETAL: No joint swelling or deformity. EXTREMITIES: No cyanosis, clubbing, or pedal edema. NEUROLOGICAL: Gross neurological examination did not reveal any focal deficits. SKIN: No rashes. Assessment: Chest pain, ruled out ACS, troponins x 4 negative History of asthma, not in exacerbation History of fibromyalgia History of GERD History of fibromyalgia Former smoker History of osteoarthritis Obesity with a BMI of 39.2 GI prophylaxis DVT prophylaxis Full code Plan: Patient was admitted under observation for cardiology evaluation. Patient evaluated by cardiology early this morning and troponins were negative maintain sinus mechanism on telemetry monitoring recommending stress test. Will await official stress report and per cardiology if negative patient may be cleared and outpatient follow-up with primary care provider as well as cardiology as needed. Patient also instructed to follow-up with primary care provider Dr. Mcintosh this week. The impression and plan of care has been dictated by Dedra Darby, Nurse Practitioner as directed. Dr. Judson MD I have performed a history and examination and MDM of this patient, discussed the same with the dictator, and agree with the dictator's assessment and plan as written ,documented as a scribe. Based on total visit time, I have performed more than 50% of the visit. Past Medical History Past Medical History: Asthma, GERD/Reflux, GI Bleed, Osteoarthritis (OA) Additional Past Medical History / Comment(s): ,hx kidney stones History of Any Multi-Drug Resistant Organisms: None Reported Past Surgical History: Cholecystectomy, Hernia Repair, Tonsillectomy Additional Past Surgical History / Comment(s): ovarian cyst, Past Anesthesia/Blood Transfusion Reactions: No Reported Reaction Past Psychological History: No Psychological Hx Reported Smoking Status: Former smoker Past Alcohol Use History: None Reported Past Drug Use History: None Reported - Past Family History Mother Family Medical History: No Reported History Brother(s) Family Medical History: Cancer Medications and Allergies Home Medications Medication Instructions Recorded Confirmed Type DULoxetine HCL [Cymbalta] 60 mg PO HS 02/05/23 07/05/24 History Hydroxychloroquine Sulfate 200 mg PO HS 05/01/24 07/05/24 History [Plaquenil] Ascorbic Acid [Vitamin C] 1,000 mg PO DAILY 07/05/24 07/05/24 History Cholecalciferol (Vitamin D3) 50 mcg PO DAILY 07/05/24 07/05/24 History [Vitamin D3 (50 Mcg = 2000 Iu)] Ondansetron Odt [Zofran Odt] 4 mg PO Q8HR PRN #20 tab 07/05/24 Rx Allergies Allergy/AdvReac Type Severity Reaction Status Date / Time No Known Allergies Allergy Verified 07/05/24 08:36 Physical Exam Vitals: Vital Signs Temp Pulse Resp BP Pulse Ox 07/05/24 10:45 97.7 F 70 20 95/55 98 07/05/24 08:04 73 22 102/65 97 07/05/24 06:54 66 18 99/60 95 07/05/24 05:35 60 20 94/57 99 07/05/24 04:23 97.6 F 67 17 86/57 99 07/05/24 02:47 59 L 17 91/63 93 L 07/05/24 00:35 65 18 120/74 97 07/04/24 22:00 68 18 96/61 95 07/04/24 21:58 75 17 92/58 95 07/04/24 17:45 97.9 F 85 20 141/85 99 Intake and Output 07/04/24 07/05/24 07/05/24 22:59 06:59 14:59 Other: Weight 113.398 kg Results CBC & Chem 7: 07/05/24 02:49 07/05/24 02:49 Labs: Abnormal Lab Results - Last 24 Hours (Table) 07/04/24 07/05/24 07/05/24 Range/Units 18:20 02:40 02:49 BUN 19 H 18 H (7-17) mg/dL Glucose 136 H (74-99) mg/dL POC Glucose (mg/dL) 124 H (70-110) mg/dL
--- NOTE | 2024-07-05 15:04 | P.DS ---
Providers Date of admission: 07/04/24 22:05 Expected date of discharge: 07/05/24 Attending physician: Ayo Diallo Consults: 07/04/24 22:05 Consult Physician Routine Consulting Provider: [facility] Consult Reason/Comments: chest pain Do you want consulting provider notified?: Yes Primary care physician: Thierry Mcintosh Hospital Course: Final diagnosis Chest pain, ruled out ACS, troponins x 4 negative, stress test was negative, likely musculoskeletal History of asthma, not in exacerbation History of fibromyalgia History of GERD Former smoker History of osteoarthritis Obesity with a BMI of 39.2 GI prophylaxis DVT prophylaxis Full code Discharge disposition Patient is being discharged in a stable condition with guarded prognosis to home. Patient will follow-up with Dr. Mcintosh in the outpatient setting upon discharge. Patient is to continue with current medications and outpatient follow-up with cardiology as scheduled. Total time taken is greater than 35 minutes. Hospital course This is a 54-year-old female who was recently admitted with chest pain that was intermittent although persistent and not letting up. Patient evaluated by cardiology recommending stress test and underwent stress test and echo which was within normal limits and has been cleared by cardiology. Patient reports she continues to have intermittent chest wall pains with significant history of fibromyalgia recommend outpatient follow-up with primary care provider. Patient has been cleared by cardiology. Please refer to cardiology notes for further HPI. Currently no reports of chest pain, shortness of breath, or palpitations. Patient is afebrile. No reports of nausea or vomiting and patient is tolerating diet. Patient will be discharged home today. Physical exam: Gen: This is a 54-year-old female who is awake, alert and oriented x 3, well- developed, morbidly obese HEENT: Head is atraumatic, normocephalic. Pupils equal, round. Sclerae is anicteric. NECK: Supple. No JVD. No lymphadenopathy. No thyromegaly. LUNGS: Diminished breath sounds bilaterally otherwise clear to auscultation. No wheezes or rhonchi. No intercostal retractions. HEART: S1, S2 are muffled ABDOMEN: Soft. Obese. Bowel sounds are present. No masses. No tenderness. EXTREMITIES: No pedal edema. No calf tenderness. NEUROLOGICAL: Patient is awake, alert and oriented x3. Cranial nerves 2 through 12 are grossly intact. Please refer to medication reconciliation sheet for a list of medications. The impression and plan of care has been dictated by Dedra Darby, Nurse Practitioner as directed. Dr. Judson MD I have performed a history and examination and MDM of this patient, discussed the same with the dictator, and agree with the dictator's assessment and plan as written ,documented as a scribe. Based on total visit time, I have performed more than 50% of the visit. Patient Condition at Discharge: Stable Plan - Discharge Summary New Discharge Prescriptions: New Ondansetron Odt [Zofran Odt] 4 mg PO Q8HR PRN #20 tab PRN Reason: Nausea Continue DULoxetine HCL [Cymbalta] 60 mg PO HS Ascorbic Acid [Vitamin C] 1,000 mg PO DAILY Hydroxychloroquine Sulfate [Plaquenil] 200 mg PO HS Cholecalciferol (Vitamin D3) [Vitamin D3 (50 Mcg = 2000 Iu)] 50 mcg PO DAILY Discharge Medication List DULoxetine HCL [Cymbalta] 60 mg PO HS 02/05/23 [History] Hydroxychloroquine Sulfate [Plaquenil] 200 mg PO HS 05/01/24 [History] Ascorbic Acid [Vitamin C] 1,000 mg PO DAILY 07/05/24 [History] Cholecalciferol (Vitamin D3) [Vitamin D3 (50 Mcg = 2000 Iu)] 50 mcg PO DAILY 07/05/24 [History] Ondansetron Odt [Zofran Odt] 4 mg PO Q8HR PRN #20 tab 07/05/24 [Rx] Follow up Appointment(s)/Referral(s): Thierry Mcintosh MD [Primary Care Provider] - 1-2 days Trevor Weathers MD [STAFF PHYSICIAN] - As Needed Patient Instructions/Handouts: Chest Pain (DC) Activity/Diet/Wound Care/Special Instructions: Activity limited until follow-up Follow-up with primary care provider on discharge Follow-up with cardiology outpatient as needed Continue current medications Discharge Disposition: HOME SELF-CARE
[2024-07-05 15:52] VITALS: BP 101/69; PULSE 76; RESP 16; TEMP 98.2
== END 2024-07-05 16:05 | disposition home or self-care (01) ==
LOC: EC 17:34 → 6NMEDSUR 22:05
PROVIDERS: ADMIT Hospitalist; ATTEND Hospitalist
DX: R07.89 Other chest pain (principal); J45.909 Unspecified asthma, uncomplicated; K21.9 Gastro-esophageal reflux disease without esophagitis; M25.512 Pain in left shoulder; M79.7 Fibromyalgia; M19.90 Unspecified osteoarthritis, unspecified site; E66.01 Morbid (severe) obesity due to excess calories; Z68.39 Body mass index [BMI] 39.0-39.9, adult; Z79.899 Other long term (current) drug therapy; Z87.891 Personal history of nicotine dependence; Z87.442 Personal history of urinary calculi; Z98.890 Other specified postprocedural states
CPT/HCPCS: 96361; 96372; 96374; 96375; 99285; 36415; 93005; 93017; 93306; 80053 ×2; 83690; 83735; 84484 ×2; 85025 ×2; 85610; 85730; 71046; G0378 ×2; J2270; J1644; J2405

== ENCOUNTER → 2024-08-30 | Outpatient (CLI) | payer OTHER ==
--- NOTE | 2024-08-30 10:58 | MM ---
Reason for Exam: Screening (asymptomatic). Last mammogram was performed 2 year(s) and 4 month(s) ago. Patient History: Menarche at age 14. First Full-Term at age 35. Late child-bearing (after 30). Currently using Hormonal Contraceptives, for 6 months. Risk Values: Tanisha 5 year model risk: 1.4%. NCI Lifetime model risk: 10.4%. Prior Study Comparison: 08/22/2020 Bilateral Screening Mammogram, [facility]. 08/05/2021 Right Diagnostic Mammogram, [facility]. 04/22/2022 Bilateral MG 3D diag mammo w/cad [facility], [facility]. Tissue Density: The breasts are extremely dense, which lowers the sensitivity of mammography. Findings: Analyzed By CAD. There is no suspicious group of microcalcifications or new suspicious mass in either breast. Overall Assessment: Benign, BI-RAD 2 Management: Screening Mammogram of both breasts in 1 year. . Patient should continue monthly self-breast exams. A clinical breast exam by your physician is recommended on an annual basis. This exam should not preclude additional follow-up of suspicious palpable abnormalities. Note on Tanisha scores and lifetime risk: 1. A Tanisha score greater than 3% is considered moderate risk. If this is the case, consider specialist referral to assess eligibility for a risk reducing agent. 2. If overall lifetime risk for the development of breast cancer is 20% or higher, the patient may qualify for future screening with alternating mammogram and breast MRI. [facility], , 08/30/2024 7:42 AM. Electronically signed and approved by: Morales Bai M.D. Radiologis
== END | disposition home or self-care (01) ==
LOC: RADMAMWWP 07:19
PROVIDERS: ATTEND Family Medicine
DX: Z12.31 Encounter for screening mammogram for malignant neoplasm of breast (principal); R92.343 Mammographic extreme density, bilateral breasts; Z79.3 Long term (current) use of hormonal contraceptives
CPT/HCPCS: 77063; 77067

== ENCOUNTER → 2024-09-20 | Outpatient (CLI) | payer OTHER ==
[2024-09-20 08:14] VITALS: BP 139/87; PULSE 73; RESP 16; TEMP 96.8
--- NOTE | 2024-09-20 15:53 | P.PAINPG ---
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 Pt states pain level is provoked at 6 /10 in intensity, constant, localized in the lumbar spine, predominantly axial, sharp in character w occasional shooting pain towards the LLE. Pain is provoked by sitting/ standing for periods > 30 min. Pain is alleviated by PT x 6 wks which ended in Jan 2024, physician guided home exercises every other day since Jan 2024, heat, medications, repositioning and rest . Interventional procedures include SRINIVAS L4-L5 x1 Medications include Ibu REVIEW OF ORGAN SYSTEMS: CONSTITUTIONAL: No fevers or chills. No recent weight loss. NEUROLOGICAL: + numbness and tingling along the distal extremities. No seizure disorders or headaches. MUSCULOSKELETAL: + pain PSYCHIATRIC: Denies current depression or suicidal thoughts. Physical Examinations : Constitutional : Cooperative , not in acute distress . Neurologic : Cranial nerve II to XII intact. No focal neurological deficits. Psychiatric : alert & oriented x 3. Matching mood & appropriate affect. Judgment & insight intact. Musculoskeletal : Cervical Spine Motor strength in the deltoid and biceps: Normal right side. Normal Left side Motor strength biceps and the wrist extensors: Normal right side . Normal left side Motor strength in the triceps muscle: Normal right side. Normal left side Deep tendon reflexes: Normal at the biceps. Normal at Brachioradialis. Normal at triceps Vertebral body tenderness to deep palpation over Cervical facet loading test: positive bilaterally Spurling test: positive bilaterally Neck distraction test: positive bilaterally Sofia sign: positive bilaterally Lumbar spine Motor strength lower extremities ,thigh and legs 5/5 Right side , 5/5 Left side Deep tendon reflexes : Normal Knee Jerk. Normal Ankle Jerk Vertebral body tenderness over L4 Nava Test positive L> R L4-L5 Lumbar facet Loading Test: positive Right / positive Left Range of motion of the lumbar spine Flexion 30 degrees, extension 10 degrees Straight Leg Raise test: Left/ Right positive at degrees Mroa test: positive right / positive left. Severe tenderness over the Sacroiliac joint on the Right / Left sides Gaenslen test: positive bilaterally Seated flexion test: positive bilaterally. Sacral spine : Severe tenderness over the Sacroiliac joint: right side / left side Range of motion: Flexion of the lumbar spine <60 degrees Range of motion: Extension of the lumbar spine <20 degrees Gaenslen's Test positive Mora test: positive right side / left side Thigh Thrust Test Sacral Thrust Test Imaging: MRI non contrast lumbar spine from 02/02/24 reviewed Assessment/ Plan : L4-L5 facet arthropathy, L5-S1 disc dessication Recommendation of SRINIVAS L4-L5 #2. Risk, benefits of procedure discussed and patient verbalized understanding. Protocol for discontinuation/continuation of medication surrounding procedure discussed.. All questions answered. I have spent greater than 30 minutes on patient care today. Dr Christina was available by phone for the evaluation of this patient. The time was used to review the medical records including relevant urine studies and Prescription history (MAPs), review of the available imaging, evaluation and examination of the patient, coordination of care with the medical staff and if applicable referring physicians, as well as creation of the medical record - Pain Location Bilateral Lower Back Non-Pharmacological Interventions: Heat, Ice, Inactivity, Physical Therapy, Position/Reposition, Sitting, Standing Pharmacological Interventions: Epidural, PRN Medication PQRS Narrative: Smoking Status Former smoker Narcotic Agreement Date Signed 04/06/24 Hx Alcohol Use (MH) No Home Medications: Ambulatory Orders DULoxetine HCL [Cymbalta] 60 mg PO HS 02/05/23 Hydroxychloroquine Sulfate [Plaquenil] 200 mg PO HS 05/01/24 Ascorbic Acid [Vitamin C] 1,000 mg PO DAILY 07/05/24 Cholecalciferol (Vitamin D3) [Vitamin D3 (50 Mcg = 2000 Iu)] 50 mcg PO DAILY 07/05/24 Ondansetron Odt [Zofran Odt] 4 mg PO Q8HR PRN #20 tab 07/05/24 Controlled Substance Measures - Controlled Substance Measures Is patient prescribed a controlled substance at discharge?: Yes When asked, does pt state using other controlled substances?: No If prescribed controlled substance>3 days was MAPS reviewed?: Prescribed <3 Days
== END ==
LOC: PNWHC3 07:47
PROVIDERS: ATTEND Specialist
DX: M47.26 Other spondylosis with radiculopathy, lumbar region (principal); M51.17 Intervertebral disc disorders with radiculopathy, lumbosacral region; Z87.891 Personal history of nicotine dependence
CPT/HCPCS: 99211

== ENCOUNTER → 2024-11-02 | Outpatient (CLI) | payer OTHER ==
[2024-11-02 14:23] VITALS: BP 123/85; PULSE 101; RESP 16; TEMP 97.7
== END ==
LOC: PNWHC3 14:08
PROVIDERS: ATTEND Specialist
DX: M47.816 Spondylosis without myelopathy or radiculopathy, lumbar region (principal); Z87.891 Personal history of nicotine dependence
CPT/HCPCS: 99211